=== PATIENT | male | born 1960 | race Caucasian/White ===

== ENCOUNTER 2016-08-31 09:08 | Inpatient (IN) | payer OTHER ==
[2016-08-31] VITALS (9 sets, daily range): BP systolic 132–187; BP diastolic 76–127; PULSE 79–109; RESP 18–22; TEMP 96.2–98.7; O2SAT 92–100
[~2016-08-31] VITALS: Ht 167.6 cm; Wt 66.3 kg
[~2016-08-31 09:08] MED LIST: NAPR500 PO; RANI150C PO; XANA1TAB6 PO
[2016-08-31] MEDS ORDERED: SODIUM CHLOR 0.9% 1000 ML INJ 1,000 ML IV SCH (09:30)
[2016-08-31] MEDS ORDERED: ASPI325T PO (09:31)
[2016-08-31] MEDS ORDERED: LISI-519 PO (09:31)
--- NOTE | 2016-08-31 09:43 | RADRPT ---
EXAM DATE/TIME: 08/31/2016 09:34 [facility] COMPARISON: No previous studies available for comparison. INDICATIONS : Short of breath. MEDICAL HISTORY : Hypertension. SURGICAL HISTORY : None. ENCOUNTER: Initial ACUITY: 1 day PAIN SCORE: 0/10 LOCATION: Bilateral chest FINDINGS: A single view of the chest demonstrates the lungs to be symmetrically aerated without evidence of mas s, infiltrate or effusion. The cardiomediastinal contours are unremarkable. Osseous structures are intact. CONCLUSION: 1. No acute cardiopulmonary findings. Adolph Pepe MD on August 31, 2016 at 9:40 Board Certified Radiologist. This report was verified electronically.
[2016-08-31 09:51] LABS: AUTOMATED NEUTROPHIL # 5.3 TH/MM3 (1.8-7.7); BASOPHIL # 0.1 TH/MM3 (0-0.2); BASOPHIL % 0.9 % (0.0-2.0); EOSINOPHIL # 0.4 TH/MM3 (0-0.4); EOSINOPHIL % 4.2 % (0.0-4.0); HEMATOCRIT 43.5 % (39.0-51.0); HEMO FLAGS DIFF FINAL; LYMPHOCYTE # 2.9 TH/MM3 (1.0-4.8); MEAN CELL VOLUME 88.7 FL (80.0-100.0); MEAN CORPUSCULAR HEMOGLOBIN 30.8 PG (27.0-34.0); MEAN CORPUSCULAR HGB CONC 34.7 % (32.0-36.0); MONO % 8.4 % (0.0-8.0); NEUT % 55.5 % (16.0-70.0); PLATELET COUNT 304 TH/MM3 (150-450); RED BLOOD COUNT 4.91 MIL/MM3 (4.50-5.90); RED CELL DISTRIBUTION WIDTH 14.3 % (11.6-17.2); WHITE BLOOD COUNT 9.5 TH/MM3 (4.0-11.0)
[2016-08-31 09:58] LABS: ANION GAP 12 MEQ/L (5-15); AST (GOT) 32 U/L (15-37); BICARBONATE 20.9 MEQ/L (21.0-32.0); BLOOD UREA NITROGEN 14 MG/DL (7-18); CHLORIDE 102 MEQ/L (98-107); GLOMERULAR FILTRATION RATE 92 ML/MIN (>89); POTASSIUM 3.8 MEQ/L (3.5-5.1); SODIUM (NA) 135 MEQ/L (136-145)
[2016-08-31 10:04] LABS: ALKALINE PHOSPHATASE 150 U/L (45-117); ALT (GPT) 33 U/L (12-78); TOTAL BILIRUBIN ADULT 0.3 MG/DL (0.2-1.0)
--- NOTE | 2016-08-31 10:08 | RADRPT ---
EXAM DATE/TIME: 08/31/2016 09:40 [facility] COMPARISON: CT BRAIN W/O CONTRAST, April 13, 2016, 16:01. INDICATIONS : Altered mental status, right side weakness. RADIATION DOSE: 56.35 CTDIvol (mGy) MEDICAL HISTORY : Cerebrovascular disease. Hypertension. SURGICAL HISTORY : None. ENCOUNTER: Initial ACUITY: 1 day PAIN SCALE: Non-responsive LOCATION: Cranial TECHNIQUE: Multiple contiguous axial images were obtained of the head. Using automated exposure control and adj ustment of the mA and/or kV according to patient size, radiation dose was kept as low as reasonably a chievable to obtain optimal diagnostic quality images. FINDINGS: Old lacunar infarcts are noted within the right basal ganglia and are stable. There is no acute infarct, acute hemorrhage, mass effect or extra-axial fluid collections. The ventricles, sulci cisterns are normal in size, shape and position for the patients age. The bone windows are unremarkable. CONCLUSION: 1. Old lacunar infarcts within the right basal ganglia. 2. No acute infarct, acute hemorrhage, mass effect or extra-axial fluid collections. Zheng Yan MD on August 31, 2016 at 9:50 Board Certified Radiologist. This report was verified electronically.
[2016-08-31] MEDS ORDERED: HEPARIN SODIUM - SQ 10,000 UNITS/ML VIAL SQ ONE (10:30)
--- NOTE | 2016-08-31 10:33 | PD ---
HPI Chief Complaint: Neuro Symptoms/ Deficits Time Seen by Provider: 09:16 Travel History International Travel<30 days: No Contact w/Intl Traveler<30days: No Traveled to known affect area: No History of Present Illness HPI 56-year-old male was brought by ems after family member found him this morning with aphasia, right-sided weakness. Patient was seen in emergency room and [place] in April 2016 with acute CVA. Patient had residual left-sided weakness. Patient had a CT scan of the brain which was normal at that time. Patient was advised to be admitted however patient left AGAINST MEDICAL ADVICE. Patient has been taken aspirin 325 mg daily and lisinopril for his high blood pressure. Patient has been seen by Dr. Thrasher. Patient states that he woke up this morning and went to the bathroom and almost fell over because of right- sided weakness. Patient last seen normal was last night. Patient could not speak this morning. Family member called EMS. Patient was transferred to ED for evaluation. PFSH Past Medical History Hx Anticoagulant Therapy: Yes (ASPIRIN ) Arthritis: Yes Anxiety: Yes Cerebrovascular Accident: Yes Diminished Hearing: No Hypertension: Yes Immunizations Current: No Tetanus Vaccination: Unknown Influenza Vaccination: No ?: Not Past Surgical History Surgical History: No Previous Surgery Other Surgery: Yes (HERNIA) Social History Alcohol Use: Yes (OCCASIONALLY ) Tobacco Use: Yes Substance Use: No Allergies-Medications (Allergen,Severity, Reaction): Coded Allergies: No Known Allergies (Verified , 04/17/05) Reported Meds & Prescriptions Reported Meds & Active Scripts Active Reported Lisinopril 5 Mg Tab 5 Mg PO DAILY Review of Systems General / Constitutional: No: Fever Eyes: No: Visual changes HENT: No: Headaches Cardiovascular: No: Chest Pain or Discomfort Respiratory: No: Shortness of Breath Gastrointestinal: No: Abdominal Pain Genitourinary: No: Dysuria Musculoskeletal: No: Pain Skin: No Rash Neurologic: No: Weakness Psychiatric: No: Depression Endocrine: No: Polydipsia Hematologic/Lymphatic: No: Easy Bruising Physical Exam Narrative GENERAL: Well-nourished, well-developed patient. SKIN: Warm and dry. HEAD: Normocephalic. EYES: No scleral icterus. No injection or drainage. Pupils 3 mm equal reactive. NECK: Supple, trachea midline. No JVD or lymphadenopathy. CARDIOVASCULAR: Regular rate and rhythm without murmurs, gallops, or rubs. RESPIRATORY: Breath sounds equal bilaterally. No accessory muscle use. GASTROINTESTINAL: Abdomen soft, non-tender, nondistended. MUSCULOSKELETAL: No cyanosis, or edema. BACK: Nontender without obvious deformity. No CVA tenderness. Neurologic exam: Patient's aphasia. Patient has weakness of right arm right leg. Sensory function intact. Patient cannot raise the right arm off the bed. Patient can minimally raise the right leg off the bed. Positive Babinski bilaterally. Positive clonus left leg. Data Data Last Documented VS Vital Signs Date Time Temp Pulse Resp B/P Pulse Ox O2 Delivery O2 Flow Rate FiO2 08/31/16 10:16 97.7 84 22 171/127 100 Nasal Cannula 2 Orders Electrocardiogram (08/31/16 ) Complete Blood Count With Diff (08/31/16 09:22) Comprehensive Metabolic Panel (08/31/16 09:22) Prothrombin Time / Inr (Pt) (08/31/16 09:22) Act Partial Throm Time (Ptt) (08/31/16:22) Urinalysis - C+S If Indicated (08/31/16 09:22) Chest, Single Ap (08/31/16 09:22) Ct Brain W/O Iv Contrast(Rout) (08/31/16 09:22) Iv Access Insert/Monitor (08/31/16 09:22) Ecg Monitoring (08/31/16 09:22) Oximetry (08/31/16 09:22) Sodium Chlor 0.9% 1000 Ml Inj (Ns 1000 M (08/31/16 09:30) [place] (08/31/16 09:22) Mri Brain W/O Contrast (08/31/16 10:20) Mra Brain W/O Contrast (Cow) (08/31/16 10:20) Mra Carotids W Contrast (08/31/16 10:20) Labs Laboratory Tests Test 08/31/16 09:30 White Blood Count 9.5 TH/MM3 Red Blood Count 4.91 MIL/MM3 Hemoglobin 15.1 GM/DL Hematocrit 43.5 % Mean Corpuscular Volume 88.7 FL Mean Corpuscular Hemoglobin 30.8 PG Mean Corpuscular Hemoglobin 34.7 % Concent Red Cell Distribution Width 14.3 % Platelet Count 304 TH/MM3 Mean Platelet Volume 8.0 FL Neutrophils (%) (Auto) 55.5 % Lymphocytes (%) (Auto) 31.0 % Monocytes (%) (Auto) 8.4 % Eosinophils (%) (Auto) 4.2 % Basophils (%) (Auto) 0.9 % Neutrophils # (Auto) 5.3 TH/MM3 Lymphocytes # (Auto) 2.9 TH/MM3 Monocytes # (Auto) 0.8 TH/MM3 Eosinophils # (Auto) 0.4 TH/MM3 Basophils # (Auto) 0.1 TH/MM3 CBC Comment DIFF FINAL Differential Comment Sodium Level 135 MEQ/L Potassium Level 3.8 MEQ/L Chloride Level 102 MEQ/L Carbon Dioxide Level 20.9 MEQ/L Anion Gap 12 MEQ/L Blood Urea Nitrogen 14 MG/DL Creatinine 0.86 MG/DL Estimat Glomerular Filtration 92 ML/MIN Rate Random Glucose 123 MG/DL Calcium Level 9.1 MG/DL Total Bilirubin 0.3 MG/DL Aspartate Amino Transf 32 U/L (AST/SGOT) Alanine Aminotransferase 33 U/L (ALT/SGPT) Alkaline Phosphatase 150 U/L Total Protein 7.8 GM/DL Albumin 4.0 GM/DL [facility] Medical Decision Making Medical Screen Exam Complete: Yes Emergency Medical Condition: Yes Medical Record Reviewed: Yes Differential Diagnosis Differential diagnosis including TIA, CVA. Narrative Course 56-year-old male with aphasia, right-sided weakness. Patient woke up with symptoms this morning. History of CVA in April 2016. Patient's on aspirin 325 mg daily. Patient took aspirin by mouth this morning with difficulty. Patient woke up this morning with the symptoms. Patient is not a candidate for TPA. I spoke with Dr. Salena valdovinos, neurologist hand stonecutter. Advised aspirin and MRI/MRA. Normal saline solution 70 cc an hour. Head of bed flat. O2 2 L nasal cannula. Patient's symptoms waxing and waning. I spoke with Dr. Martino , advised heparin 5000 unit subcutaneous now and every 8 hour. Proceed with MRI /MRA. Diagnosis Primary Impression: Acute CVA (cerebrovascular accident) Trever Virgen MD Aug 31, 2016 10:33
[2016-08-31 10:34] LABS: APTT (PATIENT) 29.9 SEC (24.3-30.1); PROTHROMBIN TIME - PATIENT 11.3 SEC (9.8-11.6)
[2016-08-31] MEDS ORDERED: SODIUM CHLORIDE 0.9% FLUSH 5 ML FLUSH IVF PRN ×2 (11:00→11:15)
[2016-08-31] MEDS ORDERED: ONDANSETRON HCL 4 MG/2 ML VIAL IV PRN (11:00)
[2016-08-31 11:12] LABS: BACTERIA, URINE RARE /hpf; BLOOD, URINE NEG (NEG); GLUCOSE,URINE NEG (NEG); KETONE, URINE NEG (NEG); MUCUS URINE FEW /lpf (OCC); NITRITE,URINE NEG (NEG); PH, URINE 5.5 (5.0-8.5); URINE COLOR LIGHT-YELLOW (YELLW/STRAW)
[2016-08-31 11:14] LABS: COMMENT (UR) CULT NOT INDICATED; CULTURE IF INDICATED CULT NOT INDICATED
[2016-08-31] MEDS ORDERED: ENALAPRILAT 1.25 MG/ML VIAL IV PRN (11:15)
--- NOTE | 2016-08-31 12:37 | HHI.HP ---
[facility] Service [facility] Primary Care Physician No Primary Care Physician Admission Diagnosis acute CVA Diagnoses: (1) Acute CVA (cerebrovascular accident) Chief Complaint: slurred speech and right sided weakness Travel History International Travel<30 Days: No Contact w/Intl Traveler <30 Da: No Traveled to Known Affected Are: No History of Present Illness 56-year-old male with a history of prior CVA 04/2016 was brought to the ED by EMS for evaluation of aphasia and right-sided weakness. The patient and , around 8 AM this morning as patient's walked about from work his balance and upon himself referral for at least 10 minutes however was able to get up and get back to his room where his immediately called EMS due to slurred speech him and right-sided weakness. Patient reports feeling well prior to going to bed last night. Otherwise he has no chest pain, shortness of breath. Review of Systems Other Other 12 systems reviewed and are negative except for the one mentioned in history of present illness Past Family Social History Past Medical History Arthritis: Yes Anxiety: Yes Cerebrovascular Accident: Yes Hypertension: Yes Past Surgical History HERNIA repair Reported Medications Lisinopril 5 Mg Tab 5 Mg PO DAILY Allergies: Coded Allergies: No Known Allergies (Verified , 04/17/05) Family History Family history positive for hypertension Social History Alcohol Use: Yes (OCCASIONALLY ) Tobacco Use: Yes Substance Use: No Physical Exam Vital Signs Vital Signs Date Time Temp Pulse Resp B/P Pulse Ox O2 Delivery O2 Flow Rate FiO2 08/31/16 11:45 92 21 08/31/16 11:23 97.7 79 22 158/76 99 Nasal Cannula 2 08/31/16 10:16 97.7 84 22 171/127 100 Nasal Cannula 2 08/31/16 09:29 100 Nasal Cannula 2 08/31/16 09:16 97.7 103 22 187/113 100 Nasal Cannula 2 08/31/16 09:16 103 18 100 Room Air 08/31/16 09:10 98.7 101 18 187/113 97 Physical Exam GENERAL: This is a well-nourished, well-developed patient, in no apparent distress however with slurred speech. SKIN: No rashes, ecchymoses or lesions. Cool and dry. HEAD: Atraumatic. Normocephalic. No temporal or scalp tenderness. EYES: Pupils equal round and reactive. Extraocular motions intact. No scleral icterus. No injection or drainage. ENT: Nose without bleeding, purulent drainage or septal hematoma. Throat without erythema, tonsillar hypertrophy or exudate. Uvula midline. Airway patent. NECK: Trachea midline. No JVD or lymphadenopathy. Supple, nontender, no meningeal signs. CARDIOVASCULAR: Regular rate and rhythm without murmurs, gallops, or rubs. RESPIRATORY: Clear to auscultation. Breath sounds equal bilaterally. No wheezes , rales, or rhonchi. GASTROINTESTINAL: Abdomen soft, non-tender, nondistended. No hepato-splenomegaly , or palpable masses. No guarding. MUSCULOSKELETAL: Extremities without clubbing, cyanosis, or edema. No joint tenderness, effusion, or edema noted. No calf tenderness. Negative Homans sign bilaterally.3/5 RUE and RLE NEUROLOGICAL: Awake and alert. Right-sided weakness Laboratory Laboratory Tests Test 08/31/16 08/31/16 08/31/16 09:30 10:06 10:56 White Blood Count 9.5 Red Blood Count 4.91 Hemoglobin 15.1 Hematocrit 43.5 Mean Corpuscular Volume 88.7 Mean Corpuscular Hemoglobin 30.8 Mean Corpuscular Hemoglobin 34.7 Concent Red Cell Distribution Width 14.3 Platelet Count 304 Mean Platelet Volume 8.0 Neutrophils (%) (Auto) 55.5 Lymphocytes (%) (Auto) 31.0 Monocytes (%) (Auto) 8.4 Eosinophils (%) (Auto) 4.2 Basophils (%) (Auto) 0.9 Neutrophils # (Auto) 5.3 Lymphocytes # (Auto) 2.9 Monocytes # (Auto) 0.8 Eosinophils # (Auto) 0.4 Basophils # (Auto) 0.1 CBC Comment DIFF FINAL Differential Comment Sodium Level 135 Potassium Level 3.8 Chloride Level 102 Carbon Dioxide Level 20.9 Anion Gap 12 Blood Urea Nitrogen 14 Creatinine 0.86 Estimat Glomerular Filtration 92 Rate Random Glucose 123 Calcium Level 9.1 Total Bilirubin 0.3 Aspartate Amino Transf 32 (AST/SGOT) Alanine Aminotransferase 33 (ALT/SGPT) Alkaline Phosphatase 150 Total Protein 7.8 Albumin 4.0 Prothrombin Time 11.3 Prothromb Time International 1.0 Ratio Activated Partial 29.9 Thromboplast Time Urine Color LIGHT-YELLOW Urine Turbidity CLEAR Urine pH 5.5 Urine Specific [place] 1.007 Urine Protein NEG Urine Glucose (UA) NEG Urine Ketones NEG Urine Occult Blood NEG Urine Nitrite NEG Urine Bilirubin NEG Urine Urobilinogen LESS THAN 2.0 Urine Leukocyte Esterase NEG Urine RBC LESS THAN 1 Urine WBC LESS THAN 1 Urine Bacteria RARE Urine Mucus FEW Microscopic Urinalysis Comment CULT NOT INDICATED Result Diagram: 08/31/1692908/31/16929 Imaging Last Impressions Head CT 08/31/16921 Signed Impressions: Service Date/Time: Wednesday, August 31, 2016 09:40 - CONCLUSION: 1. Old lacunar infarcts within the right basal ganglia. 2. No acute infarct, acute hemorrhage, mass effect or extra-axial fluid collections. Zheng Yan MD Chest X-Ray 08/31/16921 Signed Impressions: Service Date/Time: Wednesday, August 31, 2016 09:34 - CONCLUSION: 1. No acute cardiopulmonary findings. Adolph Pepe MD Assessment and Plan Problem List: (1) Acute CVA (cerebrovascular accident) ICD Code: I63.9 Status: Acute Assessment and Plan 56-year-old male with Acute CVA: Treatment per stroke protocol -Continue with aspirin -Start statin therapy -NIHSS, Neuro checks, Monitor on telemetry -PT/OT/ST evaluations, consult rehab medicine -allow permissive HTN, IV Vasotec and IV labetalol if SBP >220 -Check lipid profile and HgbA1c -Check carotid U/S -Head CT 08/31/16 noted and review by me with the finding of Old lacunar infarcts within the right basal ganglia. No acute infarct, acute hemorrhage, mass effect -Check brain MRI/MRA -Check echocardiogram -Neurology consulted History of hypertension: We will allow for permissive hypertension Tobacco abuse: Counseled to quit DVT prophylaxis: Bilateral SCDs Code Status Full code Discussed Condition With Patient, , ED physician Physician Certification 2 Midnight Certification Type: Admission for Inpatient Services Order for Inpatient Services The services are ordered in accordance with Medicare regulations or non- Medicare payer requirements, as applicable. In the case of services not specified as inpatient-only, they are appropriately provided as inpatient services in accordance with the 2-midnight benchmark. Estimated LOS (days): 2 days is the estimated time the patient will need to remain in the hospital, assuming treatment plan goals are met and no additional complications. Post-Hospital Plan: Not yet determined Alex Torres MD Aug 31, 2016 12:37
--- NOTE | 2016-08-31 12:59 | RADRPT ---
EXAM DATE/TIME: 08/31/2016 12:10 [facility] COMPARISON: CT BRAIN W/O CONTRAST, April 13, 2016, 16:01. INDICATIONS : Right sided weakness. MEDICAL HISTORY : Hypertension. SURGICAL HISTORY : None. ENCOUNTER: Initial ACUITY: 1 day PAIN SCORE: 0/10 LOCATION: head TECHNIQUE: Multiplanar, multisequence MRI of the brain was performed without contrast. FINDINGS: There is a focal area of restricted diffusion involving the left conklin radiata consistent with small acute infarct in the left middle cerebral artery distribution. No acute hemorrhage, midline shift or extra- axial fluid collections are noted. The ventricles, sulci and cisterns are unremarkable. There are old lacunar infarcts within the right basal ganglia. Minimal periventricular white matter small vessel ischemic changes are noted bilaterally. CONCLUSION: 1. Focal area of restricted diffusion involving the left conklin radiata consistent with small acute i nfarct in the left middle cerebral artery distribution. 2. Old lacunar infarcts within the right basal ganglia. 3. Minimal periventricular white matter small vessel ischemic changes bilaterally. 4. No acute hemorrhage, midline shift or extra-axial fluid collections. Dr. Virgen was called with the findings of the examination 12:55 PM on 08/31/16. Zheng Yan MD on August 31, 2016 at 12:47 Board Certified Radiologist. This report was verified electronically.
[2016-08-31] MEDS ORDERED: GADODIAMIDE PF 287 MG/ML 20 ML VIAL (for RAD MRI) IV ONE (13:03)
--- NOTE | 2016-08-31 13:25 | RADRPT ---
EXAM DATE/TIME: 08/31/2016 12:10 [facility] COMPARISON: MRA CAROTIDS W CONTRAST, August 31, 2016, 12:10. INDICATIONS : Right sided weakness. MEDICAL HISTORY : Hypertension. SURGICAL HISTORY : None. ENCOUNTER: Initial ACUITY: 1 day PAIN SCORE: 0/10 LOCATION: head Please note a normal MRA of the brain does not entirely exclude the possibility of a small aneurysm, nor the possibility of distal intracranial vessel disease. TECHNIQUE: 3D time of flight MRA was performed. Source images, multiplanar STS MIP, and 3D volume MIP reconstru ctions were reviewed. FINDINGS: There is excellent visualization of the major intracranial arteries out to the second-order branch ve ssels. Scattered atherosclerotic plaque most pronounced within the right M1 segment where there are s cattered areas of mild luminal narrowing. No hemodynamically significant stenosis appreciated. There is no evidence for aneurysm, vessel truncation or stenosis, and no evidence for vascular malformatio n.CONCLUSION: 1. Atherosclerotic plaque without hemodynamically significant stenosis observed. Wiliam Santizo Jr., MD on August 31, 2016 at 13:20 Board Certified Radiologist. This report was verified electronically.
[2016-08-31] MEDS ORDERED: RESP: ALBUTEROL 2.5 MG/IPRATROPIUM 0.5 MG NEB (PRN) NEB (13:30)
--- NOTE | 2016-08-31 13:31 | RADRPT ---
EXAM DATE/TIME: 08/31/2016 12:10 [facility] COMPARISON: No previous studies available for comparison. INDICATIONS : Right sided weakness. CONTRAST: 20 cc Omniscan (gadodiamide) IV MEDICAL HISTORY : Hypertension. SURGICAL HISTORY : None. ENCOUNTER: Initial ACUITY: 1 day PAIN SCORE: 0/10 LOCATION: neck Percent stenosis is calculated using the diameter of the stenotic region over the diameter of the nor mal distal internal carotid artery. TECHNIQUE: Bolus infused MRA of the extracranial circulation was performed using a neurovascular coil. Post pro cessing was performed including rotationg subvolume maximum intensity projections of each carotid art corie, rotating full volume maximum intensity projections of both carotid arteries, sagittal and conklin l sliding thin slab reformations of each carotid artery, and left oblique sliding thin slab reformati on through the aortic arch to include the origin of the arch branch vessels. FINDINGS: AORTIC ARCH: There is a three vessel origin of the great vessels from the aorta. No evidence of ostial narrowing. RIGHT CAROTID: Atherosclerotic plaque generates a 40% stenosis involving the proximal ICA. No ulceration. The remain ing extracranial ICA, ECA, and CCA are patent. LEFT CAROTID: An ulcerated plaque is seen involving the proximal ICA. This does not generate luminal narrowing util izing NASCET criteria. The remaining ICA, ECA and CCA are patent. VERTEBRALS: The vertebral arteries have a symmetric diameter. No stenotic lesions are seen. CONCLUSION: 1. 40% stenosis involving the proximal right ICA. Ulcerated plaque involving the left ICA without noa nosis. Wiliam Santizo Jr., MD on August 31, 2016 at 13:23 Board Certified Radiologist. This report was verified electronically.
[2016-08-31 15:35] LABS: HEMOGLOBIN A1a 1.5 %; HEMOGLOBIN Ao 84.3 %; HEMOGLOBIN F 0.9 %; HEMOGLOBIN LA1C 2.1 %; HEMOGLOBIN P3 3.8 %
[2016-08-31] MEDS: LORazepam 2 MG/ML VIAL IV PUSH PRN (15:55)
--- NOTE | 2016-08-31 17:28 | EC ---
Study Study Date:08/31/2016 STUDY CONCLUSIONS SUMMARY LEFT VENTRICLE: The cavity size was normal. Wall thickness was normal. Systolic function was normal. The estimated ejection fraction was in the range of 55% to 60%. Wall motion was normal; there were no regional wall motion abnormalities. If LV function is below 40, please consider prescribing an ACEI or ARB or document rationale for non-use. PROCEDURE DATA STUDY STATUS: Elective. Procedure: Transthoracic echocardiography. Image quality was good. Scanning was performed from the parasternal, apical, and subcostal acoustic windows. Study completion: The patient tolerated the procedure well. Transthoracic echocardiography. M-mode, complete 2D, complete spectral Doppler, and color Doppler. Patient status: Inpatient. CARDIAC ANATOMY LEFT VENTRICLE: The cavity size was normal. Wall thickness was normal. Systolic function was normal. The estimated ejection fraction was in the range of 55% to 60%. Wall motion was normal; there were no regional wall motion abnormalities. AORTIC VALVE: The valve appears to be grossly normal. Probably trileaflet. Doppler: There was no stenosis. No significant regurgitation. MITRAL VALVE: The valve appears to be grossly normal. Doppler: There was no evidence for stenosis. Trace regurgitation. LEFT ATRIUM: The atrium was at the upper limits of normal in size. RIGHT VENTRICLE: The cavity size was normal. PULMONIC VALVE: The valve appears to be grossly normal. Doppler: There was no evidence for stenosis. No regurgitation. TRICUSPID VALVE: The valve appears to be grossly normal. Doppler: There was no evidence for stenosis. Trace regurgitation. PERICARDIUM: There was no pericardial effusion. BASIC MEASUREMENTS ADULT NORMAL Left ventricle LV internal dimension, ED, chordal level, 43.2 mm 43-52 PLAX LV internal dimension, ES, chordal level, 31.4 mm 23-38 PLAX Fractional shortening, chordal level, PLAX *27 % >29 LV posterior wall thickness, ED 10.7 mm IVS/LVPW ratio, ED 1.24 <1.3 Ventricular septum Septal thickness, ED 13.3 mm Aortic valve Leaflet separation 25 mm 15-26 Right ventricle RV internal dimension, ED, PLAX 20.9 mm 19-38 BASIC MEASUREMENTS ADULT NORMAL Aortic valve Leaflet separation 25 mm 15-26 Aorta Root diameter, ED 33 mm 20-37 Left atrium Anterior-posterior dimension, ES 36 mm 19-40 LA/aortic root ratio 1.09 LEGEND: Mean values are shown as u=mean value. Asterisk (*) carlson values outside specified normal range. Prepared and signed by David Wilkerson [id number]
[2016-08-31] MEDS: HEPARIN SODIUM - SQ 10,000 UNITS/ML VIAL SQ SCH (17:51)
--- NOTE | 2016-08-31 18:35 | EKG ---
Date Performed: 08/31/2016 Time Performed: 09:13:56 PTAGE: 56 years EKG: SINUS TACHYCARDIA INDETERMINATE AXIS LEFT POSTERIOR FASCICULAR BLOCK PROBABLE INFERIOR MYOC ARDIAL INFARCTION ABNORMAL ECG PREVIOUS TRACING : 04/13/2016 15.37 Since previous tracing, no significant change noted DOCTOR: Fahad Cooper Interpretating Date/Time 08/31/2016 18:34:27
[2016-08-31] MEDS ORDERED: ACETAMINOPHEN 325 MG TAB PO ONE (20:45)
[2016-08-31] MEDS ORDERED: IOHEXOL 350 MG/ML 10 ML VIAL (for RAD DIAG) IV ONE (20:50)
[2016-08-31] MEDS ORDERED: SODIUM CHLORIDE 0.9% FLUSH 5 ML FLUSH IVF SCH (21:00)
[2016-08-31] MEDS ORDERED: ATORVASTATIN 10 MG TAB PO SCH (21:00)
[2016-08-31] MEDS: DIPYRIDAMOLE/ASPIRIN 200 MG/25 MG CAP PO SCH (21:09)
[2016-08-31] MEDS: SODIUM CHLORIDE 0.9% FLUSH 5 ML FLUSH IVF SCH (21:10)
[2016-08-31] MEDS: SODIUM CHLOR 0.9% 1000 ML INJ 1,000 ML IV SCH (21:14)
--- NOTE | 2016-08-31 21:28 | RADRPT ---
EXAM DATE/TIME: 08/31/2016 20:47 [facility] COMPARISON: MRA BRAIN W/O CONTRAST, August 31, 2016, 12:10. INDICATIONS : Right sided weakness and aphasia. IV CONTRAST: 75 cc Omnipaque 350 (iohexol) IV ; Cumulative dose for multiple exams. RADIATION DOSE: 18.64 CTDIvol (mGy) ; Combined studies MEDICAL HISTORY : Cerebrovascular disease. Hypertension. SURGICAL HISTORY : None. ENCOUNTER: Initial ACUITY: 1 day PAIN SCALE: 0/10 LOCATION: Bilateral cranial TECHNIQUE: Volumetric scanning was performed using a multi-row detector CT scanner. The data was post processed with a variety of visualization algorithms including full volume maximum intensity projection, multi -planar sliding thin slab reformation, curved planar reformation, and surface rendering techniques. Using automated exposure control and adjustment of the mA and/or kV according to patient size, radiat ion dose was kept as low as reasonably achievable to obtain optimal diagnostic quality images. FINDINGS: There is excellent visualization of the major intracranial arteries out to the second-order branch ve ssels. Scattered areas of atherosclerotic plaque. This is partially calcified within the intracaverno us segment of the right ICA. Minimal luminal narrowing is seen involving the proximal M2 branches on the right in the distal M1 on the left. No hemodynamically significant stenosis is observed. Both erika tebral arteries are equal in size and supply the basilar. There is no evidence for aneurysm or vascu lar malformation. CONCLUSION: Mild atherosclerotic plaque without a hemodynamically significant stenosis. Wiliam Santizo Jr., MD on August 31, 2016 at 21:23 Board Certified Radiologist. This report was verified electronically.
--- NOTE | 2016-08-31 21:33 | RADRPT ---
EXAM DATE/TIME: 08/31/2016 20:47 [place] COMPARISON: No previous studies available for comparison. INDICATIONS : Right sided weakness and aphasia IV CONTRAST: 75 cc Omnipaque 350 (iohexol) IV ; Cumulative dose for multiple exams. RADIATION DOSE: 18.64 CTDIvol (mGy) ; Combined studies MEDICAL HISTORY : Cerebrovascular disease. Hypertension. SURGICAL HISTORY : None. ENCOUNTER: Initial ACUITY: 1 day PAIN SCALE: 0/10 LOCATION: Bilateral neck TECHNIQUE: Volumetric scanning was performed using a multirow detector CT scanner. The data was post processed with a variety of visualization algorithms including full-volume maximum intensity projection, multip lanar sliding thin-slab reformation, curved-planar reformation, and surface-rendering techniques. Us ing automated exposure control and adjustment of the mA and/or kV according to patient size, radiatio n dose was kept as low as reasonably achievable to obtain optimal diagnostic quality images. FINDINGS: AORTIC ARCH: There is a three-vessel origin of the great vessels from the aorta. No evidence of ostial narrowing. RIGHT CAROTID: The common carotid artery is patent. Scattered calcified plaque involving the carotid bulb and proxim al ICA. No ulceration or luminal narrowing utilizing NASCET criteria. The extracranial ICA, ECA, and CCA are patent. LEFT CAROTID: The common carotid artery is patent. Scattered calcified plaque involving the carotid bulb and proxim al ICA. No ulceration or luminal narrowing utilizing NASCET criteria. The extracranial ICA, ECA, and CCA are patent. VERTEBRALS: The vertebral arteries have a symmetric diameter. No stenotic lesions are seen. CONCLUSION: 1. Patent carotid arteries and vertebral arteries bilaterally. Wiliam Santizo Jr., MD on August 31, 2016 at 21:26 Board Certified Radiologist. This report was verified electronically.
[2016-08-31] MEDS ORDERED: HALOPERIDOL LACTATE 5 MG/ML AMP IV PUSH ONE (23:00)
[2016-09-01] VITALS (8 sets, daily range): BP systolic 139–172; BP diastolic 90–100; PULSE 96–117; RESP 16–20; TEMP 96.4–98; O2SAT 94–99
[2016-09-01] MEDS ORDERED: RESP: IPRATROPIUM 0.5 MG/2.5 ML NEB NEB PRN
[2016-09-01] MEDS ORDERED: LORazepam 2 MG/ML VIAL IV PUSH ONE
[2016-09-01] MEDS: HEPARIN SODIUM - SQ 10,000 UNITS/ML VIAL SQ SCH ×3 (03:34→18:01)
[2016-09-01 07:35] LABS: HDL CHOLESTEROL 56.2 MG/DL (40.0-60.0)
[2016-09-01] MEDS: DIPYRIDAMOLE/ASPIRIN 200 MG/25 MG CAP PO SCH (08:40)
[2016-09-01] MEDS: ASPIRIN 325 MG TAB PO SCH (08:40)
[2016-09-01] MEDS: SODIUM CHLORIDE 0.9% FLUSH 5 ML FLUSH IVF SCH ×2 (09:00→19:52)
[2016-09-01] MEDS: SODIUM CHLOR 0.9% 1000 ML INJ 1,000 ML IV SCH ×2 (11:17→22:25)
--- NOTE | 2016-09-01 11:35 | PD.CONS ---
History of Present Illness Service Neurology Consult Requested By er Reason for Consult stroke Primary Care Physician No Primary Care Physician History of Present Illness 56-year-old male with a history of prior CVA 04/2016 was brought to the ED by EMS for evaluation of stroke. woke up with speech changes. onset unknown. then developed fluctuating rt sided weakness in er, some improvement in language but not back to baseline. despite recent stroke he still smokes a few cigarettes a day. takes aspirin daily. this am worse with rt sided weakness. Review of Systems Other Other 12 systems reviewed and are negative except for the one mentioned in history of present illness Past Family Social History Past Medical History Arthritis: Yes Anxiety: Yes Cerebrovascular Accident: Yes Hypertension: Yes Past Surgical History HERNIA repair Reported Medications Lisinopril 5 Mg Tab 5 Mg PO DAILY Allergies: Coded Allergies: No Known Allergies (Verified , 04/17/05) Family History Family history positive for hypertension Social History Alcohol Use: Yes (OCCASIONALLY ) Tobacco Use: Yes Substance Use: No Review of Systems All other ROS: ROS reviewed as documented in chart Past Family Social History Allergies: Coded Allergies: No Known Allergies (Verified , 04/17/05) Active Ordered Medications Current Medications Medications (Trade) Dose Ordered Sig/Ryan Route Start Time Stop Time Status Last Admin (Zofran Inj) 4 mg Q6H PRN IV 08/31/16 11:00 08/31/16 21:17 (NS Flush) 2 ml BID IVF 08/31/16 21:00 08/31/16 21:10 (NS Flush) 2 ml UNSCH PRN IVF 08/31/16 11:15 (Vasotec Inj) 1.25 mg Q4H PRN IV 08/31/16 11:15 (Heparin Inj) 5,000 units Q8H SQ 08/31/16 19:00 09/01/16 03:34 (Lipitor) 10 mg HS PO 08/31/16 21:00 08/31/16 21:10 (Aspirin) 325 mg DAILY PO 09/01/16 09:00 09/01/16 08:40 (Ativan Inj) 1 mg Q12H PRN IV PUSH 08/31/16 16:00 08/31/16 15:55 Dipyridamole/ Aspirin 1 cap 1 cap DAILY PO 08/31/16 19:45 09/01/16 08:40 (NS 1000 ml Inj) 1,000 ml @ 75 mls/hr [id number] IV 08/31/16 19:45 08/31/16 21:14 Exam I&O / VS 08/31/16 08/31/16 09/01/16 15:00 23:00 07:00 Intake Total 825 ml Output Total 300 ml 300 ml Balance -300 ml 525 ml Intake IV Total 825 ml Output Urine Total 300 ml 300 ml # Voids 1 # Bowel Movements 0 0 Vital Signs Date Time Temp Pulse Resp B/P Pulse Ox O2 Delivery O2 Flow Rate FiO2 09/01/16 08:52 96.4 109 20 171/100 94 09/01/16 06:26 96.5 111 16 147/92 96 09/01/16 01:00 107 09/01/16 00:00 96.5 117 16 172/99 99 08/31/16 22:09 20 08/31/16 20:00 97.4 109 22 145/97 99 08/31/16 17:21 96.7 94 20 152/91 97 08/31/16 13:36 96.2 84 18 132/84 99 08/31/16 11:45 92 21 08/31/16 11:23 97.7 79 22 158/76 99 Nasal Cannula 2 General: Alert and Oriented, No acute distress Respiratory: Non-labored respirations Neurologic: Alert Psychiatric: Cooperative Exam Comments follows, expressive aphasia, ou 3-2mm, rt facial weakness, rt hemiplegia 0/5 with increased tone, Review/Management Diagnosis/Plan: (1) Acute ischemic left MCA stroke Plan: likely 2/2 atherosclerotic dz moderate to severe dyslipidemia recs tobacco cessation aggrenox 1 tab po qd x 1 week, then bid statin bp/lipid control exercise regular f/u with pcp p.t. d/w pt and will need snf (2) Acute CVA (cerebrovascular accident) (3) Tobacco abuse Patrick Martino MD Sep 01, 2016 11:34
--- NOTE | 2016-09-01 14:40 | HHI.PR ---
Subjective Remarks c/o right sided weakness. Objective Vitals Vital Signs Date Time Temp Pulse Resp B/P Pulse Ox O2 Delivery O2 Flow Rate FiO2 09/01/16 12:30 97.2 101 20 139/94 96 09/01/16 11:46 97 09/01/16 08:52 96.4 109 20 171/100 94 09/01/16 06:26 96.5 111 16 147/92 96 09/01/16 01:00 107 09/01/16 00:00 96.5 117 16 172/99 99 08/31/16 22:09 20 08/31/16 20:00 97.4 109 22 145/97 99 08/31/16 17:21 96.7 94 20 152/91 97 08/31/16 08/31/16 09/01/16 15:00 23:00 07:00 Intake Total 825 ml Output Total 300 ml 300 ml Balance -300 ml 525 ml Intake IV Total 825 ml Output Urine Total 300 ml 300 ml # Voids 1 # Bowel Movements 0 0 Result Diagram: 08/31/1630 08/31/16 0930 Imaging Last Impressions Neck Magnetic Resonance Angiography 08/31/16 1020 Signed Impressions: Service Date/Time: Wednesday, August 31, 2016 12:10 - CONCLUSION: 1. 40%% stenosis involving the proximal right ICA. Ulcerated plaque involving the left ICA without stenosis. Wiliam Santizo Jr., MD Head Magnetic Resonance Angiography 08/31/16 1020 Signed Impressions: Service Date/Time: Wednesday, August 31, 2016 12:10 - CONCLUSION: 1. Atherosclerotic plaque without hemodynamically significant stenosis observed. Wiliam Santizo Jr., MD Brain MRI 08/31/16 1020 Signed Impressions: Service Date/Time: Wednesday, August 31, 2016 12:10 - CONCLUSION: 1. Focal area of restricted diffusion involving the left conklin radiata consistent with small acute infarct in the left middle cerebral artery distribution. 2. Old lacunar infarcts within the right basal ganglia. 3. Minimal periventricular white matter small vessel ischemic changes bilaterally. 4. No acute hemorrhage, midline shift or extra-axial fluid collections. Dr. Virgen was called with the findings of the examination 12:55 PM on 08/31/16. Zheng Yan MD Head CT 08/31/16 0922 Signed Impressions: Service Date/Time: Wednesday, August 31, 2016 09:40 - CONCLUSION: 1. Old lacunar infarcts within the right basal ganglia. 2. No acute infarct, acute hemorrhage, mass effect or extra-axial fluid collections. Zheng Yan MD Chest X-Ray 08/31/16 0922 Signed Impressions: Service Date/Time: Wednesday, August 31, 2016 09:34 - CONCLUSION: 1. No acute cardiopulmonary findings. Adolph Pepe MD Neck CTA 08/31/16 0000 Signed Impressions: Service Date/Time: Wednesday, August 31, 2016 20:47 - CONCLUSION: 1. Patent carotid arteries and vertebral arteries bilaterally. Wiliam Santizo Jr., MD Head CTA 08/31/16 0000 Signed Impressions: Service Date/Time: Wednesday, August 31, 2016 20:47 - CONCLUSION: Mild atherosclerotic plaque without a hemodynamically significant stenosis. Wiliam Santizo Jr., MD Objective Remarks GENERAL: This is a well-nourished, well-developed patient, in no apparent distress. CARDIOVASCULAR: Regular rate and rhythm without murmurs, gallops, or rubs. RESPIRATORY: Clear to auscultation. Breath sounds equal bilaterally. No wheezes , rales, or rhonchi. GASTROINTESTINAL: Abdomen soft, non-tender, nondistended. Normal active bowel sounds MUSCULOSKELETAL: Extremities without clubbing, cyanosis, or edema. NEURO: RUE 1/5, RLE 2/5, LUE 5/5, LLE 5/5 A/P Problem List: (1) Acute CVA (cerebrovascular accident) Status: Acute Plan: - comgmt with Neurology - Neck MRA (08/31/16) 40% stenosis involving the proximal right ICA. Ulcerated plaque involving the left ICA without stenosis. - Head MRA (08/31/16) Atherosclerotic plaque without hemodynamically significant stenosis observed. - Head MRI (08/31/16) 1. Focal area of restricted diffusion involving the left conklin radiata consistent with small acute infarct in the left middle cerebral artery distribution. 2. Old lacunar infarcts within the right basal ganglia. 3. Minimal periventricular white matter small vessel ischemic changes bilaterally. 4. No acute hemorrhage, midline shift or extra-axial fluid collections - IVFs - ASA, aggrenox, lipitor - physical therapy - await echocardiogram - obtain holter - will need SNF at the end of hospitalization - anticipate discharge to SNF in 1-2 days (2) HTN (hypertension) Status: Acute Plan: - permissive HTN (3) Tobacco abuse Status: Acute Plan: - smoking cessation d/w pt Problem Qualifiers (1) HTN (hypertension): Qualified Code: I10 - Essential hypertension Mikel Swift DO Sep 01, 2016 14:40
[2016-09-01 17:24] LABS: FREE T4 1.27 NG/DL (0.76-1.46)
[2016-09-01] MEDS: LORazepam 2 MG/ML VIAL IV PUSH PRN (18:01)
[2016-09-01] MEDS: PANTOPRAZOLE SODIUM 40 MG VIAL IV PUSH SCH (18:02)
[2016-09-01] MEDS: ATORVASTATIN 10 MG TAB PO SCH (19:51)
[2016-09-01] MEDS: TEMAZEPAM 15 MG CAP PO PRN (22:59)
[2016-09-02] VITALS (9 sets, daily range): BP systolic 140–173; BP diastolic 88–103; PULSE 86–106; RESP 14–22; TEMP 96.8–98.6; O2SAT 88–98
[2016-09-02] MEDS: HEPARIN SODIUM - SQ 10,000 UNITS/ML VIAL SQ SCH ×3 (02:27→18:40)
[2016-09-02] MEDS: PANTOPRAZOLE SODIUM 40 MG VIAL IV PUSH SCH (09:06)
[2016-09-02] MEDS: DIPYRIDAMOLE/ASPIRIN 200 MG/25 MG CAP PO SCH ×2 (09:06→20:40)
[2016-09-02] MEDS: ASPIRIN 325 MG TAB PO SCH (09:06)
[2016-09-02] MEDS: SODIUM CHLORIDE 0.9% FLUSH 5 ML FLUSH IVF SCH ×2 (09:07→20:40)
[2016-09-02] MEDS: LORazepam 2 MG/ML VIAL IV PUSH PRN (09:10)
--- NOTE | 2016-09-02 11:14 | HHI.PR ---
Review/Management Diagnosis/Plan: (1) Acute ischemic left MCA stroke Plan: likely 2/2 atherosclerotic dz moderate to severe dyslipidemia recs motor a little better; reiterated to pt/spouse to keep working on the rt side tobacco cessation increase aggrenox to bid; d/c aspirin statin bp/lipid control exercise regular f/u with pcp p.t. d/w pt and will need snf (2) Acute CVA (cerebrovascular accident) (3) Tobacco abuse Subjective Subjective Comments No acute events reported No headache No chest pain No dyspnea Active Medications Current Medications Medications (Trade) Dose Ordered Sig/Ryan Route Start Time Stop Time Status Last Admin (Zofran Inj) 4 mg Q6H PRN IV 08/31/16 11:00 08/31/16 21:17 (NS Flush) 2 ml BID IVF 08/31/16 21:00 09/02/16 09:07 (NS Flush) 2 ml UNSCH PRN IVF 08/31/16 11:15 (Vasotec Inj) 1.25 mg Q4H PRN IV 08/31/16 11:15 (Heparin Inj) 5,000 units Q8H SQ 08/31/16 19:00 09/02/16 02:27 (Aspirin) 325 mg DAILY PO 09/01/16 09:00 09/02/16 09:06 (Ativan Inj) 1 mg Q12H PRN IV PUSH 08/31/16 16:00 09/02/16 09:10 Dipyridamole/ Aspirin 1 cap 1 cap DAILY PO 08/31/16 19:45 09/02/16 09:06 (NS 1000 ml Inj) 1,000 ml @ 75 mls/hr [id number] IV 08/31/16 19:45 09/01/16 22:25 (Lipitor) 80 mg HS PO 09/01/16 21:00 09/01/16 19:51 (Protonix Inj) 40 mg DAILY IV PUSH 09/01/16 18:00 09/02/16 09:06 (Tums Chew) 500 mg Q2H PRN PO 09/01/16 18:00 (Restoril) 15 mg HS PRN PO 09/01/16 21:00 09/01/16 22:59 Allergies Allergies Coded Allergies No Known Allergies (Verified04/17/05) Review of Systems All other ROS: ROS reviewed as documented in chart Exam I&O / VS 09/01/16 09/01/16 09/02/16 14:59 22:59 06:59 Intake Total 660 ml 360 ml Output Total 422 ml 700 ml Balance 238 ml -340 ml Intake Oral 660 ml 360 ml Output Urine Total 422 ml 700 ml # Bowel Movements 2 3 1 Vital Signs Date Time Temp Pulse Resp B/P Pulse Ox O2 Delivery O2 Flow Rate FiO2 09/02/16 08:29 98.1 86 20 147/90 95 09/02/16 04:00 97.9 95 20 167/98 96 09/02/16 00:00 96.8 88 22 140/90 97 09/01/16 20:31 98.0 101 20 162/90 96 09/01/16 20:20 21 09/01/16 16:16 97.7 96 20 140/93 96 09/01/16 12:30 97.2 101 20 139/94 96 09/01/16 11:46 97 General: Alert and Oriented, No acute distress Respiratory: Non-labored respirations Neurologic: Alert Psychiatric: Cooperative Exam Comments follows, expressive aphasia, ou 3-2mm, rt facial weakness, rt hemiplegia 1-2/5 with increased tone, Objective Micro and Labs Laboratory Tests Test 09/01/16 16:12 Ammonia 43 Patrick Martino MD Sep 02, 2016 11:14
[2016-09-02] MEDS: SODIUM CHLOR 0.9% 1000 ML INJ 1,000 ML IV SCH (11:45)
--- NOTE | 2016-09-02 16:17 | HHI.PR ---
Subjective Remarks continued c/o right sided weakness and dysarthria Objective Vitals Vital Signs Date Time Temp Pulse Resp B/P Pulse Ox O2 Delivery O2 Flow Rate FiO2 09/02/16 15:29 98.0 89 20 160/100 95 09/02/16 11:54 97.9 88 20 155/88 95 09/02/16 10:30 98 21 09/02/16 08:29 98.1 86 20 147/90 95 09/02/16 04:00 97.9 95 20 167/98 96 09/02/16 00:00 96.8 88 22 140/90 97 09/01/16 20:31 98.0 101 20 162/90 96 09/01/16 20:20 21 09/01/16 16:16 97.7 96 20 140/93 96 09/01/16 09/01/16 09/02/16 14:59 22:59 06:59 Intake Total 660 ml 360 ml Output Total 422 ml 700 ml Balance 238 ml -340 ml Intake Oral 660 ml 360 ml Output Urine Total 422 ml 700 ml # Bowel Movements 2 3 1 Result Diagram: 08/31/1630 08/31/16 0930 Imaging Last Impressions Neck Magnetic Resonance Angiography 08/31/16 1020 Signed Impressions: Service Date/Time: Wednesday, August 31, 2016 12:10 - CONCLUSION: 1. 40%% stenosis involving the proximal right ICA. Ulcerated plaque involving the left ICA without stenosis. Wiliam Santizo Jr., MD Head Magnetic Resonance Angiography 08/31/16 1020 Signed Impressions: Service Date/Time: Wednesday, August 31, 2016 12:10 - CONCLUSION: 1. Atherosclerotic plaque without hemodynamically significant stenosis observed. Wiliam Santizo Jr., MD Brain MRI 08/31/16 1020 Signed Impressions: Service Date/Time: Wednesday, August 31, 2016 12:10 - CONCLUSION: 1. Focal area of restricted diffusion involving the left conklin radiata consistent with small acute infarct in the left middle cerebral artery distribution. 2. Old lacunar infarcts within the right basal ganglia. 3. Minimal periventricular white matter small vessel ischemic changes bilaterally. 4. No acute hemorrhage, midline shift or extra-axial fluid collections. Dr. Virgen was called with the findings of the examination 12:55 PM on 08/31/16. Zheng Yan MD Head CT 12/23/16 0922 Signed Impressions: Service Date/Time: Wednesday, August 31, 2016 09:40 - CONCLUSION: 1. Old lacunar infarcts within the right basal ganglia. 2. No acute infarct, acute hemorrhage, mass effect or extra-axial fluid collections. Zheng Yan MD Chest X-Ray 08/31/16921 Signed Impressions: Service Date/Time: Wednesday, August 31, 2016 09:34 - CONCLUSION: 1. No acute cardiopulmonary findings. Adolph Pepe MD Neck CTA 08/31/16 0000 Signed Impressions: Service Date/Time: Wednesday, August 31, 2016 20:47 - CONCLUSION: 1. Patent carotid arteries and vertebral arteries bilaterally. Wiliam Santizo Jr., MD Head CTA 08/31/16 0000 Signed Impressions: Service Date/Time: Wednesday, August 31, 2016 20:47 - CONCLUSION: Mild atherosclerotic plaque without a hemodynamically significant stenosis. Wiliam Santizo Jr., MD Objective Remarks GENERAL: This is a well-nourished, well-developed patient, in no apparent distress. CARDIOVASCULAR: Regular rate and rhythm without murmurs, gallops, or rubs. RESPIRATORY: Clear to auscultation. Breath sounds equal bilaterally. No wheezes , rales, or rhonchi. GASTROINTESTINAL: Abdomen soft, non-tender, nondistended. Normal active bowel sounds MUSCULOSKELETAL: Extremities without clubbing, cyanosis, or edema. NEURO: RUE 1/5, RLE 2/5, LUE 5/5, LLE 5/5; dysarthria A/P Problem List: (1) Acute CVA (cerebrovascular accident) Status: Acute Plan: - comgmt with Neurology - Neck MRA (08/31/16) 40% stenosis involving the proximal right ICA. Ulcerated plaque involving the left ICA without stenosis. - Head MRA (08/31/16) Atherosclerotic plaque without hemodynamically significant stenosis observed. - Head MRI (08/31/16) 1. Focal area of restricted diffusion involving the left conklin radiata consistent with small acute infarct in the left middle cerebral artery distribution. 2. Old lacunar infarcts within the right basal ganglia. 3. Minimal periventricular white matter small vessel ischemic changes bilaterally. 4. No acute hemorrhage, midline shift or extra-axial fluid collections - aggrenox, lipitor - physical therapy - echocardiogram (12/23/16) --> EF 55-60% - d/w Neurology 09/02/16, continue permissive HTN - holter --> pending - will need SNF at the end of hospitalization - anticipate discharge to SNF in 1-2 days (2) HTN (hypertension) Status: Acute Plan: - permissive HTN (3) Tobacco abuse Status: Acute Plan: - smoking cessation d/w pt Problem Qualifiers (1) HTN (hypertension): Qualified Code: I10 - Essential hypertension Mikel Swift DO Sep 02, 2016 16:17
[2016-09-02] MEDS: CALCIUM CARBONATE 500 MG CHEWABLE TAB PO PRN (18:40)
[2016-09-02] MEDS: TEMAZEPAM 15 MG CAP PO PRN (20:39)
[2016-09-02] MEDS: ATORVASTATIN 10 MG TAB PO SCH (20:40)
[2016-09-03] VITALS (9 sets, daily range): BP systolic 136–168; BP diastolic 70–103; PULSE 87–105; RESP 10–20; TEMP 96.6–98.7; O2SAT 96–100
[2016-09-03] MEDS: LORazepam 2 MG/ML VIAL IV PUSH PRN ×2 (00:43→11:55)
[2016-09-03] MEDS: HEPARIN SODIUM - SQ 10,000 UNITS/ML VIAL SQ SCH ×3 (02:31→21:07)
--- NOTE | 2016-09-03 08:16 | HM ---
Date Performed: 09/01/2016 Time Performed: 16:23:00 HOOKUP DATE: 09/01/16 04:23:00 PM Sat ANALYSIS START TIME: 09/01/2016 4:28:00 PM ANALYSIS END TIME: 09/02/2016 4:32:00 PM PATIENT AGE: 56 PATIENT HEIGHT: 66 PATIENT WEIGHT: 149 DRUG LIST PATIENT DIAGNOSIS: ACUTE CVA TEST NARRATIVE: The patient's average heart rate was 102 BPM. Heart rates greater than 120 BPM were noted 11% of the time. No episodes of bradycardia were noted. No pauses exceeding 2.0 s econds were noted. 4 ventricular ectopics, which represented < 1% of the total beat count, were n oted. The highest ventricular ectopic frequency occurred from 04:00 AM to 05:00 AM Sun. During this time 2 VE(s) occurred. Ventricular ectopics were observed as 2 isolated beat(s) and as 1 couplet(s) . No runs were noted. 3068 supraventricular ectopics, which represented 2% of the total beat cou nt, were noted. The highest supraventricular ectopic frequency occurred from 06:00 AM to 07:00 AM Mchugh n. During this time 355 SVE(s) occurred. No episodes of ST depression (defined as -1.0 mm or mor e) were noted in channel 1. No episodes of ST depression (defined as -1.0 mm or more) were noted in channel 2. No episodes of ST depression (defined as -1.0 mm or more) were noted in channel 3. TEST INTERPRETATION: Benign Holter monitor. Signed by : Nic Bartholomew
[2016-09-03] MEDS: DIPYRIDAMOLE/ASPIRIN 200 MG/25 MG CAP PO SCH ×2 (09:13→20:47)
[2016-09-03] MEDS: PANTOPRAZOLE SODIUM 40 MG VIAL IV PUSH SCH (09:14)
[2016-09-03] MEDS: SODIUM CHLORIDE 0.9% FLUSH 5 ML FLUSH IVF SCH ×2 (09:14→21:00)
[2016-09-03 11:00] LABS: RAPID PLASMA REAGIN SCREEN NON-REACTIVE (NON-REACTVE)
--- NOTE | 2016-09-03 11:02 | HHI.PR ---
Review/Management Diagnosis/Plan: (1) Acute ischemic left MCA stroke Plan: likely 2/2 atherosclerotic dz moderate to severe dyslipidemia recs motor a little better; reiterated to pt/spouse to keep working on the rt side tobacco cessation increase aggrenox to bid; d/c aspirin statin bp/lipid control rehab planning d/w medical (2) Acute CVA (cerebrovascular accident) (3) Tobacco abuse Subjective Subjective Comments No acute events reported No headache No chest pain No dyspnea Active Medications Current Medications Medications (Trade) Dose Ordered Sig/Ryan Route Start Time Stop Time Status Last Admin (Zofran Inj) 4 mg Q6H PRN IV 08/31/16 11:00 08/31/16 21:17 (NS Flush) 2 ml BID IVF 08/31/16 21:00 09/03/16 09:14 (NS Flush) 2 ml UNSCH PRN IVF 08/31/16 11:15 (Vasotec Inj) 1.25 mg Q4H PRN IV 08/31/16 11:15 (Heparin Inj) 5,000 units Q8H SQ 08/31/16 19:00 09/03/16 02:31 (Ativan Inj) 1 mg Q12H PRN IV PUSH 08/31/16 16:00 09/03/16 00:43 (Lipitor) 80 mg HS PO 09/01/16 21:00 09/02/16 20:40 (Protonix Inj) 40 mg DAILY IV PUSH 09/01/16 18:00 09/03/16 09:14 (Tums Chew) 500 mg Q2H PRN PO 09/01/16 18:00 09/02/16 18:40 (Restoril) 15 mg HS PRN PO 09/01/16 21:00 09/02/16 20:39 (Aggrenox 200-25 Mg) 1 cap BID PO 09/02/16 21:00 09/03/16 09:13 Allergies Allergies Coded Allergies No Known Allergies (Verified04/17/05) Review of Systems All other ROS: ROS reviewed as documented in chart Exam I&O / VS 09/02/16 09/02/16 09/03/16 14:59 22:59 06:59 Intake Total 1020 ml 240 ml Output Total 300 ml 300 ml Balance 720 ml -60 ml Intake Oral 1020 ml 240 ml Output Urine Total 300 ml 300 ml # Voids 3 Vital Signs Date Time Temp Pulse Resp B/P Pulse Ox O2 Delivery O2 Flow Rate FiO2 09/03/16 08:00 97.4 96 19 149/94 97 09/03/16 04:00 98.7 90 14 138/80 98 09/03/16 00:00 98.7 87 10 140/70 100 09/02/16 21:00 106 09/02/16 20:00 98.6 88 14 173/103 88 09/02/16 15:29 98.0 89 20 160/100 95 09/02/16 11:54 97.9 88 20 155/88 95 General: Alert and Oriented, No acute distress Respiratory: Non-labored respirations Neurologic: Alert Psychiatric: Cooperative Exam Comments follows, expressive aphasia, ou 3-2mm, rt facial weakness, rt hemiplegia 1-2/5 with increased tone, Patrick Martino MD Sep 03, 2016 11:02
[2016-09-03] MEDS ORDERED: AGGR20025 PO (11:32)
[2016-09-03] MEDS ORDERED: LIPI10TA PO (11:32)
--- NOTE | 2016-09-03 11:32 | HHI.DCPOC ---
Discharge Care Plan Diagnosis: (1) Acute ischemic left MCA stroke (2) Tobacco abuse (3) HTN (hypertension) Goals to Promote Your Health * To prevent worsening of your condition and complications * To maintain your health at the optimal level Directions to Meet Your Goals Take your medications as prescribed Follow your dietary instruction Follow activity as directed Keep your appointments as scheduled Take your immunizations and boosters as scheduled If your symptoms worsen call your PCP, if no PCP go to Urgent Care Center or Emergency Room Smoking is Dangerous to Your Health. Avoid second hand smoke Call the 24-hour hour crisis hotline for domestic abuse at Stevo Lin MD Sep 03, 2016 11:32
--- NOTE | 2016-09-03 11:36 | HHI.DS ---
Discharge Summary Admission Date Aug 31, 2016 at 10:49 Discharge Date: Sep 03, 2016 Admitting Diagnosis acute CVA (1) Acute CVA (cerebrovascular accident) Diagnosis: Principal (2) HTN (hypertension) Diagnosis: Secondary (3) Tobacco abuse Diagnosis: Secondary CBC/BMP: 08/31/16 0930 08/31/16 0930 Significant Findings Laboratory Tests Test 09/01/16 09/01/16 06:46 16:12 Triglycerides Level 238 MG/DL (42-150) Cholesterol Level 309 MG/DL (120-200) LDL Cholesterol 205 MG/DL (0-99) Folate 19.1 NG/ML (3.1-17.5) Ammonia 43 MCMOL/L (11-32) Hospital Course Pt presented with dysarthria, right facial droop and right arm and right leg paralysis. Pt seen by neurology. He had mri/a, cta brain and carotids. noted to have acute left mca distribution ischemic infarct of conklin radiata. old cva right bg. 40% right ICA stenosis and left ICA ulcerated plaque w/out stenosis. found to have dyslipidemia and htn. pt was started on aggrenox. asa stopped, high dose statin started. permissive htn and will resume bp med later this week at snf. mod diet and reevaluate today prior to d/c. PT/OT/ST at snf. discussed with and also neurology today. Pt Condition on Discharge: Stable Discharge Disposition: Discharge to SNF Discharge Instructions DIET: Follow Instructions for: Soft Diet Speech Therapy-Diet Recommends: Mechanical Soft, Chopped Meat w/Gravy Activities you can perform: Regular-No Restrictions Follow up Referrals: Neurology - 2 Weeks with Patrick Martino MD New Medications: Atorvastatin (Lipitor) 10 Mg Tab 80 MG PO HS cva #30 Ref 3 TAB Dipyridamole-Aspirin (Aggrenox) 200-25 Mg Cap 1 CAP PO BID cva #60 CAP Changed Medications: Lisinopril (Lisinopril) 5 Mg Tab 5 MG PO DAILY resume this drug 09/07 Blood Pressure Management #0 Ref 0 TAB ( Changed from: 30) Discontinued Medications: Aspirin (Aspirin) 325 Mg Tab 325 MG PO DAILY #30 Ref 0 TAB Stevo Lin MD Sep 03, 2016 11:36
[2016-09-03] MEDS ORDERED: cloNIDine HCL 0.1 MG TAB PO PRN (20:15)
[2016-09-03] MEDS: ATORVASTATIN 80 MG TAB PO SCH (21:07)
[2016-09-03] MEDS: TEMAZEPAM 15 MG CAP PO PRN (22:03)
[2016-09-04] VITALS (7 sets, daily range): BP systolic 129–158; BP diastolic 91–101; PULSE 83–124; RESP 18–21; TEMP 96.4–98.4; O2SAT 96–98
[2016-09-04] MEDS: LORazepam 2 MG/ML VIAL IV PUSH PRN ×2 (01:11→13:15)
[2016-09-04] MEDS: HEPARIN SODIUM - SQ 10,000 UNITS/ML VIAL SQ SCH ×3 (04:14→19:20)
[2016-09-04] MEDS: PANTOPRAZOLE SODIUM 40 MG VIAL IV PUSH SCH (07:40)
[2016-09-04] MEDS: DIPYRIDAMOLE/ASPIRIN 200 MG/25 MG CAP PO SCH ×2 (07:40→20:59)
[2016-09-04] MEDS: SODIUM CHLORIDE 0.9% FLUSH 5 ML FLUSH IVF SCH ×2 (07:41→20:59)
--- NOTE | 2016-09-04 10:38 | HHI.PR ---
Subjective Remarks doing ok. Objective Vitals heart reg lung cta abd s/nt ext no edema right facial droop right ue paralysis. right le weakness Vital Signs Date Time Temp Pulse Resp B/P Pulse Ox O2 Delivery O2 Flow Rate FiO2 09/04/16 08:00 98.0 97 20 158/101 96 09/04/16 04:00 97.2 87 18 129/95 97 09/03/16 23:20 96.6 105 16 165/98 96 09/03/16 20:39 97.8 89 18 136/92 96 09/03/16 20:00 103 09/03/16 19:10 90 09/03/16 16:00 96.6 91 20 153/103 97 09/03/16 12:00 96.6 104 20 168/101 97 09/03/16 09/03/16 09/04/16 15:00 23:00 07:00 Intake Total 240 ml 240 ml Output Total 250 ml 300 ml Balance -10 ml -60 ml Intake Oral 240 ml 240 ml Output Urine Total 250 ml 300 ml # Voids 2 # Bowel Movements 0 Result Diagram: 08/31/16 0930 08/31/16 0930 Imaging Last Impressions Neck Magnetic Resonance Angiography 08/31/16 1020 Signed Impressions: Service Date/Time: Wednesday, August 31, 2016 12:10 - CONCLUSION: 1. 40%% stenosis involving the proximal right ICA. Ulcerated plaque involving the left ICA without stenosis. Wiliam Santizo Jr., MD Head Magnetic Resonance Angiography 08/31/16 1020 Signed Impressions: Service Date/Time: Wednesday, August 31, 2016 12:10 - CONCLUSION: 1. Atherosclerotic plaque without hemodynamically significant stenosis observed. Wiliam Santizo Jr., MD Brain MRI 08/31/16 1020 Signed Impressions: Service Date/Time: Wednesday, August 31, 2016 12:10 - CONCLUSION: 1. Focal area of restricted diffusion involving the left conklin radiata consistent with small acute infarct in the left middle cerebral artery distribution. 2. Old lacunar infarcts within the right basal ganglia. 3. Minimal periventricular white matter small vessel ischemic changes bilaterally. 4. No acute hemorrhage, midline shift or extra-axial fluid collections. Dr. Virgen was called with the findings of the examination 12:55 PM on 08/31/16. Zheng Yan MD Head CT 08/31/16 0922 Signed Impressions: Service Date/Time: Wednesday, August 31, 2016 09:40 - CONCLUSION: 1. Old lacunar infarcts within the right basal ganglia. 2. No acute infarct, acute hemorrhage, mass effect or extra-axial fluid collections. Zheng Yan MD Chest X-Ray 08/31/16921 Signed Impressions: Service Date/Time: Wednesday, August 31, 2016 09:34 - CONCLUSION: 1. No acute cardiopulmonary findings. Adolph Pepe MD Neck CTA 08/31/16 Signed Impressions: Service Date/Time: Wednesday, August 31, 2016 20:47 - CONCLUSION: 1. Patent carotid arteries and vertebral arteries bilaterally. Wiliam Santizo Jr., MD Head CTA 08/31/16 Signed Impressions: Service Date/Time: Wednesday, August 31, 2016 20:47 - CONCLUSION: Mild atherosclerotic plaque without a hemodynamically significant stenosis. Wiliam Santizo Jr., MD A/P Problem List: (1) Acute CVA (cerebrovascular accident) Status: Acute Plan: acute left mca ischemic cva. persistent right facial droop and rue/rle weakness. - comgmt with Neurology - Neck MRA (08/31/16) 40% stenosis involving the proximal right ICA. Ulcerated plaque involving the left ICA without stenosis. - Head MRA (08/31/16) Atherosclerotic plaque without hemodynamically significant stenosis observed. - Head MRI (08/31/16) 1. Focal area of restricted diffusion involving the left conklin radiata consistent with small acute infarct in the left middle cerebral artery distribution. 2. Old lacunar infarcts within the right basal ganglia. 3. Minimal periventricular white matter small vessel ischemic changes bilaterally. 4. No acute hemorrhage, midline shift or extra-axial fluid collections - echocardiogram (08/31/16) --> EF 55-60% - aggrenox, lipitor. resume his scheduled bp meds in few days. prn control - physical therapy -d/c to snf (2) HTN (hypertension) Status: Acute Plan: slowly lower bp this week at snf. (3) Tobacco abuse Status: Acute Plan: - smoking cessation d/w pt Problem Qualifiers (1) HTN (hypertension): Qualified Code: I10 - Essential hypertension Stevo Lin MD Sep 04, 2016 10:38
[2016-09-04] MEDS: ATORVASTATIN 80 MG TAB PO SCH (20:59)
[2016-09-04] MEDS: TEMAZEPAM 15 MG CAP PO PRN (21:05)
[2016-09-05] VITALS (9 sets, daily range): BP systolic 100–172; BP diastolic 68–113; PULSE 72–108; RESP 18–20; TEMP 95.9–98.9; O2SAT 92–99
[2016-09-05] MEDS: CALCIUM CARBONATE 500 MG CHEWABLE TAB PO PRN (01:02)
[2016-09-05] MEDS: LORazepam 2 MG/ML VIAL IV PUSH PRN ×2 (01:02→13:41)
[2016-09-05] MEDS: HEPARIN SODIUM - SQ 10,000 UNITS/ML VIAL SQ SCH ×3 (02:08→17:17)
[2016-09-05] MEDS: SODIUM CHLORIDE 0.9% FLUSH 5 ML FLUSH IVF SCH ×2 (08:11→21:38)
[2016-09-05] MEDS: LISINOPRIL 5 MG TAB PO SCH (08:11)
[2016-09-05] MEDS: DIPYRIDAMOLE/ASPIRIN 200 MG/25 MG CAP PO SCH ×2 (08:11→21:38)
[2016-09-05] MEDS: PANTOPRAZOLE SODIUM 40 MG VIAL IV PUSH SCH (08:11)
--- NOTE | 2016-09-05 11:12 | HHI.PR ---
Subjective Remarks crying. upset over his situation. Objective Vitals right facial droop. right ue paralysis and rle weakness heart reg lung cta abd s/nt ext no edema Vital Signs Date Time Temp Pulse Resp B/P Pulse Ox O2 Delivery O2 Flow Rate FiO2 09/05/16 08:27 97.5 72 19 137/87 95 09/05/16 08:00 103 09/05/16 04:23 97.8 93 20 140/98 95 09/05/16 00:03 98.9 100 20 100/68 96 09/04/16 22:10 124 09/04/16 20:00 98.4 86 20 152/91 96 09/04/16 16:00 97.7 89 21 158/98 98 09/04/16 12:00 96.4 101 21 142/91 96 09/04/16 09/04/16 09/05/16 15:00 23:00 07:00 Intake Total 240 ml 120 ml Output Total 100 ml 250 ml Balance 140 ml -130 ml Intake Oral 240 ml 120 ml Output Urine Total 100 ml 250 ml # Voids 3 # Bowel Movements 0 Imaging Last Impressions Neck Magnetic Resonance Angiography 08/31/16 1020 Signed Impressions: Service Date/Time: Wednesday, August 31, 2016 12:10 - CONCLUSION: 1. 40%% stenosis involving the proximal right ICA. Ulcerated plaque involving the left ICA without stenosis. Wiliam Santizo Jr., MD Head Magnetic Resonance Angiography 08/31/16 1020 Signed Impressions: Service Date/Time: Wednesday, August 31, 2016 12:10 - CONCLUSION: 1. Atherosclerotic plaque without hemodynamically significant stenosis observed. Wiliam Santizo Jr., MD Brain MRI 08/31/16 1020 Signed Impressions: Service Date/Time: Wednesday, August 31, 2016 12:10 - CONCLUSION: 1. Focal area of restricted diffusion involving the left conklin radiata consistent with small acute infarct in the left middle cerebral artery distribution. 2. Old lacunar infarcts within the right basal ganglia. 3. Minimal periventricular white matter small vessel ischemic changes bilaterally. 4. No acute hemorrhage, midline shift or extra-axial fluid collections. Dr. Virgen was called with the findings of the examination 12:55 PM on 08/31/16. Zheng Yan MD Head CT 08/31/16 0922 Signed Impressions: Service Date/Time: Wednesday, August 31, 2016 09:40 - CONCLUSION: 1. Old lacunar infarcts within the right basal ganglia. 2. No acute infarct, acute hemorrhage, mass effect or extra-axial fluid collections. Zheng Yan MD Chest X-Ray 08/31/16 0922 Signed Impressions: Service Date/Time: Wednesday, August 31, 2016 09:34 - CONCLUSION: 1. No acute cardiopulmonary findings. Adolph Pepe MD Neck CTA 08/31/16 0000 Signed Impressions: Service Date/Time: Wednesday, August 31, 2016 20:47 - CONCLUSION: 1. Patent carotid arteries and vertebral arteries bilaterally. Wiliam Santizo Jr., MD Head CTA 08/31/16 0000 Signed Impressions: Service Date/Time: Wednesday, August 31, 2016 20:47 - CONCLUSION: Mild atherosclerotic plaque without a hemodynamically significant stenosis. Wiliam Santizo Jr., MD A/P Problem List: (1) Acute CVA (cerebrovascular accident) Status: Acute Plan: acute left mca ischemic cva. persistent right facial droop and rue/rle weakness. - comgmt with Neurology - Neck MRA (08/31/16) 40% stenosis involving the proximal right ICA. Ulcerated plaque involving the left ICA without stenosis. - Head MRA (08/31/16) Atherosclerotic plaque without hemodynamically significant stenosis observed. - Head MRI (08/31/16) 1. Focal area of restricted diffusion involving the left conklin radiata consistent with small acute infarct in the left middle cerebral artery distribution. 2. Old lacunar infarcts within the right basal ganglia. 3. Minimal periventricular white matter small vessel ischemic changes bilaterally. 4. No acute hemorrhage, midline shift or extra-axial fluid collections - echocardiogram (08/31/16) --> EF 55-60% - aggrenox, lipitor. resume his dereck - physical therapy - Pt lost his fhcp...awaiting lanie placement in snf (2) HTN (hypertension) Status: Acute Plan: slowly lower bp this week at snf. (3) Tobacco abuse Status: Acute Plan: - smoking cessation d/w pt Problem Qualifiers (1) HTN (hypertension): Qualified Code: I10 - Essential hypertension Stevo Lin MD Sep 05, 2016 11:12
[2016-09-05] MEDS ORDERED: ACETAMINOPHEN 1000 MG/100 ML VIAL IV ONE (11:15)
[2016-09-05] MEDS: ACETAMINOPHEN 325 MG TAB PO PRN ×2 (17:23→21:39)
[2016-09-05] MEDS: ATORVASTATIN 80 MG TAB PO SCH (21:38)
[2016-09-05] MEDS: TEMAZEPAM 15 MG CAP PO PRN (21:38)
[2016-09-06] VITALS (8 sets, daily range): BP systolic 112–152; BP diastolic 73–88; PULSE 85–98; RESP 17–19; TEMP 96.4–97.9; O2SAT 94–99
[2016-09-06] MEDS: LORazepam 2 MG/ML VIAL IV PUSH PRN ×2 (01:47→13:11)
[2016-09-06] MEDS: HEPARIN SODIUM - SQ 10,000 UNITS/ML VIAL SQ SCH ×3 (01:47→17:23)
[2016-09-06] MEDS: ACETAMINOPHEN 325 MG TAB PO PRN ×4 (04:25→21:37)
[2016-09-06] MEDS: LISINOPRIL 5 MG TAB PO SCH (08:20)
[2016-09-06] MEDS: PANTOPRAZOLE SODIUM 40 MG VIAL IV PUSH SCH (08:20)
[2016-09-06] MEDS: DIPYRIDAMOLE/ASPIRIN 200 MG/25 MG CAP PO SCH ×2 (08:20→20:05)
[2016-09-06] MEDS: SODIUM CHLORIDE 0.9% FLUSH 5 ML FLUSH IVF SCH ×2 (08:20→20:06)
--- NOTE | 2016-09-06 11:31 | HHI.PR ---
Subjective Remarks doing ok. son present Objective Vitals heart reg lung cta abd s/nt ext no edema right facial droop/rue paralysis/rle weak. Vital Signs Date Time Temp Pulse Resp B/P Pulse Ox O2 Delivery O2 Flow Rate FiO2 09/06/16 08:00 97.4 88 19 133/79 96 09/06/16 04:06 97.9 92 17 139/79 97 09/06/16 00:03 96.8 90 18 114/75 94 09/05/16 20:19 97.2 108 19 137/79 97 09/05/16 20:00 96 09/05/16 16:59 95.9 90 18 172/113 92 09/05/16 15:53 97.7 80 18 119/68 99 09/05/16 12:03 97.1 96 18 144/81 96 09/05/16 09/05/16 09/06/16 14:59 22:59 06:59 Intake Total 600 ml Output Total 650 ml Balance -50 ml Intake Oral 600 ml Output Urine Total 650 ml # Voids 1 Imaging Last Impressions Neck Magnetic Resonance Angiography 08/31/16 1020 Signed Impressions: Service Date/Time: Wednesday, August 31, 2016 12:10 - CONCLUSION: 1. 40%% stenosis involving the proximal right ICA. Ulcerated plaque involving the left ICA without stenosis. Wiliam Santizo Jr., MD Head Magnetic Resonance Angiography 08/31/16 1020 Signed Impressions: Service Date/Time: Wednesday, August 31, 2016 12:10 - CONCLUSION: 1. Atherosclerotic plaque without hemodynamically significant stenosis observed. Wiliam Santizo Jr., MD Brain MRI 08/31/16 1020 Signed Impressions: Service Date/Time: Wednesday, August 31, 2016 12:10 - CONCLUSION: 1. Focal area of restricted diffusion involving the left conklin radiata consistent with small acute infarct in the left middle cerebral artery distribution. 2. Old lacunar infarcts within the right basal ganglia. 3. Minimal periventricular white matter small vessel ischemic changes bilaterally. 4. No acute hemorrhage, midline shift or extra-axial fluid collections. Dr. Virgen was called with the findings of the examination 12:55 PM on 08/31/16. Zheng Yan MD Head CT 08/31/16 0922 Signed Impressions: Service Date/Time: Wednesday, August 31, 2016 09:40 - CONCLUSION: 1. Old lacunar infarcts within the right basal ganglia. 2. No acute infarct, acute hemorrhage, mass effect or extra-axial fluid collections. Zheng Yan MD Chest X-Ray 08/31/16 09 Signed Impressions: Service Date/Time: Wednesday, August 31, 2016 09:34 - CONCLUSION: 1. No acute cardiopulmonary findings. Adolph Pepe MD Neck CTA 08/31/16 0000 Signed Impressions: Service Date/Time: Wednesday, August 31, 2016 20:47 - CONCLUSION: 1. Patent carotid arteries and vertebral arteries bilaterally. Wiliam Santizo Jr., MD Head CTA 08/31/16 0000 Signed Impressions: Service Date/Time: Wednesday, August 31, 2016 20:47 - CONCLUSION: Mild atherosclerotic plaque without a hemodynamically significant stenosis. Wiliam Santizo Jr., MD A/P Problem List: (1) Acute CVA (cerebrovascular accident) Status: Acute Plan: acute left mca ischemic cva. persistent right facial droop and rue/rle weakness. - comgmt with Neurology - Neck MRA (08/31/16) 40% stenosis involving the proximal right ICA. Ulcerated plaque involving the left ICA without stenosis. - Head MRA (08/31/16) Atherosclerotic plaque without hemodynamically significant stenosis observed. - Head MRI (08/31/16) 1. Focal area of restricted diffusion involving the left conklin radiata consistent with small acute infarct in the left middle cerebral artery distribution. 2. Old lacunar infarcts within the right basal ganglia. 3. Minimal periventricular white matter small vessel ischemic changes bilaterally. 4. No acute hemorrhage, midline shift or extra-axial fluid collections - echocardiogram (08/31/16) --> EF 55-60% - aggrenox, lipitor. resume his dereck - physical therapy - Pt lost his fhcp...awaiting lanie placement ...hopefully [facility] soon. (2) HTN (hypertension) Status: Acute Plan: cont dereck and prn (3) Tobacco abuse Status: Acute Plan: - smoking cessation d/w pt Problem Qualifiers (1) HTN (hypertension): Qualified Code: I10 - Essential hypertension Stevo Lin MD Sep 06, 2016 11:31
[2016-09-06] MEDS: ATORVASTATIN 80 MG TAB PO SCH (20:05)
[2016-09-06] MEDS: TEMAZEPAM 15 MG CAP PO PRN (23:13)
[2016-09-07] VITALS (8 sets, daily range): BP systolic 128–193; BP diastolic 79–91; PULSE 72–107; RESP 16–20; TEMP 97–98.1; O2SAT 95–99
[2016-09-07] MEDS: LORazepam 2 MG/ML VIAL IV PUSH PRN ×2 (01:19→13:13)
[2016-09-07] MEDS: HEPARIN SODIUM - SQ 10,000 UNITS/ML VIAL SQ SCH ×3 (03:50→17:24)
[2016-09-07] MEDS: ACETAMINOPHEN 325 MG TAB PO PRN ×5 (03:51→21:10)
[2016-09-07] MEDS: LISINOPRIL 5 MG TAB PO SCH (08:14)
[2016-09-07] MEDS: DIPYRIDAMOLE/ASPIRIN 200 MG/25 MG CAP PO SCH ×2 (08:14→21:09)
[2016-09-07] MEDS: PANTOPRAZOLE SODIUM 40 MG VIAL IV PUSH SCH (08:15)
[2016-09-07] MEDS: SODIUM CHLORIDE 0.9% FLUSH 5 ML FLUSH IVF SCH ×2 (08:15→21:09)
--- NOTE | 2016-09-07 10:01 | HHI.PR ---
Subjective Remarks sitting in chair. seems happier today and positive. present. Objective Vitals heart reg lung cta abd s/nt ext no edema Vital Signs Date Time Temp Pulse Resp B/P Pulse Ox O2 Delivery O2 Flow Rate FiO2 09/07/16 08:00 97.5 91 16 148/90 95 09/07/16 08:00 82 09/07/16 04:30 97.0 82 20 137/88 96 09/07/16 00:11 97.8 88 18 130/79 98 09/06/16 20:21 96.9 98 18 152/88 99 09/06/16 20:00 91 09/06/16 16:00 97.0 87 19 112/73 96 09/06/16 12:13 85 09/06/16 10:54 96.4 87 17 119/80 97 09/06/16 09/06/16 09/07/16 14:59 22:59 06:59 Intake Total 480 ml Output Total 550 ml Balance 480 ml -550 ml Intake Oral 480 ml Output Urine Total 550 ml # Bowel Movements 2 Imaging Last Impressions Neck Magnetic Resonance Angiography 08/31/16 1020 Signed Impressions: Service Date/Time: Wednesday, August 31, 2016 12:10 - CONCLUSION: 1. 40%% stenosis involving the proximal right ICA. Ulcerated plaque involving the left ICA without stenosis. Wiliam Santizo Jr., MD Head Magnetic Resonance Angiography 08/31/16 1020 Signed Impressions: Service Date/Time: Wednesday, August 31, 2016 12:10 - CONCLUSION: 1. Atherosclerotic plaque without hemodynamically significant stenosis observed. Wiliam Santizo Jr., MD Brain MRI 08/31/16 1020 Signed Impressions: Service Date/Time: Wednesday, August 31, 2016 12:10 - CONCLUSION: 1. Focal area of restricted diffusion involving the left conklin radiata consistent with small acute infarct in the left middle cerebral artery distribution. 2. Old lacunar infarcts within the right basal ganglia. 3. Minimal periventricular white matter small vessel ischemic changes bilaterally. 4. No acute hemorrhage, midline shift or extra-axial fluid collections. Dr. Virgen was called with the findings of the examination 12:55 PM on 08/31/16. Zheng Yan MD Head CT 08/31/16 0922 Signed Impressions: Service Date/Time: Wednesday, August 31, 2016 09:40 - CONCLUSION: 1. Old lacunar infarcts within the right basal ganglia. 2. No acute infarct, acute hemorrhage, mass effect or extra-axial fluid collections. Zheng Yan MD Chest X-Ray 08/31/1622 Signed Impressions: Service Date/Time: Wednesday, August 31, 2016 09:34 - CONCLUSION: 1. No acute cardiopulmonary findings. Adolph Pepe MD Neck CTA 08/31/16 0000 Signed Impressions: Service Date/Time: Wednesday, August 31, 2016 20:47 - CONCLUSION: 1. Patent carotid arteries and vertebral arteries bilaterally. Wiliam Santizo Jr., MD Head CTA 08/31/16 0000 Signed Impressions: Service Date/Time: Wednesday, August 31, 2016 20:47 - CONCLUSION: Mild atherosclerotic plaque without a hemodynamically significant stenosis. Wiliam Santizo Jr., MD A/P Problem List: (1) Acute CVA (cerebrovascular accident) Status: Acute Plan: acute left mca ischemic cva. persistent right facial droop and rue/rle weakness. - comgmt with Neurology - Neck MRA (08/31/16) 40% stenosis involving the proximal right ICA. Ulcerated plaque involving the left ICA without stenosis. - Head MRA (08/31/16) Atherosclerotic plaque without hemodynamically significant stenosis observed. - Head MRI (08/31/16) 1. Focal area of restricted diffusion involving the left conklin radiata consistent with small acute infarct in the left middle cerebral artery distribution. 2. Old lacunar infarcts within the right basal ganglia. 3. Minimal periventricular white matter small vessel ischemic changes bilaterally. 4. No acute hemorrhage, midline shift or extra-axial fluid collections - echocardiogram (08/31/16) --> EF 55-60% - aggrenox, lipitor. dereck -PT/OT/ST - Pt lost his fhcp...awaiting lanie placement ...hopefully [facility] soon. Decision to be made 09/09/16 (2) HTN (hypertension) Status: Acute Plan: cont dereck and prn (3) Tobacco abuse Status: Acute Plan: - smoking cessation d/w pt Problem Qualifiers (1) HTN (hypertension): Qualified Code: I10 - Essential hypertension Stevo Lin MD Sep 07, 2016 10:00
[2016-09-07] MEDS: ATORVASTATIN 80 MG TAB PO SCH ×2 (21:00→23:54)
[2016-09-07] MEDS: TEMAZEPAM 15 MG CAP PO PRN (21:10)
[2016-09-08] VITALS (8 sets, daily range): BP systolic 125–139; BP diastolic 72–94; PULSE 90–104; RESP 18–20; TEMP 97.2–99; O2SAT 95–97
[2016-09-08] MEDS: ACETAMINOPHEN 325 MG TAB PO PRN ×4 (01:43→18:19)
[2016-09-08] MEDS: HEPARIN SODIUM - SQ 10,000 UNITS/ML VIAL SQ SCH ×3 (01:44→18:18)
[2016-09-08] MEDS: LORazepam 2 MG/ML VIAL IV PUSH PRN ×2 (01:44→14:06)
[2016-09-08] MEDS: PANTOPRAZOLE SODIUM 40 MG VIAL IV PUSH SCH (09:32)
[2016-09-08] MEDS: DIPYRIDAMOLE/ASPIRIN 200 MG/25 MG CAP PO SCH ×2 (09:32→21:16)
[2016-09-08] MEDS: LISINOPRIL 5 MG TAB PO SCH (09:32)
[2016-09-08] MEDS: SODIUM CHLORIDE 0.9% FLUSH 5 ML FLUSH IVF SCH ×2 (09:32→21:16)
--- NOTE | 2016-09-08 09:37 | HHI.PR ---
Subjective Remarks no new complaints Objective Vitals heart reg lung cta abd s/nt ext right facial droop/rue paralysis and rleg weakness Vital Signs Date Time Temp Pulse Resp B/P Pulse Ox O2 Delivery O2 Flow Rate FiO2 09/08/16 04:00 97.2 98 20 125/80 96 09/08/16 00:25 98.2 95 20 139/85 95 09/07/16 20:27 98.1 91 18 128/84 99 09/07/16 19:50 107 09/07/16 16:00 97.9 100 16 129/84 97 09/07/16 12:00 98.0 78 16 143/91 97 09/07/16 09/07/16 09/08/16 15:00 23:00 07:00 Intake Total 240 ml Output Total 100 ml 650 ml Balance 140 ml -650 ml Intake Oral 240 ml Output Urine Total 100 ml 650 ml # Bowel Movements 1 Imaging Last Impressions Neck Magnetic Resonance Angiography 08/31/16 1020 Signed Impressions: Service Date/Time: Wednesday, August 31, 2016 12:10 - CONCLUSION: 1. 40%% stenosis involving the proximal right ICA. Ulcerated plaque involving the left ICA without stenosis. Wiliam Santizo Jr., MD Head Magnetic Resonance Angiography 08/31/16 1020 Signed Impressions: Service Date/Time: Wednesday, August 31, 2016 12:10 - CONCLUSION: 1. Atherosclerotic plaque without hemodynamically significant stenosis observed. Wiliam Santizo Jr., MD Brain MRI 08/31/16 1020 Signed Impressions: Service Date/Time: Wednesday, August 31, 2016 12:10 - CONCLUSION: 1. Focal area of restricted diffusion involving the left conklin radiata consistent with small acute infarct in the left middle cerebral artery distribution. 2. Old lacunar infarcts within the right basal ganglia. 3. Minimal periventricular white matter small vessel ischemic changes bilaterally. 4. No acute hemorrhage, midline shift or extra-axial fluid collections. Dr. Virgen was called with the findings of the examination 12:55 PM on 08/31/16. Zheng Yan MD Head CT 08/31/16 0922 Signed Impressions: Service Date/Time: Wednesday, August 31, 2016 09:40 - CONCLUSION: 1. Old lacunar infarcts within the right basal ganglia. 2. No acute infarct, acute hemorrhage, mass effect or extra-axial fluid collections. Zheng Yan MD Chest X-Ray 08/31/16 0922 Signed Impressions: Service Date/Time: Wednesday, August 31, 2016 09:34 - CONCLUSION: 1. No acute cardiopulmonary findings. Adolph Pepe MD Neck CTA 08/31/16 0000 Signed Impressions: Service Date/Time: Wednesday, August 31, 2016 20:47 - CONCLUSION: 1. Patent carotid arteries and vertebral arteries bilaterally. Wiliam Santizo Jr., MD Head CTA 08/31/16 0000 Signed Impressions: Service Date/Time: Wednesday, August 31, 2016 20:47 - CONCLUSION: Mild atherosclerotic plaque without a hemodynamically significant stenosis. Wiliam Santizo Jr., MD A/P Problem List: (1) Acute CVA (cerebrovascular accident) Status: Acute Plan: acute left mca ischemic cva. persistent right facial droop and rue/rle weakness. - comgmt with Neurology - Neck MRA (08/31/16) 40% stenosis involving the proximal right ICA. Ulcerated plaque involving the left ICA without stenosis. - Head MRA (08/31/16) Atherosclerotic plaque without hemodynamically significant stenosis observed. - Head MRI (08/31/16) 1. Focal area of restricted diffusion involving the left conklin radiata consistent with small acute infarct in the left middle cerebral artery distribution. 2. Old lacunar infarcts within the right basal ganglia. 3. Minimal periventricular white matter small vessel ischemic changes bilaterally. 4. No acute hemorrhage, midline shift or extra-axial fluid collections - echocardiogram (08/31/16) --> EF 55-60% - aggrenox, lipitor. dereck -PT/OT/ST - Pt lost his fhcp...Pt has had d/c orders all week....awaiting lanie placement ...hopefully [facility] soon. Decision to be made 09/09/16 (2) HTN (hypertension) Status: Acute Plan: cont dereck and prn (3) Tobacco abuse Status: Acute Plan: - smoking cessation d/w pt Problem Qualifiers (1) HTN (hypertension): Qualified Code: I10 - Essential hypertension Stevo Lin MD Sep 08, 2016 09:37
[2016-09-08] MEDS: ATORVASTATIN 80 MG TAB PO SCH (21:16)
[2016-09-08] MEDS: TEMAZEPAM 15 MG CAP PO PRN (21:16)
[2016-09-09] MEDS: HEPARIN SODIUM - SQ 10,000 UNITS/ML VIAL SQ SCH ×3 (02:07→19:30)
[2016-09-09] MEDS: LORazepam 2 MG/ML VIAL IV PUSH PRN ×2 (02:08→15:19)
[2016-09-09 04:59] VITALS: BP 119/84; PULSE 102; RESP 19; TEMP 97.9; O2SAT 93
[2016-09-09] MEDS: ACETAMINOPHEN 325 MG TAB PO PRN ×3 (05:45→22:30)
[2016-09-09 07:00] VITALS: PULSE 100
[2016-09-09 08:34] VITALS: BP 124/86; PULSE 86; RESP 20; TEMP 96.8; O2SAT 95
[2016-09-09] MEDS: SODIUM CHLORIDE 0.9% FLUSH 5 ML FLUSH IVF SCH ×2 (09:00→20:56)
--- NOTE | 2016-09-09 09:36 | HHI.PR ---
Subjective Remarks more verbal today. in chair playing with ipad. seems happier and present Objective Vitals smiling. playing with ipad. lue right facial droop. rue paralysis and rle weakness abd s/nt ext no edema Vital Signs Date Time Temp Pulse Resp B/P Pulse Ox O2 Delivery O2 Flow Rate FiO2 09/09/16 08:34 96.8 86 20 124/86 95 09/09/16 07:00 100 09/09/16 04:59 97.9 102 19 119/84 93 09/08/16 23:45 99.0 102 18 125/72 97 09/08/16 20:46 98.0 90 19 132/80 95 09/08/16 20:00 96 09/08/16 19:19 18 09/08/16 16:00 97.5 101 18 137/94 96 09/08/16 12:00 98.0 104 18 129/85 97 09/08/16 09/08/16 09/09/16 15:00 23:00 07:00 Intake Total 120 ml Output Total 200 ml Balance -80 ml Intake Oral 120 ml Output Urine Total 200 ml # Voids 1 # Bowel Movements 1 Imaging Last Impressions Neck Magnetic Resonance Angiography 08/31/16 1020 Signed Impressions: Service Date/Time: Wednesday, August 31, 2016 12:10 - CONCLUSION: 1. 40%% stenosis involving the proximal right ICA. Ulcerated plaque involving the left ICA without stenosis. Wiliam Santizo Jr., MD Head Magnetic Resonance Angiography 08/31/16 1020 Signed Impressions: Service Date/Time: Wednesday, August 31, 2016 12:10 - CONCLUSION: 1. Atherosclerotic plaque without hemodynamically significant stenosis observed. Wiliam Santizo Jr., MD Brain MRI 08/31/16 1020 Signed Impressions: Service Date/Time: Wednesday, August 31, 2016 12:10 - CONCLUSION: 1. Focal area of restricted diffusion involving the left conklin radiata consistent with small acute infarct in the left middle cerebral artery distribution. 2. Old lacunar infarcts within the right basal ganglia. 3. Minimal periventricular white matter small vessel ischemic changes bilaterally. 4. No acute hemorrhage, midline shift or extra-axial fluid collections. Dr. Virgen was called with the findings of the examination 12:55 PM on 08/31/16. Zheng Yan MD Head CT 12/921 Signed Impressions: Service Date/Time: Wednesday, August 31, 2016 09:40 - CONCLUSION: 1. Old lacunar infarcts within the right basal ganglia. 2. No acute infarct, acute hemorrhage, mass effect or extra-axial fluid collections. Zheng Yan MD Chest X-Ray 08/31/16921 Signed Impressions: Service Date/Time: Wednesday, August 31, 2016 09:34 - CONCLUSION: 1. No acute cardiopulmonary findings. Adolph Pepe MD Neck CTA 08/31/16 0000 Signed Impressions: Service Date/Time: Wednesday, August 31, 2016 20:47 - CONCLUSION: 1. Patent carotid arteries and vertebral arteries bilaterally. Wiliam Santizo Jr., MD Head CTA 08/31/16 0000 Signed Impressions: Service Date/Time: Wednesday, August 31, 2016 20:47 - CONCLUSION: Mild atherosclerotic plaque without a hemodynamically significant stenosis. Wiliam Santizo Jr., MD A/P Problem List: (1) Acute CVA (cerebrovascular accident) Status: Acute Plan: -acute left mca ischemic cva. persistent right facial droop and rue/rle weakness. - Neck MRA (08/31/16) 40% stenosis involving the proximal right ICA. Ulcerated plaque involving the left ICA without stenosis. - Head MRA (08/31/16) Atherosclerotic plaque without hemodynamically significant stenosis observed. - Head MRI (08/31/16) 1. Focal area of restricted diffusion involving the left conklin radiata consistent with small acute infarct in the left middle cerebral artery distribution. 2. Old lacunar infarcts within the right basal ganglia. 3. Minimal periventricular white matter small vessel ischemic changes bilaterally. 4. No acute hemorrhage, midline shift or extra-axial fluid collections - echocardiogram (08/31/16) --> EF 55-60% - aggrenox, lipitor. dereck -PT/OT/ST - Pt lost his fhcp...Pt has had d/c orders all week....awaiting lanie placement ...hopefully [facility] soon. Decision to be made 09/10/16 (2) HTN (hypertension) Status: Acute Plan: cont dereck and prn (3) Tobacco abuse Status: Acute Plan: - smoking cessation d/w pt Problem Qualifiers (1) HTN (hypertension): Qualified Code: I10 - Essential hypertension Stevo Lin MD Sep 09, 2016 09:36
[2016-09-09] MEDS: PANTOPRAZOLE SODIUM 40 MG VIAL IV PUSH SCH (09:50)
[2016-09-09] MEDS: LISINOPRIL 5 MG TAB PO SCH (09:51)
[2016-09-09] MEDS: DIPYRIDAMOLE/ASPIRIN 200 MG/25 MG CAP PO SCH ×2 (09:51→20:56)
[2016-09-09 12:00] VITALS: BP 109/76; PULSE 86; RESP 20; TEMP 98.1; O2SAT 97
[2016-09-09 16:00] VITALS: BP 130/81; PULSE 89; RESP 20; TEMP 97.2; O2SAT 97
[2016-09-09 20:30] VITALS: BP 114/77; PULSE 86; RESP 16; TEMP 98.4; O2SAT 96
[2016-09-09] MEDS: ATORVASTATIN 80 MG TAB PO SCH (20:55)
[2016-09-09] MEDS: TEMAZEPAM 15 MG CAP PO PRN (22:25)
[2016-09-10] VITALS: BP 102/67; PULSE 90; RESP 16; TEMP 97.1; O2SAT 96
[2016-09-10] MEDS: HEPARIN SODIUM - SQ 10,000 UNITS/ML VIAL SQ SCH ×2 (03:51→11:37)
[2016-09-10] MEDS: LORazepam 2 MG/ML VIAL IV PUSH PRN (03:51)
[2016-09-10 05:13] VITALS: BP 130/87; PULSE 90; RESP 18; TEMP 97.1; O2SAT 94
[2016-09-10 08:00] VITALS: BP 176/100; PULSE 73; RESP 18; TEMP 97; O2SAT 100
[2016-09-10] MEDS: PANTOPRAZOLE SODIUM 40 MG VIAL IV PUSH SCH ×2 (09:00→09:09)
[2016-09-10] MEDS: SODIUM CHLORIDE 0.9% FLUSH 5 ML FLUSH IVF SCH ×2 (09:00→09:09)
[2016-09-10] MEDS: DIPYRIDAMOLE/ASPIRIN 200 MG/25 MG CAP PO SCH (09:08)
[2016-09-10] MEDS: LISINOPRIL 5 MG TAB PO SCH (09:09)
--- NOTE | 2016-09-10 11:18 | HHI.DS ---
Discharge Summary Admission Date Aug 31, 2016 at 10:49 Discharge Date: Sep 10, 2016 Admitting Diagnosis acute CVA (1) Acute CVA (cerebrovascular accident) Diagnosis: Principal (2) HTN (hypertension) Diagnosis: Principal (3) Tobacco abuse Diagnosis: Principal Consultants Dr. Patrick Rolle, Neurology Procedures Echocardiogram 08/31/16 --> EF 55-60% Holter (09/01/16) --> benign Brief History 56-year-old male with a history of prior CVA 04/2016 was brought to the ED by EMS for evaluation of aphasia and right-sided weakness. The patient and , around 8 AM this morning as patient's walked about from work his balance and upon himself referral for at least 10 minutes however was able to get up and get back to his room where his immediately called EMS due to slurred speech him and right-sided weakness. Patient reports feeling well prior to going to bed last night. Otherwise he has no chest pain, shortness of breath. Imaging Last Impressions Neck Magnetic Resonance Angiography 08/31/16 1020 Signed Impressions: Service Date/Time: Wednesday, August 31, 2016 12:10 - CONCLUSION: 1. 40%% stenosis involving the proximal right ICA. Ulcerated plaque involving the left ICA without stenosis. Wiliam Santizo Jr., MD Head Magnetic Resonance Angiography 08/31/16 1020 Signed Impressions: Service Date/Time: Wednesday, August 31, 2016 12:10 - CONCLUSION: 1. Atherosclerotic plaque without hemodynamically significant stenosis observed. Wiliam Santizo Jr., MD Brain MRI 08/31/16 1020 Signed Impressions: Service Date/Time: Wednesday, August 31, 2016 12:10 - CONCLUSION: 1. Focal area of restricted diffusion involving the left conklin radiata consistent with small acute infarct in the left middle cerebral artery distribution. 2. Old lacunar infarcts within the right basal ganglia. 3. Minimal periventricular white matter small vessel ischemic changes bilaterally. 4. No acute hemorrhage, midline shift or extra-axial fluid collections. Dr. Virgen was called with the findings of the examination 12:55 PM on 08/31/16. Zheng Yan MD Head CT 08/31/16 0922 Signed Impressions: Service Date/Time: Wednesday, August 31, 2016 09:40 - CONCLUSION: 1. Old lacunar infarcts within the right basal ganglia. 2. No acute infarct, acute hemorrhage, mass effect or extra-axial fluid collections. Zheng Yan MD Chest X-Ray 08/31/16 0922 Signed Impressions: Service Date/Time: Wednesday, August 31, 2016 09:34 - CONCLUSION: 1. No acute cardiopulmonary findings. Adolph Pepe MD Neck CTA 08/31/16 0000 Signed Impressions: Service Date/Time: Wednesday, August 31, 2016 20:47 - CONCLUSION: 1. Patent carotid arteries and vertebral arteries bilaterally. Wiliam Santizo Jr., MD Head CTA 08/31/16 0000 Signed Impressions: Service Date/Time: Wednesday, August 31, 2016 20:47 - CONCLUSION: Mild atherosclerotic plaque without a hemodynamically significant stenosis. Wiliam Santizo Jr., MD PE at Discharge GENERAL: This is a well-nourished, well-developed patient, in no apparent distress. CARDIOVASCULAR: Regular rate and rhythm without murmurs, gallops, or rubs. RESPIRATORY: Clear to auscultation. Breath sounds equal bilaterally. No wheezes , rales, or rhonchi. GASTROINTESTINAL: Abdomen soft, non-tender, nondistended. Normal active bowel sounds MUSCULOSKELETAL: Extremities without clubbing, cyanosis, or edema. NEURO: Alert & Oriented x3, right side is flaccid, right facial droop. Hospital Course (1) Acute CVA (cerebrovascular accident) Status: Acute Plan: -acute left mca ischemic cva. persistent right facial droop and rue/rle weakness. - Neck MRA (08/31/16) 40% stenosis involving the proximal right ICA. Ulcerated plaque involving the left ICA without stenosis. - Head MRA (08/31/16) Atherosclerotic plaque without hemodynamically significant stenosis observed. - Head MRI (08/31/16) 1. Focal area of restricted diffusion involving the left conklin radiata consistent with small acute infarct in the left middle cerebral artery distribution. 2. Old lacunar infarcts within the right basal ganglia. 3. Minimal periventricular white matter small vessel ischemic changes bilaterally. 4. No acute hemorrhage, midline shift or extra-axial fluid collections - echocardiogram (08/31/16) --> EF 55-60% - aggrenox, lipitor. dereck -PT/OT/ST - Pt initially discharged by Dr. Lin 09/03/16, but there were placement issues - [facility] - see discharge orders (2) HTN (hypertension) Status: Acute Plan: cont dereck and prn (3) Tobacco abuse Status: Acute Plan: - smoking cessation d/w pt Pt Condition on Discharge: Stable Discharge Disposition: Rehab Inpatient Discharge Instructions DIET: Follow Instructions for: Soft Diet Speech Therapy-Diet Recommends: Mechanical Soft, Chopped Meat w/Gravy Additional Diet Instructions: nectar thick liquid Activities you can perform: Regular-No Restrictions Follow up Referrals: Neurology - 2 Weeks with Patrick Martino MD New Medications: Atorvastatin (Lipitor) 10 Mg Tab 80 MG PO HS cva #30 Ref 3 TAB Dipyridamole-Aspirin (Aggrenox) 200-25 Mg Cap 1 CAP PO BID cva #60 CAP Continued Medications: Lisinopril (Lisinopril) 5 Mg Tab 5 MG PO DAILY Blood Pressure Management #30 Ref 0 TAB Discontinued Medications: Aspirin (Aspirin) 325 Mg Tab 325 MG PO DAILY #30 Ref 0 TAB Mikel Swift DO Sep 10, 2016 11:18
--- NOTE | 2016-09-10 11:22 | HHI.DCPOC ---
Discharge Care Plan Diagnosis: (1) Tobacco abuse (2) HTN (hypertension) (3) Acute ischemic left MCA stroke Goals to Promote Your Health * To prevent worsening of your condition and complications * To maintain your health at the optimal level Directions to Meet Your Goals Take your medications as prescribed Follow your dietary instruction Follow activity as directed Keep your appointments as scheduled Take your immunizations and boosters as scheduled If your symptoms worsen call your PCP, if no PCP go to Urgent Care Center or Emergency Room Smoking is Dangerous to Your Health. Avoid second hand smoke Call the 24-hour hour crisis hotline for domestic abuse at Mikel Swift DO Sep 10, 2016 11:22
[2016-09-10 11:58] VITALS: PULSE 95
[2016-09-10 12:28] VITALS: BP 124/85; PULSE 106; RESP 18; TEMP 98.6; O2SAT 94
[2016-09-24] MEDS ORDERED: AGGR20025 PO (12:25)
[2016-09-24] MEDS ORDERED: LIDO5DIS35 TD (12:25)
[2016-09-24] MEDS ORDERED: FAMO20TA2 PO (12:25)
[2016-09-24] MEDS ORDERED: PREPOIN RECTAL (12:25)
[2016-09-24] MEDS ORDERED: LISI-519 PO (12:25)
[2016-09-24] MEDS ORDERED: BACL10TA PO (12:25)
[2016-09-24] MEDS ORDERED: LIPI10TA PO (12:25)
[2016-09-24] MEDS ORDERED: HYDR-3516 PO (14:48)
[2016-09-24] MEDS ORDERED: REST15CA PO (14:48)
[2016-10-03] MEDS ORDERED: LIPI10TA PO (10:18)
[2016-10-03] MEDS ORDERED: BACL10TA PO (10:18)
[2016-10-03] MEDS ORDERED: PREPOIN RECTAL (10:18)
[2016-10-03] MEDS ORDERED: LIDO5DIS35 TD (10:18)
[2016-10-03] MEDS ORDERED: LISI-519 PO (10:18)
[2016-10-03] MEDS ORDERED: AGGR20025 PO (10:18)
[2016-10-03] MEDS ORDERED: FAMO20TA2 PO (10:18)
[2016-10-29] MEDS ORDERED: HYDR-3516 PO (11:59)
[2016-11-06] MEDS ORDERED: HYDR-3516 PO (11:03)
[2016-11-06] MEDS ORDERED: ZOLO25TA PO (11:03)
[2016-11-06] MEDS ORDERED: BACL10TA PO (11:03)
[2016-12-03] MEDS ORDERED: HYDR-3516 PO (11:10)
[2016-12-03] MEDS ORDERED: ZOLO50TA PO (11:47)
[2016-12-05] MEDS ORDERED: HYDR-3516 PO (13:53)
[2016-12-05] MEDS ORDERED: BACL10TA PO (13:57)
[2016-12-06] MEDS ORDERED: AGGR20025 PO (14:30)
[2016-12-07] MEDS ORDERED: PLAV75TA29 PO (09:39)
[2016-12-27] MEDS ORDERED: HYDR-3516 PO (11:02)
[2017-01-21] MEDS ORDERED: HYDR-3516 PO (11:27)
[2017-02-18] MEDS ORDERED: HYDR-3516 PO (13:07)
[2017-02-25] MEDS ORDERED: LIPI80TA PO (10:18)
[2017-02-25] MEDS ORDERED: SIMV80TA PO (10:22)
[2017-02-25] MEDS ORDERED: LISI-519 PO (10:28)
[2017-02-25] MEDS ORDERED: PLAV75TA29 PO (10:29)
== END 2016-09-10 12:52 | DRG 65 ==
LOC: NEPC 09:08 → NEDA 10:49 → N05B 13:00
PROVIDERS: ADMIT Hospitalist; ATTEND Hospitalist
DX: I63.512 Cerebral infarction due to unspecified occlusion or stenosis of left middle cerebral artery (principal); I69.354 Hemiplegia and hemiparesis following cerebral infarction affecting left non-dominant side; G81.91 Hemiplegia, unspecified affecting right dominant side; R47.01 Aphasia; R29.810 Facial weakness; I10 Essential (primary) hypertension; Z79.82 Long term (current) use of aspirin; E78.5 Hyperlipidemia, unspecified; I65.21 Occlusion and stenosis of right carotid artery; F17.210 Nicotine dependence, cigarettes, uncomplicated
CPT/HCPCS: 70450; 70496; 70498; 70544; 70548; 70551; 71010; 80053; 80061; 81001; 82140; 82607; 82746; 83036; 84439; 84443; 85025; 85610; 85730; 86592; 93005; 93225; 93226; 93306; 96360; 96372; A9579; C9113; J0131; J1630; J1644; J2060; J2405; J7030; L1960; Q9967

== ENCOUNTER → 2016-12-17 | Outpatient (CLI) | payer OTHER ==
[~2016-12-17] MED LIST changes: +BACL10TA PO; +HYDR-3516 PO; +LIPI80TA PO; +LISI-519 PO; -NAPR500 PO; +PLAV75TA29 PO; +PREPOIN RECTAL; -RANI150C PO; +SIMV80TA PO; -XANA1TAB6 PO; +ZOLO50TA PO
--- NOTE | 2016-12-17 13:42 | RADRPT ---
EXAM DATE/TIME: 12/17/2016 13:30 [facility] COMPARISON: No previous studies available for comparison. INDICATIONS : Right shoulder pain after stroke four months ago. MEDICAL HISTORY : Stroke. SURGICAL HISTORY : None. ENCOUNTER: Initial ACUITY: 4 - 6 months PAIN SCORE: 8/10 LOCATION: Right shoulder. FINDINGS: Two view examination of the right shoulder demonstrates no evidence of fracture or dislocation. The glenohumeral and acromioclavicular joints are maintained. Bony mineralization is normal. CONCLUSION: No acute disease. Sloan Garay MD on December 17, 2016 at 13:41 Board Certified Radiologist. This report was verified electronically.
== END ==
LOC: HRAD 13:01
PROVIDERS: ATTEND Physical Medicine & Rehabilitation
DX: M75.01 Adhesive capsulitis of right shoulder (principal)
CPT/HCPCS: 73030

== ENCOUNTER → 2017-02-21 | Outpatient (CLI) | payer OTHER ==
[2017-02-21 09:54] LABS: ALT (GPT) 33 U/L (12-78)
[2017-02-21 09:56] LABS: ALKALINE PHOSPHATASE 145 U/L (45-117); HDL CHOLESTEROL 35.2 MG/DL (40.0-60.0); LDL CHOLESTEROL 224 MG/DL (0-99); TOTAL BILIRUBIN ADULT 0.3 MG/DL (0.2-1.0)
[2017-02-21 09:57] LABS: ANION GAP 13 MEQ/L (5-15); BICARBONATE 19.3 MEQ/L (21.0-32.0); BLOOD UREA NITROGEN 11 MG/DL (7-18); CHLORIDE 101 MEQ/L (98-107); GLOMERULAR FILTRATION RATE 105 ML/MIN (>89); GLUCOSE,FASTING 95 MG/DL (74-99); SODIUM (NA) 133 MEQ/L (136-145)
[2017-02-21 10:02] LABS: AST (GOT) 26 U/L (15-37)
== END ==
LOC: CLAB 08:53
PROVIDERS: ATTEND Family Medicine
DX: R74.8 Abnormal levels of other serum enzymes (principal); G81.11 Spastic hemiplegia affecting right dominant side; I10 Essential (primary) hypertension; M25.511 Pain in right shoulder; F10.10 Alcohol abuse, uncomplicated; Z72.0 Tobacco use; I63.512 Cerebral infarction due to unspecified occlusion or stenosis of left middle cerebral artery
CPT/HCPCS: 36415; 80053; 80061; 80074

== ENCOUNTER 2017-03-19 18:17 | Inpatient (IN) | payer OTHER, MEDICAID ==
[2017-03-19] VITALS (9 sets, daily range): BP systolic 127–172; BP diastolic 78–112; PULSE 101–132; RESP 18–22; TEMP 98.6; O2SAT 96–100
[~2017-03-19] VITALS: Ht 167.6 cm; Wt 71.7 kg
[~2017-03-19 18:17] MED LIST changes: -LIPI80TA PO
[2017-03-19] MEDS ORDERED: SODIUM CHLOR 0.9% 1000 ML INJ 1,000 ML IV ONE ×3 (18:30→23:45)
--- NOTE | 2017-03-19 18:44 | RADRPT ---
EXAM DATE/TIME: 03/19/2017 18:30 [facility] COMPARISON: CT BRAIN W/O CONTRAST, August 31, 2016, 9:40. INDICATIONS : Stroke Alert- patient has right sided weakness. RADIATION DOSE: 56.35 CTDIvol (mGy) This report was called by Dr Santizo to Dipti Ham at 1841 MEDICAL HISTORY : Stroke. SURGICAL HISTORY : Non-responsive. ENCOUNTER: Initial ACUITY: 1 day PAIN SCALE: Non-responsive LOCATION: Right cranial TECHNIQUE: Multiple contiguous axial images were obtained of the head. Using automated exposure control and adj ustment of the mA and/or kV according to patient size, radiation dose was kept as low as reasonably a chievable to obtain optimal diagnostic quality images. DICOM format image data is available electro nically for review and comparison. FINDINGS: There is a chronic lacunar infarction involving left basal ganglia extending into the left conklin rad iata. This is new from the prior study but chronic in appearance. There is a chronic lacunar infarcti on involving the right head of caudate which is unchanged. No hemorrhage or acute infarction observed . Ventricles are normal in size. Paranasal sinuses and mastoid air cells are clear. Calvarium is inta ct. Orbital structures are unremarkable. CONCLUSION: 1. No acute intracranial abnormality. 2. Areas of chronic lacunar infarction as detailed above. Wiliam Santizo Jr., MD on March 19, 2017 at 18:39 Board Certified Radiologist. This report was verified electronically.
--- NOTE | 2017-03-19 18:52 | PD ---
HPI Chief Complaint: Stroke Alert Time Seen by Provider: 18:51 Travel History International Travel<30 days: No Contact w/Intl Traveler<30days: No Traveled to known affect area: No History of Present Illness HPI 57-year-old male with history of hypertension, GERD, left-sided MCA stroke in August 2016, presents today for evaluation of worsening slurred speech that began approximately 45 minutes prior to arrival. Patient is accompanied by his . She states that he has right sided upper extremity paralysis and left lower extremity weakness secondary to his stroke. She states he has had some slurred speech but not to the degree that it began 45 minutes ago. Is concerned patient is having a recurrent stroke. He is on Plavix and aspirin at home. Patient denies any headache. No chest or tightness. No difficulty breathing. Patient has not been recently ill. Patient does report right shoulder pain which is chronic for him. Patient is followed by Dr. Silveira and Dr. Olivarez. He has no other symptoms to report. PFSH Past Medical History Hx Anticoagulant Therapy: Yes (ASPIRIN ) Arthritis: Yes Asthma: No Autoimmune Disease: No Anxiety: Yes Depression: Yes Heart Rhythm Problems: No Cancer: No Cardiovascular Problems: Yes High Cholesterol: Yes Chemotherapy: No Chest Pain: No Congestive Heart Failure: No COPD: No Cerebrovascular Accident: Yes (April 2016) Diabetes: No Diminished Hearing: No Endocrine: No Gastrointestinal Disorders: Yes GERD: Yes Genitourinary: No Hiatal Hernia: Yes Hypertension: Yes Immune Disorder: No Kidney Stones: No Musculoskeletal: Yes Neurologic: Yes Psychiatric: Yes Reproductive: No Respiratory: No Immunizations Current: No Migraines: No Radiation Therapy: No Renal Failure: No Sickle Cell Disease: No Sleep Apnea: No Thyroid Disease: No Ulcer: No Past Surgical History Abdominal Surgery: Yes (Hernia repair) AICD: No Arteriovenous Shunt: No Cardiac Surgery: No Ear Surgery: No Endocrine Surgery: No Eye Surgery: No Genitourinary Surgery: No Gynecologic Surgery: No Insulin Pump: No Joint Replacement: No Oral Surgery: No Pacemaker: No Thoracic Surgery: No Other Surgery: Yes (HERNIA) Social History Alcohol Use: Yes (OCCASIONALLY ) Tobacco Use: Yes Substance Use: No Allergies-Medications (Allergen,Severity, Reaction): Coded Allergies: No Known Allergies (Verified , 03/19/17) Reported Meds & Prescriptions Reported Meds & Active Scripts Active Hydrocodone-Acetaminophen 5-325 mg Tab 1 Tab PO Q12HR PRN Plavix (Clopidogrel Bisulfate) 75 Mg Tab 75 Mg PO DAILY Lisinopril 5 Mg Tab 5 Mg PO DAILY Simvastatin 80 Mg Tab 80 Mg PO DAILY Zoloft (Sertraline HCl) 50 Mg Tab 50 Mg PO DAILY Baclofen 10 Mg Tab 20 Mg PO HS Preparation H Topical (Phenylephrine-Mineral Oil-Petrolatum Topical) 0.25-3-14- 71.9 % Oint 1 Applic RECTAL Q6H PRN 30 Days Review of Systems Except as stated in HPI: all other systems reviewed are Neg Physical Exam Narrative GENERAL: Well-nourished male patient, brought in by wheelchair, in no acute distress. Patient has significantly slurred speech. SKIN: Focused skin assessment warm/diaphoretic HEAD: Atraumatic. Normocephalic. EYES: Pupils equal and round. No scleral icterus. No injection or drainage. ENT: No nasal bleeding or discharge. Mucous membranes pink and moist. NECK: Trachea midline. No JVD. CARDIOVASCULAR: Tachycardic rate and rhythm. RESPIRATORY: No accessory muscle use. Clear to auscultation. Breath sounds equal bilaterally. GASTROINTESTINAL: Abdomen soft, non-tender, nondistended. Hepatic and splenic margins not palpable. MUSCULOSKELETAL: Right upper extremity is in a brace. Patient can move at the shoulder of the right upper extremity. Patient is able to pull his right leg onto the bed.. No clubbing. No cyanosis. No edema. NEUROLOGICAL: Awake and alert. No obvious cranial nerve deficits. Significantly slurred speech. Data Data Last Documented VS Vital Signs Date Time Temp Pulse Resp B/P Pulse Ox O2 Delivery O2 Flow Rate FiO2 03/19/17 21:50 101 18 141/84 97 Room Air 03/19/17 18:29 2.00 03/19/17 18:19 98.6 Orders Diet Npo (03/19/17 Dinner) Activity Bed Rest (03/19/17 ) Electrocardiogram (03/19/17 ) I-Stat Creatinine (03/19/17 18:30) I-Stat Profile (03/19/17 18:30) Prothrombin Time / Inr (Pt) (03/19/17 18:30) Act Partial Throm Time (Ptt) (03/19/17 18:30) Complete Blood Count With Diff (03/19/17 18:30) Fibrinogen (03/19/17 18:30) Creatine Kinase (Cpk) (03/19/17 18:30) Troponin I (03/19/17 18:30) Ua Includes Microscopic (03/19/17 18:30) Drug Screen, Random Urine (03/19/17 18:30) Type And Screen (03/19/17 18:30) Ct Brain W/O Iv Contrast(Rout) (03/19/17 ) Consult Neurology (03/19/17 ) Blood Glucose (03/19/17 18:30) Ecg Monitoring (03/19/17 18:30) Neuro Checks Q2HX12,Q4H (03/19/17 18:30) Nursing Bedside Swallow Assess .ONCE (03/19/17 18:30) Iv Access Insert/Monitor (03/19/17 18:30) NPO (03/19/17 18:30) Oximetry (03/19/17 18:30) Oxygen Administration (03/19/17 18:30) Sodium Chlor 0.9% 1000 Ml Inj (Ns 1000 M (03/19/17 18:30) Resp Oxygen Prateek C Titrat 1-4 L (03/19/17 18:30) Cath For Specimen (03/19/17 18:30) Cta Neck W Iv Contrast W 3d (03/19/17 ) Cta Brain W Iv Contrast W 3d (03/19/17 ) (Hub Use Only)Inp Phy Cons/Ref (03/19/17 ) Lorazepam Inj (Ativan Inj) (03/19/17 19:45) Lactic Acid Sepsis Protocol (03/19/17 19:45) Sodium Chlor 0.9% 1000 Ml Inj (Ns 1000 M (03/19/17 19:45) Baclofen (Lioresal) (03/19/17 20:00) Iohexol 350 Inj (Omnipaque 350 Inj) (03/19/17 20:28) Electrocardiogram (03/19/17 20:31) Lorazepam Inj (Ativan Inj) (03/19/17 22:30) Labs Laboratory Tests Test 03/19/17 03/19/17 03/19/17 18:30 18:45 20:25 Prothrombin Time 11.4 SEC Prothromb Time International 1.0 RATIO Ratio Activated Partial 30.8 SEC Thromboplast Time Fibrinogen 579 mg/dL White Blood Count 10.4 TH/MM3 Red Blood Count 4.82 MIL/MM3 Hemoglobin 13.7 GM/DL Bedside Hemoglobin 13.9 G/DL Hematocrit 41.4 % Bedside Hematocrit 41.0 % Mean Corpuscular Volume 85.8 FL Mean Corpuscular Hemoglobin 28.5 PG Mean Corpuscular Hemoglobin 33.2 % Concent Red Cell Distribution Width 13.1 % Platelet Count 464 TH/MM3 Mean Platelet Volume 8.1 FL Neutrophils (%) (Auto) 62.9 % Lymphocytes (%) (Auto) 27.1 % Monocytes (%) (Auto) 7.1 % Eosinophils (%) (Auto) 2.1 % Basophils (%) (Auto) 0.8 % Neutrophils # (Auto) 6.5 TH/MM3 Lymphocytes # (Auto) 2.8 TH/MM3 Monocytes # (Auto) 0.7 TH/MM3 Eosinophils # (Auto) 0.2 TH/MM3 Basophils # (Auto) 0.1 TH/MM3 CBC Comment DIFF FINAL Differential Comment Bedside Sodium 135 MMOL/L Bedside Potassium 4.1 MMOL/L Bedside Chloride 99 MMOL/L Bedside Blood Urea Nitrogen 8 MG/DL Bedside Creatinine 0.7 MG/DL Bedside Glucose 112 MG/DL Total Creatine Kinase 73 U/L Troponin I LESS THAN 0.02 NG/ML Blood Type A POSITIVE Antibody Screen NEGATIVE Blood Bank Comment Lactic Acid Level 3.1 mmol/L [facility] Medical Decision Making Medical Screen Exam Complete: Yes Emergency Medical Condition: Yes Medical Record Reviewed: Yes Differential Diagnosis Ischemic stroke versus ICH versus electrolyte abnormality versus sepsis Narrative Course 57-year-old male presents to emergency department for evaluation of possible stroke. Patient is an NIH 5 with slurred speech being his primary finding. I discussed the patient in my attending physician Dr. Morgan. Stroke alert is called [id number]. I received a call from Dr. Santizo at 1842 who reports no acute intracranial hemorrhage. He spoke with Dr. Bailey at 1847 who recommends CTA of the [place] and the carotids. This is ordered. Patient remains tachycardic. He is experiencing significant spasm of the right upper and lower extremity. Patient is given IV Ativan. I discussed the patient with my attending Dr. Sam who has taken over for Dr. Morgan, who recommends patient have his nightly dose of baclofen. [id number] I'm informed that the patient is having more difficulty speaking. His words are not even comprehensible at this time. CTA of the brain and carotids are without any acute findings. There is atherosclerotic disease. Patient continues to have spasms and episodes of significant tachycardia up to [address] Sam, my attending physician has spoke with Dr. Bailey. Patient may be having seizures. He is given additional dose of Ativan. A call has a place to [facility] for admission. Diagnosis Primary Impression: Slurring of speech Additional Impressions: Right shoulder pain Qualified Code: M25.511 - Chronic right shoulder pain Hemiplegia affecting dominant side Condition: Stable Dipti Ham Mar 19, 2017 18:52
[2017-03-19 19:25] LABS: I-STAT POTASSIUM 4.1 MMOL/L (3.5-4.9); I-STAT SODIUM 135 MMOL/L (138-146)
[2017-03-19 19:28] LABS: AUTOMATED NEUTROPHIL # 6.5 TH/MM3 (1.8-7.7); BASOPHIL # 0.1 TH/MM3 (0-0.2); BASOPHIL % 0.8 % (0.0-2.0); EOSINOPHIL # 0.2 TH/MM3 (0-0.4); EOSINOPHIL % 2.1 % (0.0-4.0); HEMATOCRIT 41.4 % (39.0-51.0); HEMO FLAGS DIFF FINAL; LYMPH % 27.1 % (9.0-44.0); LYMPHOCYTE # 2.8 TH/MM3 (1.0-4.8); MEAN CELL VOLUME 85.8 FL (80.0-100.0); MEAN CORPUSCULAR HEMOGLOBIN 28.5 PG (27.0-34.0); MEAN CORPUSCULAR HGB CONC 33.2 % (32.0-36.0); MONO % 7.1 % (0.0-8.0); NEUT % 62.9 % (16.0-70.0); PLATELET COUNT 464 TH/MM3 (150-450); RED BLOOD COUNT 4.82 MIL/MM3 (4.50-5.90); RED CELL DISTRIBUTION WIDTH 13.1 % (11.6-17.2); WHITE BLOOD COUNT 10.4 TH/MM3 (4.0-11.0)
[2017-03-19 19:38] LABS: APTT (PATIENT) 30.8 SEC (24.3-30.1); PROTHROMBIN TIME - PATIENT 11.4 SEC (9.8-11.6)
[2017-03-19] MEDS ORDERED: LORazepam 2 MG/ML VIAL IV PUSH ONE ×3 (19:45→22:45)
[2017-03-19 19:57] LABS: CREATINE KINASE 73 U/L (39-308)
[2017-03-19] MEDS ORDERED: BACLOFEN 20 MG TAB PO ONE (20:00)
[2017-03-19] MEDS ORDERED: IOHEXOL 350 MG/ML 10 ML VIAL (for RAD DIAG) IV ONE (20:28)
--- NOTE | 2017-03-19 21:34 | EKG ---
Date Performed: 03/19/2017 Time Performed: 18:41:14 PTAGE: 57 years EKG: SINUS TACHYCARDIA POSSIBLE LEFT ATRIAL ENLARGEMENT INDETERMINATE AXIS POSSIBLE RIGHT VENTRI CULAR CONDUCTION DELAY LEFT POSTERIOR FASCICULAR BLOCK POSSIBLE INFERIOR MYOCARDIAL INFARCTION ABNORM AL ECG Compared to prior tracing no significant change DOCTOR: Quynh Burks Interpretating Date/Time 03/19/2017 21:33:53
--- NOTE | 2017-03-19 21:51 | RADRPT ---
EXAM DATE/TIME: 03/19/2017 20:09 [facility] COMPARISON: CTA BRAIN W 3D RECON, August 31, 2016, 20:47. INDICATIONS : Stroke alert- right sided weakness. IV CONTRAST: 75 cc Omnipaque 350 (iohexol) IV RADIATION DOSE: 17.59 CTDIvol (mGy) MEDICAL HISTORY : Stroke. Hypertension. SURGICAL HISTORY : Hernia repair. ENCOUNTER: Initial ACUITY: 1 day PAIN SCALE: 4/10 LOCATION: Bilateral cranial TECHNIQUE: Volumetric scanning was performed using a multi-row detector CT scanner. The data was post processed with a variety of visualization algorithms including full volume maximum intensity projection, multi -planar sliding thin slab reformation, curved planar reformation, and surface rendering techniques. Using automated exposure control and adjustment of the mA and/or kV according to patient size, radiat ion dose was kept as low as reasonably achievable to obtain optimal diagnostic quality images. DICO M format image data is available electronically for review and comparison. FINDINGS: There is excellent visualization of the major intracranial arteries out to the second-order branch ve ssels. There is scattered atherosclerotic plaque throughout all intracranial vessels. Minimal luminal narrowing involving the left M1 and proximal right M2 branches. This is stable from the prior study. No hemodynamically significant stenosis appreciated. There is no evidence for aneurysm, vessel trunc ation and no evidence for vascular malformation. CONCLUSION: 1. Diffuse atherosclerotic plaque without a hemodynamically significant stenosis. Wiliam Santizo Jr., MD on March 19, 2017 at 21:45 Board Certified Radiologist. This report was verified electronically.
--- NOTE | 2017-03-19 21:56 | RADRPT ---
EXAM DATE/TIME: 03/19/2017 20:09 [facility] COMPARISON: CTA CAROTID ARTERIES W 3D RECON, August 31, 2016, 20:47. INDICATIONS : Stroke alert, right sided weakness. IV CONTRAST: 75 cc Omnipaque 350 (iohexol) IV RADIATION DOSE: 17.59 CTDIvol (mGy) ; Combined studies MEDICAL HISTORY : Hypertension. Stroke SURGICAL HISTORY : Hernia repair. ENCOUNTER: Initial ACUITY: 1 day PAIN SCALE: 4/10 LOCATION: Bilateral cranial Elevated flow velocities and ICA/CCA ratios have been found to correlate with increased degrees of vessel stenosis, calculated as percentage of diameter relative to a normal segment of distal ICA/CCA. TECHNIQUE: Volumetric scanning was performed using a multirow detector CT scanner. The data was post processed with a variety of visualization algorithms including full-volume maximum intensity projection, multip lanar sliding thin-slab reformation, curved-planar reformation, and surface-rendering techniques. Us ing automated exposure control and adjustment of the mA and/or kV according to patient size, radiatio n dose was kept as low as reasonably achievable to obtain optimal diagnostic quality images. DICOM f ormat image data is available electronically for review and comparison. FINDINGS: AORTIC ARCH: There is a three-vessel origin of the great vessels from the aorta. No evidence of ostial narrowing. RIGHT CAROTID: Scattered partially calcified atheromatous plaque throughout the carotid bulb and proximal ICA. There is a 10% stenosis involving the proximal ICA utilizing NASCET criteria. This occurs 1 cm cephalad to the origin. No ulceration. More cephalad portion of the extracranial ICA is widely patent. ECA is pa tent. LEFT CAROTID: Scattered calcified atheromatous plaque throughout the carotid bulb and proximal ICA without luminal narrowing utilizing NASCET criteria. The ICA, ECA and CCA are patent. VERTEBRALS: The vertebral arteries have a symmetric diameter. No stenotic lesions are seen. CONCLUSION: Atherosclerotic plaque without a hemodynamically significant stenosis involving either carotid artery or vertebral artery. Wiliam Santizo Jr., MD on March 19, 2017 at 21:49 Board Certified Radiologist. This report was verified electronically.
[2017-03-19 22:32] LABS: LACTIC ACID GHOST NOT REPORTABLE
--- NOTE | 2017-03-19 23:28 | HHI.HP ---
HPI Service Critical Care Medicine Primary Care Physician Adry Olivarez MD Admission Diagnosis ACUTE DYSARTHRIA; TACHYCARDIA; ?SEIZURES Diagnosis: Travel History International Travel<30 Days: No Contact w/Intl Traveler <30 Da: No Traveled to Known Affected Are: No History of Present Illness 57-year-old male with history of hypertension, GERD, left MCA territory stroke in August 2016, presents today for evaluation of worsening slurred speech that began approximately 45 minutes prior to arrival. Per patient's he has right sided upper extremity paralysis and left lower extremity weakness secondary to his stroke. She states he has had some slurred speech but not to the degree that it began 45 minutes ago. Is concerned patient is having a recurrent stroke. He is on Plavix and aspirin at home. Patient denies any headache. No chest or tightness. No difficulty breathing. Patient has not been recently ill. He has been on by mouth baclofen for contractures, however he wasn't able to take those pills for last 24 hours due to difficulty swallowing. Review of Systems ROS Unable to obtain patient has difficulty to speak Past Family Social History Allergies: Coded Allergies: No Known Allergies (Verified , 03/19/17) Past Medical History Arthritis: Yes Anxiety: Yes Cerebrovascular Accident: Yes Hypertension: Yes Past Surgical History Hernia repair Reported Medications Reported Meds & Active Scripts Active Hydrocodone-Acetaminophen 5-325 mg Tab 1 Tab PO Q12HR PRN Plavix (Clopidogrel Bisulfate) 75 Mg Tab 75 Mg PO DAILY Lisinopril 5 Mg Tab 5 Mg PO DAILY Simvastatin 80 Mg Tab 80 Mg PO DAILY Zoloft (Sertraline HCl) 50 Mg Tab 50 Mg PO DAILY Baclofen 10 Mg Tab 20 Mg PO HS Preparation H Topical (Phenylephrine-Mineral Oil-Petrolatum Topical) 0.25-3-14- 71.9 % Oint 1 Applic RECTAL Q6H PRN 30 Days Active Ordered Medications Current Medications Medications (Trade) Dose Ordered Sig/Ryan Route PRN Reason Start Time Stop Time Status Last Admin Dose Admin Sodium Chloride (NS 1000 ml Inj) 1,000 ml @ 84 mls/hr [id number] IV 03/19/17 23:36 03/20/17 00:00 Sodium Chloride (NS Flush) 2 ml UNSCH PRN .XX FLUSH AFTER USING IV ACCESS 03/19/17 23:45 Sodium Chloride (NS Flush) 2 ml BID .XX 03/20/17 09:00 Acetaminophen (Tylenol) 650 mg Q6H PRN PO PAIN 1-10 AND/OR FEVER >101F 03/19/17 23:45 Morphine Sulfate (Morphine Inj) 2 mg Q2H PRN IV PUSH PAIN SCALE 6 TO 10 03/19/17 23:45 03/20/17 05:15 Famotidine (Pepcid Inj) 20 mg Q12HR IV PUSH 03/20/17 09:00 Lorazepam (Ativan Inj) 1 mg Q1H PRN IV Agitation/Sedation 03/19/17 23:45 03/20/17 05:15 Artificial Tears (Tears Naturale Opth Soln) 1 drop TID EACH EYE 03/20/17 09:00 Ondansetron HCl (Zofran Inj) 4 mg Q6H PRN IV NAUSEA OR VOMITING 03/19/17 23:45 Heparin Sodium (Porcine) (Heparin Inj) 5,000 units Q12H SQ 03/19/17 23:45 03/20/17 00:19 Miscellaneous Information 1 [id number] XX 03/19/17 23:45 Chlorhexidine Gluconate (Chlorhexidine 2% Cloth) 3 pack Taper DAILY@04 TOP 03/20/17 04:00 03/16/18 03:59 03/20/17 02:59 Chlorhexidine Gluconate (Chlorhexidine 2% Cloth) 3 pack UNSCH PRN TOP HYGIENIC CARE 03/19/17 23:45 Senna/Docusate Sodium ([place]-Colace) 1 tab BID PO 03/20/17 09:00 Magnesium Hydroxide (Milk Of Magnesia Liq) 30 ml Q12H PRN PO MILD - MODERATE CONSTIPATION 03/19/17 23:45 Sennosides (Senokot) 17.2 mg Q12H PRN PO MODERATE - SEVERE CONSTIPATION 03/19/17 23:45 Bisacodyl (Dulcolax Supp) 10 mg DAILY PRN RECTAL SEVERE CONSITIPATION 03/19/17 23:45 Lactulose (Lactulose Liq) 30 ml DAILY PRN PO SEVERE CONSITIPATION 03/19/17 23:45 Baclofen (Lioresal) 20 mg HS PO 03/20/17 21:00 Clopidogrel Bisulfate (Plavix) 75 mg DAILY PO 03/20/17 09:00 Acetaminophen/ Hydrocodone Bitart ([place] 5-325 Mg) 1 tab Q12HR PRN PO Pain 5-10 03/19/17 23:45 Lisinopril (Prinivil) 5 mg DAILY PO 03/20/17 09:00 Shark Liver Oil (Preparation H Oint) 1 applic Q6H PRN RECTAL HEMMORHOIDS 03/19/17 23:45 Sertraline HCl (Zoloft) 50 mg DAILY PO 03/20/17 09:00 Pravastatin Sodium 80 mg 80 mg DAILY PO CM 03/20/17 09:00 Levetriacetam/ Sodium Chloride (Keppra Inj/NS Inj) 105 ml @ 420 mls/hr Q12HR IV 03/19/17 23:45 03/20/17 00:18 Family History No family history of premature coronary artery disease or cancer Social History No recent history of illicit drug tobacco or alcohol abuse Physical Exam Vital Signs Vital Signs Date Time Temp Pulse Resp B/P Pulse Ox O2 Delivery O2 Flow Rate FiO2 03/19/17 23:02 22 149/84 99 Room Air 03/19/17 21:50 101 18 141/84 97 Room Air 03/19/17 20:30 108 18 128/78 96 Room Air 03/19/17 19:30 118 18 136/85 96 Room Air 03/19/17 19:19 124 20 127/81 96 Room Air 03/19/17 19:07 113 20 127/81 97 Room Air 03/19/17 19:01 100 Room Air 03/19/17 19:01 117 20 172/99 100 Room Air 03/19/17 18:42 100 Room Air 03/19/17 18:29 98 Nasal Cannula 2.00 03/19/17 18:29 98 2.00 03/19/17 18:19 98.6 132 22 169/112 97 Physical Exam GENERAL: Well-nourished male patient, brought in by wheelchair, with episodes of tachycardia and diaphoresis. Patient has significantly slurred speech. SKIN: Focused skin assessment warm/diaphoretic HEAD: Atraumatic. Normocephalic. EYES: Pupils equal and round. No scleral icterus. No injection or drainage. ENT: No nasal bleeding or discharge. Mucous membranes pink and moist. NECK: Trachea midline. No JVD. CARDIOVASCULAR: Tachycardic rate and rhythm. RESPIRATORY: No accessory muscle use. Clear to auscultation. Breath sounds equal bilaterally. GASTROINTESTINAL: Abdomen soft, non-tender, nondistended. Hepatic and splenic margins not palpable. MUSCULOSKELETAL: Right upper extremity is in a brace. Patient can move at the shoulder of the right upper extremity. Patient is able to pull his right leg onto the bed.. No clubbing. No cyanosis. No edema. NEUROLOGICAL: Significantly slurred speech. Laboratory Laboratory Tests Test 03/19/17 03/19/17 03/19/17 18:30 18:45 20:25 Prothrombin Time 11.4 Prothromb Time International 1.0 Ratio Activated Partial 30.8 Thromboplast Time Fibrinogen 579 White Blood Count 10.4 Red Blood Count 4.82 Hemoglobin 13.7 Bedside Hemoglobin 13.9 Hematocrit 41.4 Bedside Hematocrit 41.0 Mean Corpuscular Volume 85.8 Mean Corpuscular Hemoglobin 28.5 Mean Corpuscular Hemoglobin 33.2 Concent Red Cell Distribution Width 13.1 Platelet Count 464 Mean Platelet Volume 8.1 Neutrophils (%) (Auto) 62.9 Lymphocytes (%) (Auto) 27.1 Monocytes (%) (Auto) 7.1 Eosinophils (%) (Auto) 2.1 Basophils (%) (Auto) 0.8 Neutrophils # (Auto) 6.5 Lymphocytes # (Auto) 2.8 Monocytes # (Auto) 0.7 Eosinophils # (Auto) 0.2 Basophils # (Auto) 0.1 CBC Comment DIFF FINAL Differential Comment Bedside Sodium 135 Bedside Potassium 4.1 Bedside Chloride 99 Bedside Blood Urea Nitrogen 8 Bedside Creatinine 0.7 Bedside Glucose 112 Total Creatine Kinase 73 Troponin I LESS THAN 0.02 Blood Type A POSITIVE Antibody Screen NEGATIVE Blood Bank Comment Lactic Acid Level 3.1 Result Diagram: 03/19/17 1845 Assessment and Plan Assessment and Plan Altered mental status with slurred speech - MRI brain - Seizure prophylaxis - Keppra - Further workup per neurology - Continue aspirin and Plavix Hypertensive urgency - Lisinopril Spasm post previous CVA - Resume baclofen DVT GI prophylaxis - Subcutaneous heparin and Pepcid Critical Care: The total critical care time was 35 minutes. Time to perform other separately billable procedures was not included in the critical care time. Sergio Armas MD Mar 19, 2017 23:28
[2017-03-19] MEDS ORDERED: LABETALOL HCL 100 MG/20 ML VIAL IV PUSH ONE (23:30)
[2017-03-19] MEDS ORDERED: RESP: ALBUTEROL 2.5 MG/IPRATROPIUM 0.5 MG NEB (PRN) INH (23:45)
[2017-03-19] MEDS ORDERED: LORazepam 2 MG/ML VIAL IV PRN (23:45)
[2017-03-19] MEDS ORDERED: ACETAMINOPHEN 325 MG TAB PO PRN (23:45)
[2017-03-19] MEDS ORDERED: ONDANSETRON HCL 4 MG/2 ML VIAL IV PRN (23:45)
[2017-03-19] MEDS ORDERED: MORPHINE SULFATE 8 MG/ML INJ IV PUSH PRN (23:45)
[2017-03-19] MEDS ORDERED: MISCELLANEOUS NURSING INFORMATION XX SCH (23:45)
[2017-03-19] MEDS ORDERED: BISACODYL 10 MG SUPP RECTAL PRN (23:45)
[2017-03-19] MEDS ORDERED: ACETAMINOPHEN/HYDROcodone 325 MG/5 MG TAB PO PRN (23:45)
[2017-03-19] MEDS ORDERED: SENNOSIDES 8.6 MG TAB PO PRN (23:45)
[2017-03-19] MEDS ORDERED: LACTULOSE SYRUP 20 GM/30 ML CUP PO PRN (23:45)
[2017-03-19] MEDS ORDERED: MAGNESIUM HYDROXIDE SUSP 30 ML CUP PO PRN (23:45)
[2017-03-19] MEDS ORDERED: SODIUM CHLORIDE 0.9% FLUSH 10 ML FLUSH PRN (23:45)
[2017-03-19] MEDS ORDERED: CHLORHEXIDINE GLUCONATE 2 % 1 PACK (2 CLOTHS) TOP PRN (23:45)
[2017-03-19] MEDS ORDERED: PETROLEUM/SHARK LIVER OIL 60 GM TUBE RECTAL PRN (23:45)
--- NOTE | 2017-03-19 23:57 | PD ---
Data Data Last Documented VS Vital Signs Date Time Temp Pulse Resp B/P Pulse Ox O2 Delivery O2 Flow Rate FiO2 03/19/17 21:50 101 18 141/84 97 Room Air 03/19/17 18:29 2.00 03/19/17 18:19 98.6 Orders Diet Npo (03/19/17 Dinner) Activity Bed Rest (03/19/17 ) Electrocardiogram (03/19/17 ) I-Stat Creatinine (03/19/17 18:30) I-Stat Profile (03/19/17 18:30) Prothrombin Time / Inr (Pt) (03/19/17 18:30) Act Partial Throm Time (Ptt) (03/19/17 18:30) Complete Blood Count With Diff (03/19/17 18:) Fibrinogen (03/19/17 18:30) Creatine Kinase (Cpk) (03/19/17 18:30) Troponin I (03/19/17 18:30) Ua Includes Microscopic (03/19/17 18:30) Drug Screen, Random Urine (03/19/17 18:30) Type And Screen (03/19/17 18:30) Ct Brain W/O Iv Contrast(Rout) (03/19/17 ) Consult Neurology (03/19/17 ) Blood Glucose (03/19/17 18:30) Ecg Monitoring (03/19/17 18:30) Neuro Checks Q2HX12,Q4H (03/19/17 18:30) Nursing Bedside Swallow Assess .ONCE (03/19/17 18:30) Iv Access Insert/Monitor (03/19/17 18:30) NPO (03/19/17 18:30) Oximetry (03/19/17 18:30) Oxygen Administration (03/19/17 18:30) Sodium Chlor 0.9% 1000 Ml Inj (Ns 1000 M (03/19/17 18:30) Resp Oxygen Prateek C Titrat 1-4 L (03/19/17 18:30) Cath For Specimen (03/19/17 18:30) Cta Neck W Iv Contrast W 3d (03/19/17 ) Cta Brain W Iv Contrast W 3d (03/19/17 ) (Hub Use Only)Inp Phy Cons/Ref (03/19/17 ) Lorazepam Inj (Ativan Inj) (03/19/17 19:45) Lactic Acid Sepsis Protocol (03/19/17 19:45) Sodium Chlor 0.9% 1000 Ml Inj (Ns 1000 M (03/19/17 19:45) Baclofen (Lioresal) (03/19/17 20:00) Iohexol 350 Inj (Omnipaque 350 Inj) (03/19/17 20:28) Electrocardiogram (03/19/17 20:31) Lorazepam Inj (Ativan Inj) (03/19/17 22:30) Lorazepam Inj (Ativan Inj) (03/19/17 22:45) Blood Culture (03/19/17 22:44) Admit Order (Ed Use Only) (03/19/17 22:48) Labs Laboratory Tests Test 03/19/17 03/19/17 03/19/17 18:30 18:45 20:25 Prothrombin Time 11.4 SEC Prothromb Time International 1.0 RATIO Ratio Activated Partial 30.8 SEC Thromboplast Time Fibrinogen 579 mg/dL White Blood Count 10.4 TH/MM3 Red Blood Count 4.82 MIL/MM3 Hemoglobin 13.7 GM/DL Bedside Hemoglobin 13.9 G/DL Hematocrit 41.4 % Bedside Hematocrit 41.0 % Mean Corpuscular Volume 85.8 FL Mean Corpuscular Hemoglobin 28.5 PG Mean Corpuscular Hemoglobin 33.2 % Concent Red Cell Distribution Width 13.1 % Platelet Count 464 TH/MM3 Mean Platelet Volume 8.1 FL Neutrophils (%) (Auto) 62.9 % Lymphocytes (%) (Auto) 27.1 % Monocytes (%) (Auto) 7.1 % Eosinophils (%) (Auto) 2.1 % Basophils (%) (Auto) 0.8 % Neutrophils # (Auto) 6.5 TH/MM3 Lymphocytes # (Auto) 2.8 TH/MM3 Monocytes # (Auto) 0.7 TH/MM3 Eosinophils # (Auto) 0.2 TH/MM3 Basophils # (Auto) 0.1 TH/MM3 CBC Comment DIFF FINAL Differential Comment Bedside Sodium 135 MMOL/L Bedside Potassium 4.1 MMOL/L Bedside Chloride 99 MMOL/L Bedside Blood Urea Nitrogen 8 MG/DL Bedside Creatinine 0.7 MG/DL Bedside Glucose 112 MG/DL Total Creatine Kinase 73 U/L Troponin I LESS THAN 0.02 NG/ML Blood Type A POSITIVE Antibody Screen NEGATIVE Blood Bank Comment Lactic Acid Level 3.1 mmol/L MDM Supervised Visit with LAURIE: Yes Narrative Course The history, exam, and medical decision-making in the associated mid-level provider note were completed with my assistance. I reviewed and agree with the findings presented. I attest that I had a [id number] encounter with the patient on the same day, and personally performed and documented my assessment and findings in the medical record. *My assessment and Findings: Patient was initially seen prior to me coming on at 7 PM. Patient is a history of stroke with residual right sided weakness. Apparently has some minimal speech impairment normally. He's had worsening aphasia and dysarthria today. Decision had been made not pursue TPA. All with this patient developed worsening speech difficulties. He seemed to be fairly abrupt in onset. He also had intermittent episodes of tachycardia. Is associated with a generalized ill appearance, and right sided spasms. I spoke with Dr. lo again, some thought the patient may been seizing. He got some Ativan. We also considered that he may be an in baclofen withdrawal. He did not get his dose tonight. It is only available orally. Given the patient's ill appearance, diagnostic uncertainty, we did admit the patient to the ICU to Dr. Armas. He came to the bedside to evaluate the patient. We'll continue IV fluids, he recommended beta blockers, will admit to the ICU. Diagnosis Primary Impression: Slurring of speech Additional Impressions: Hemiplegia affecting dominant side Right shoulder pain Condition: Stable Anthony Sam MD Mar 19, 2017 23:57
[2017-03-20] VITALS (16 sets, daily range): BP systolic 112–154; BP diastolic 66–95; PULSE 90–112; RESP 16–21; TEMP 97.7–98.5; O2SAT 96–100
[2017-03-20] MEDS: levETIRAcetam INJ 500 MG in SODIUM CHLORIDE 0.9% INJ 100 ML IV SCH ×3 (00:18→20:11)
[2017-03-20] MEDS: HEPARIN SODIUM - SQ 10,000 UNITS/ML VIAL SQ SCH ×2 (00:19→11:45)
[2017-03-20] MEDS: CHLORHEXIDINE GLUCONATE 2 % 1 PACK (2 CLOTHS) TOP SCH (02:59)
[2017-03-20 05:13] LABS: AUTOMATED NEUTROPHIL # 6.7 TH/MM3 (1.8-7.7); BASOPHIL # 0.1 TH/MM3 (0-0.2); BASOPHIL % 1.5 % (0.0-2.0); EOSINOPHIL % 0.4 % (0.0-4.0); HEMATOCRIT 35.7 % (39.0-51.0); HEMO FLAGS DIFF FINAL; LYMPH % 22.9 % (9.0-44.0); LYMPHOCYTE # 2.3 TH/MM3 (1.0-4.8); MEAN CELL VOLUME 86.3 FL (80.0-100.0); MEAN CORPUSCULAR HEMOGLOBIN 28.6 PG (27.0-34.0); MEAN CORPUSCULAR HGB CONC 33.1 % (32.0-36.0); MONO % 7.2 % (0.0-8.0); PLATELET COUNT 419 TH/MM3 (150-450); RED BLOOD COUNT 4.14 MIL/MM3 (4.50-5.90); RED CELL DISTRIBUTION WIDTH 12.9 % (11.6-17.2); WHITE BLOOD COUNT 9.9 TH/MM3 (4.0-11.0)
[2017-03-20 05:44] LABS: ALT (GPT) 27 U/L (12-78); ANION GAP 9 MEQ/L (5-15); AST (GOT) 18 U/L (15-37); BICARBONATE 23.6 MEQ/L (21.0-32.0); BLOOD UREA NITROGEN 7 MG/DL (7-18); CHLORIDE 107 MEQ/L (98-107); GLOMERULAR FILTRATION RATE 124 ML/MIN (>89); MAGNESIUM 1.9 MG/DL (1.5-2.5); POTASSIUM 3.6 MEQ/L (3.5-5.1); SODIUM (NA) 140 MEQ/L (136-145)
[2017-03-20 05:46] LABS: ALKALINE PHOSPHATASE 172 U/L (45-117); TOTAL BILIRUBIN ADULT 0.2 MG/DL (0.2-1.0)
[2017-03-20 06:47] LABS: BLOOD, URINE NEG (NEG); COMMENT (UR) CULT NOT INDICATED; GLUCOSE,URINE NEG (NEG); KETONE, URINE NEG (NEG); NITRITE,URINE NEG (NEG); PH, URINE 7.5 (5.0-8.5); URINE COLOR YELLOW (YELLW/STRAW)
[2017-03-20 07:00] LABS: AMPHETAMINE, URINE NEG (NEG); BARBITURATES, URINE NEG (NEG); COCAINE, URINE NEG (NEG)
[2017-03-20 08:29] LABS: CREATINE KINASE 170 U/L (39-308)
[2017-03-20 08:43] LABS: CKMB 1.2 NG/ML (0.5-3.6)
[2017-03-20] MEDS: DOCUSATE SODIUM 50 MG/SENNA 8.6 MG TAB PO SCH ×2 (09:00→20:12)
[2017-03-20] MEDS: PRAVASTATIN SOD 80 MG TAB PO SCH (09:00)
[2017-03-20] MEDS: CLOPIDOGREL 75 MG TAB PO SCH (09:00)
[2017-03-20] MEDS: SODIUM CHLORIDE 0.9% FLUSH 10 ML FLUSH SCH ×2 (09:00→20:55)
[2017-03-20] MEDS: LISINOPRIL 5 MG TAB PO SCH (09:00)
[2017-03-20] MEDS: SERTRALINE HCL 50 MG TAB PO SCH (09:00)
[2017-03-20 10:25] LABS: BLOOD GAS BASE EXCESS -2.4 mmol/L (-2-2); BLOOD GAS HCO3 22 mmol/L (22-26); BLOOD GAS METHEMOGLOBIN 1.1 % (0-2); BLOOD GAS O2 HGB SATURATION 96 % (90-100); BLOOD GAS PCO2 36 mmHg (38-42); BLOOD GAS PO2 110 mmHg (61-120); BLOOD GAS TOTAL HGB 12.5 G/DL (12.0-16.0); CRITICAL VALUE NO; DRAW SITE LT RADIAL; FIO2 28 %; LITER FLOW 2 L/M; NUMBER OF ARTERIAL PUNCTURES 1; OXYGEN DEVICE NASAL CANNULA; STAT YES; TEMP CORR TO 98.6; ULNAR PULSE PRESENT
[2017-03-20] MEDS ORDERED: MAGNESIUM SULFATE INJ 4 GM in SODIUM CHLORIDE 0.9% INJ 92 ML IV PRN (10:45)
[2017-03-20] MEDS ORDERED: MAGNESIUM SULFATE INJ 2 GM in SODIUM CHLORIDE 0.9% INJ 96 ML IV PRN (10:45)
[2017-03-20] MEDS ORDERED: POTASSIUM PHOSPHATE MONOBASIC 500 MG TAB PO/TUBE PRN (10:45)
[2017-03-20] MEDS ORDERED: POTASSIUM CHLOR 20 MEQ PREMIX 100 ML IV PRN (10:45)
[2017-03-20] MEDS ORDERED: POTASSIUM CHLORIDE 25 MEQ EFFERVESCENT TAB PO PRN (10:45)
[2017-03-20] MEDS ORDERED: POTASSIUM CHLOR 40 MEQ PREMIX 100 ML IV PRN ×2 (10:45)
[2017-03-20] MEDS ORDERED: MAGNESIUM OXIDE 400 MG TAB PO PRN (10:45)
[2017-03-20] MEDS ORDERED: SODIUM PHOSPHATE INJ 30 MMOL in SODIUM CHLOR 0.9% 250 ML INJ 240 ML IV PRN (10:45)
[2017-03-20] MEDS ORDERED: POTASSIUM PHOSPHATE MONOBASIC 500 MG TAB PO PRN (10:45)
[2017-03-20] MEDS ORDERED: POTASSIUM PHOSPHATE INJ 30 MMOL in SODIUM CHLOR 0.9% 250 ML INJ 250 ML IV PRN (10:45)
--- NOTE | 2017-03-20 11:12 | EKG ---
Date Performed: 03/19/2017 Time Performed: 20:31:05 PTAGE: 57 years EKG: SINUS TACHYCARDIA POSSIBLE LEFT ATRIAL ENLARGEMENT INDETERMINATE AXIS POSSIBLE RIGHT VENTRI CULAR CONDUCTION DELAY PROBABLE INFERIOR MYOCARDIAL INFARCTION ABNORMAL ECG PREVIOUS TRACING : 03/19/2017 18.41 Compared to prior tracing no significant change DOCTOR: Quynh Burks Interpretating Date/Time 03/20/2017 11:12:20
[2017-03-20] MEDS: FAMOTIDINE 20 MG/2 ML VIAL IV PUSH SCH ×2 (11:14→20:11)
[2017-03-20] MEDS: ARTIFICIAL TEARS OPTH SOLN 15 ML BTL EACH EYE SCH ×3 (11:14→18:00)
[2017-03-20] MEDS: SODIUM CHLOR 0.9% 1000 ML INJ 1,000 ML IV SCH ×3 (11:15→23:26)
--- NOTE | 2017-03-20 11:19 | HHI.CCPN ---
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 Per patient's he has right sided upper extremity paralysis and left lower extremity weakness secondary to his stroke. She states he has had some slurred speech but not to the degree that it began 45 minutes ago. Is concerned patient is having a recurrent stroke. He is on Plavix and aspirin at home. Patient denies any headache. No chest or tightness. No difficulty breathing. Patient has not been recently ill. He has been on by mouth baclofen for contractures, however he wasn't able to take those pills for last 24 hours due to difficulty swallowing. Subjective: 03/20; Afebrile. Upon evaluation this a.m., the patient completely aphasic, not responding to any commands. Diaphoretic, and tachycardic. CT brain was negative. Pending MRI this a.m.. Patient has received thus far since admission to the hospital noted Ativan 5 mg in conjunction with 2 mg of morphine in the emergency department. EEG currently underway. Neurology has been consulted. Patient was noted have bladder outlet obstruction previously, Minimal urine output with condom catheter, Zimmerman inserted with slight difficulty now adequate drainage. No seizure activity noted only spasticity at this time, patient continues on baclofen. Objective Vital Signs Date Time Temp Pulse Resp B/P Pulse Ox O2 Delivery O2 Flow Rate FiO2 03/20/17 09:37 100 Nasal Cannula 2.00 03/20/17 08:00 98.2 101 16 143/95 Result Diagram: 03/20/17 0459 03/20/17 0459 Other Results Laboratory Tests Test 03/20/17 10:14 Blood Gas Puncture Site LT RADIAL Blood Gas Patient Temperature 98.6 Blood Gas HCO3 22 mmol/L (22-26) Blood Gas Base Excess -2.4 mmol/L (-2-2) Blood Gas Oxygen Saturation 96 % (90-100) Arterial Blood pH 7.40 (7.380-7.420) Arterial Blood Partial 36 mmHg (38-42) Pressure CO2 Arterial Blood Partial 110 mmHg Pressure O2 (61-120) Arterial Blood Oxygen Content 17.0 Vol % (12.0-20.0) Arterial Blood 1.0 % (0-4) Carboxyhemoglobin Arterial Blood Methemoglobin 1.1 % (0-2) Blood Gas Hemoglobin 12.5 G/DL (12.0-16.0) Oxygen Delivery Device NASAL CANNULA Blood Gas Liter Flow 2 L/M Blood Gas Inspired Oxygen 28 % Objective Remarks GENERAL: Well-nourished male patient, lying in bed, not responding, spastic movements noted SKIN: Focused skin assessment warm/diaphoretic HEAD: Atraumatic. Normocephalic. EYES: Pupils equal and round. No scleral icterus. No injection or drainage. ENT: No nasal bleeding or discharge. Mucous membranes pink and moist. Nasal cannula at 2 L NECK: Trachea midline. No JVD. CARDIOVASCULAR: Tachycardia rate(101-115)and rhythm. RESPIRATORY: No accessory muscle use. Clear to auscultation. Breath sounds equal bilaterally. GASTROINTESTINAL: Abdomen soft, non-tender, nondistended. Hepatic and splenic margins not palpable. MUSCULOSKELETAL: Right upper extremity is in a brace. Patient can move at the shoulder of the right upper extremity. Patient is able to pull his right leg onto the bed.. No clubbing. No cyanosis. No edema. NEUROLOGICAL: Not responding, eyes closed, minimal spastic movement. A/P Assessment and Plan Altered mental status with slurred speech - 03/20 F/U MRI brain this am - Seizure prophylaxis- Keppra - [id number] - Further workup per neurology-consulted - Continue aspirin and Plavix -Hold Ativan, and sedative type medications at this time Hypertensive urgency - Lisinopril home medication ( patient unable to take by mouth meds at this time ) -Labetalol 10 mg every 6 hours when necessary for systolic blood pressure greater than 160mmHG Tachycardia -Metoprolol 2.5 mg every 6 hours -Labetalol 10 mg every 6 hours for systolic blood pressure greater than 160mmHg Spasm post previous CVA - Resume baclofen Mild protein calorie malnutrition -Planned to insert Dobbhoff tube, dietary consult Hyperlipidemia -Monitor LFTs -Obtain lipid panel DVT GI prophylaxis - Subcutaneous heparin and Pepcid Critical Care: This patient remains critically ill with one or more organ systems which are or may become a threat to life. I have spent in excess of 30 minutes discontinuously in the care and management of this patient. This time is exclusive of procedures, and includes, but is not limited to, evaluation of the patient, review of the medical record, discussions with family, consultants, nursing staff, or respiratory therapy, and documentation in the medical record. Physician Jessie Dimas MD Mar 20, 2017 11:19
[2017-03-20] MEDS ORDERED: LABETALOL HCL 100 MG/20 ML VIAL IV PUSH PRN (11:30)
[2017-03-20] MEDS ORDERED: MIDAZOLAM HCL 2 MG/2 ML VIAL IV PRN (12:00)
[2017-03-20] MEDS ORDERED: ROCURONIUM INJ 100 MG/10 ML VIAL IV ONE (13:15)
[2017-03-20] MEDS ORDERED: fentaNYL CITRATE 250 MCG/5 ML AMP IV PUSH ONE (13:15)
[2017-03-20] MEDS ORDERED: ETOMIDATE 40 MG/20 ML VIAL IV PUSH ONE (13:15)
[2017-03-20] MEDS ORDERED: ROCURONIUM INJ 50 MG/5 ML VIAL ONE (13:26)
[2017-03-20] MEDS ORDERED: DIATRIZOATE MEGLUM/DIATRIZOATE SOD 9 ML CUP PO ONE (13:58)
--- NOTE | 2017-03-20 14:07 | RADRPT ---
EXAM DATE/TIME: 03/20/2017 12:12 [facility] COMPARISON: MRA CAROTIDS W CONTRAST, August 31, 2016, 12:10. INDICATIONS : Altered mental status. MEDICAL HISTORY : Hypertension. prior cva SURGICAL HISTORY : None. ENCOUNTER: Subsequent ACUITY: 1 day PAIN SCORE: Nonresponsive. LOCATION: cranial TECHNIQUE: Multiplanar, multisequence MRI of the brain was performed without contrast. FINDINGS: The examination is limited by motion artifact. There is an area of abnormal diffusion signal involving the caudate nucleus on the right. This would be consistent with acute cortical infarct. No other abnormal signal is seen on the diffusion restrict ion images. The T2-weighted images demonstrate a small area of encephalomalacia just posterior to the caudate on the left consistent with an old area of infarct. No abnormal extra-axial fluid collections are seen. No mass lesion is identified. The appearance of the posterior fossa is unremarkable. CONCLUSION: 1. There is an area of acute cortical infarct involving the caudate nucleus on the right. 2. Old infarct involving the caudate on the left. 3. Limited exam due to motion artifact Adolph Pepe MD on March 20, 2017 at 13:59 Board Certified Radiologist. This report was verified electronically.
[2017-03-20] MEDS: PROPOFOL 1000 MG/100 ML INJ 100 ML IV SCH ×3 (14:25→21:37)
[2017-03-20] MEDS ORDERED: ROCURONIUM INJ 50 MG/5 ML VIAL IV ONE (14:30)
--- NOTE | 2017-03-20 15:09 | RADRPT ---
EXAM DATE/TIME: 03/20/2017 14:31 [facility] COMPARISON: CHEST SINGLE AP, August 31, 2016, 9:34. INDICATIONS : Intubation. MEDICAL HISTORY : Stroke. SURGICAL HISTORY : Non-responsive. ENCOUNTER: Subsequent ACUITY: 2 days PAIN SCORE: Non-responsive. LOCATION: Bilateral chest FINDINGS: A single portable frontal view the chest shows the tip of the endotracheal tube 4 cm proximal to the tomas. A left lower lobe intra-alveolar opacities seen within the medial left lung base. Right lung is clear. No effusions. Heart is normal in size. Bony structures are unremarkable. CONCLUSION: Endotracheal tube. Left lower lobe infiltrate. Wiliam Santizo Jr., MD on March 20, 2017 at 15:06 Board Certified Radiologist. This report was verified electronically.
[2017-03-20 15:27] LABS: HDL CHOLESTEROL 33.4 MG/DL (40.0-60.0)
[2017-03-20 16:06] LABS: BLOOD GAS BASE EXCESS -3.9 mmol/L (-2-2); BLOOD GAS CARBOXYHEMOGLOBIN 0.8 % (0-4); BLOOD GAS HCO3 20 mmol/L (22-26); BLOOD GAS METHEMOGLOBIN 1.1 % (0-2); BLOOD GAS O2 HGB SATURATION 96 % (90-100); BLOOD GAS OXYGEN CONTENT 17.4 Vol % (12.0-20.0); BLOOD GAS PCO2 36 mmHg (38-42); BLOOD GAS PO2 101 mmHg (61-120); BLOOD GAS TOTAL HGB 12.8 G/DL (12.0-16.0); CRITICAL VALUE NO; DRAW SITE LT BRACHIAL; FIO2 50 %; NUMBER OF ARTERIAL PUNCTURES 1; OXYGEN DEVICE VENTILATOR; STAT NO; TEMP CORR TO 98.6
[2017-03-20] MEDS ORDERED: DEXTROSE 50% IN WATER 50 ML VIAL(D50) IV PUSH PRN (16:15)
[2017-03-20] MEDS ORDERED: GLUCAGON 1 MG/ML VIAL OTHER PRN (16:15)
[2017-03-20] MEDS ORDERED: SODIUM CHLORIDE 0.9% FLUSH 5 ML FLUSH IV FLUSH PRN (16:15)
--- NOTE | 2017-03-20 16:17 | PD.CONS ---
History of Present Illness Service Infectious Disease Consult Requested By Dr Sylvester Joseph Reason for Consult Evaluate patient for possible sepsis, ?meningitis Primary Care Physician Adry Olivarez MD Diagnoses: History of Present Illness Patient seen and examined. Records reviewed. Patient is a 57-year-old male, admitted to the hospital for evaluation of worsening slurred speech which started less than an hour prior to admission. Patient has had previous history of CVA, and has underlying right upper extremity paralysis, and left lower extremity weakness. He has mild slurred speech as a result of his prior stroke, but on the day of admission he started having worsening of his dysarthria. There was mention that he has not been healed recently. He denies any headache, respiratory complaint,. There's been no mention that he has had any fever or chills, neck pain, or any GI problem. CT of the head showed previous stroke. He had a neck CTA, and head CTA, which did not show any evidence of significant stenosis. MRI of the brain showed evidence of acute stroke in the right coated nucleus. Today patient had an episode of rigidity and ? posturing, and he ended up getting intubated. I discussed the case with Dr. Joseph the reagent tender, and during this whole episode patient was apparently awake. He was complaining of some pain in the perineum. Patient had urinary retention, and had placement of a Zimmerman catheter. He has not been febrile since admission. His WBC is normal. His chest x-ray showing a left days infiltrate. Infectious disease consultation is requested for possible sepsis, question meningitis. Review of Systems ROS Limitations: Clinical Condition, Intubated Past Family Social History Allergies: Coded Allergies: No Known Allergies (Verified , 03/19/17) Past Medical History Anxiety Arthritis CVA last Aug 2016 HTN Past Surgical History Hernia repair Active Ordered Medications Baclofen Fentanyl Diprivan Versed Labetalol Lopressor Potassium Magnesium Pepcid [place]Colace Plavix Lisinopril Zoloft Pravachol Tylenol Zofran Albuterol Heparin MOM Sen[place]ot Dulcolax Lactulose [place] Keppra Family History Non-contributory to current ID problem Social History Smoking (+) Occasional ETOH No illicit drug use Physical Exam Vital Signs Vital Signs Date Time Temp Pulse Resp B/P Pulse Ox O2 Delivery O2 Flow Rate FiO2 03/20/17 13:35 100 100 03/20/17 12:00 98.5 112 18 131/70 96 03/20/17 09:37 100 Nasal Cannula 2.00 03/20/17 08:00 98.2 101 16 143/95 96 03/20/17 07:00 95 Room Air 03/20/17 06:00 100 03/20/17 04:00 100 03/20/17 04:00 97.7 112 20 113/66 98 03/20/17 02:30 97.7 107 21 126/76 97 03/20/17 02:12 117 18 154/92 96 03/20/17 02:00 110 03/20/17 00:17 96 18 150/84 97 Room Air 03/19/17 23:02 22 149/84 99 Room Air 03/19/17 21:50 101 18 141/84 97 Room Air 03/19/17 20:30 108 18 128/78 96 Room Air 03/19/17 19:30 118 18 136/85 96 Room Air 03/19/17 19:19 124 20 127/81 96 Room Air 03/19/17 19:07 113 20 127/81 97 Room Air 03/19/17 19:01 100 Room Air 03/19/17 19:01 117 20 172/99 100 Room Air 03/19/17 18:42 100 Room Air 03/19/17 18:29 98 Nasal Cannula 2.00 03/19/17 18:29 98 2.00 03/19/17 18:19 98.6 132 22 169/112 97 Physical Exam GENERAL: Patient is a well-nourished, well-developed CM, sedated and intubated, not in respiratory distress. SKIN: Cool and dry. No generalized rash, no ecchymoses and no evidence of embolic lesions. HEAD: Atraumatic. Normocephalic. No temporal wasting, or tenderness. EYES: [place] conjunctiva. No petechia or hemorrhage. Pupils equal, round and reactive to light. No scleral icterus. No injection or drainage. EARS, NOSE AND THROAT: Nose without bleeding or purulent nasal discharge. Endotracheal tube is in the mouth. NECK: Trachea midline. Supple and not tender, no meningeal signs. No new crit rigidity. CARDIOVASCULAR: Audible heart sounds, limited exam due to the coarse rhonchi bilaterally. RESPIRATORY: Bilateral coarse rhonchi, breath sounds equal bilaterally. ABDOMEN: Soft, nondistended, bowel sounds present and normoactive. No reaction to deep palpation. No guarding. No organomegaly. EXTREMITIES: No clubbing, cyanosis, or edema. No joint effusion. Warm feet. NEUROLOGICAL: Sedated, no Babinski, no ankle clonus. Pupils equal and reactive to light PSYCHIATRIC: Unable to assess LINE: No evidence of infection : Zimmerman in place, urine looks clear Laboratory Laboratory Tests Test 03/19/17 03/19/17 03/19/17 03/20/17 18:30 18:45 20:25 00:10 Prothrombin Time 11.4 Prothromb Time International 1.0 Ratio Activated Partial 30.8 Thromboplast Time Fibrinogen 579 White Blood Count 10.4 Red Blood Count 4.82 Hemoglobin 13.7 Bedside Hemoglobin 13.9 Hematocrit 41.4 Bedside Hematocrit 41.0 Mean Corpuscular Volume 85.8 Mean Corpuscular Hemoglobin 28.5 Mean Corpuscular Hemoglobin 33.2 Concent Red Cell Distribution Width 13.1 Platelet Count 464 Mean Platelet Volume 8.1 Neutrophils (%) (Auto) 62.9 Lymphocytes (%) (Auto) 27.1 Monocytes (%) (Auto) 7.1 Eosinophils (%) (Auto) 2.1 Basophils (%) (Auto) 0.8 Neutrophils # (Auto) 6.5 Lymphocytes # (Auto) 2.8 Monocytes # (Auto) 0.7 Eosinophils # (Auto) 0.2 Basophils # (Auto) 0.1 CBC Comment DIFF FINAL Differential Comment Bedside Sodium 135 Bedside Potassium 4.1 Bedside Chloride 99 Bedside Blood Urea Nitrogen 8 Bedside Creatinine 0.7 Bedside Glucose 112 Total Creatine Kinase 73 Troponin I LESS THAN 0.02 Blood Type A POSITIVE Antibody Screen NEGATIVE Blood Bank Comment Lactic Acid Level 3.1 2.1 Test 03/20/17 03/20/17 03/20/17 03/20/17 02:30 04:59 06:00 10:14 Nasal Screen MRSA (PCR) MRSA NOT DETECTED White Blood Count 9.9 Red Blood Count 4.14 Hemoglobin 11.8 Hematocrit 35.7 Mean Corpuscular Volume 86.3 Mean Corpuscular Hemoglobin 28.6 Mean Corpuscular Hemoglobin 33.1 Concent Red Cell Distribution Width 12.9 Platelet Count 419 Mean Platelet Volume 7.9 Neutrophils (%) (Auto) 68.0 Lymphocytes (%) (Auto) 22.9 Monocytes (%) (Auto) 7.2 Eosinophils (%) (Auto) 0.4 Basophils (%) (Auto) 1.5 Neutrophils # (Auto) 6.7 Lymphocytes # (Auto) 2.3 Monocytes # (Auto) 0.7 Eosinophils # (Auto) 0.0 Basophils # (Auto) 0.1 CBC Comment DIFF FINAL Differential Comment Sodium Level 140 Potassium Level 3.6 Chloride Level 107 Carbon Dioxide Level 23.6 Anion Gap 9 Blood Urea Nitrogen 7 Creatinine 0.66 Estimat Glomerular Filtration 124 Rate Random Glucose 111 Calcium Level 8.9 Phosphorus Level 2.0 Magnesium Level 1.9 Total Bilirubin 0.2 Aspartate Amino Transf 18 (AST/SGOT) Alanine Aminotransferase 27 (ALT/SGPT) Alkaline Phosphatase 172 Total Creatine Kinase 170 Creatine Kinase MB 1.2 Troponin I LESS THAN 0.02 Total Protein 7.2 Albumin 3.2 Urine Color YELLOW Urine Turbidity CLEAR Urine pH 7.5 Urine Specific Loiza 1.030 Urine Protein NEG Urine Glucose (UA) NEG Urine Ketones NEG Urine Occult Blood NEG Urine Nitrite NEG Urine Bilirubin NEG Urine Urobilinogen LESS THAN 2.0 Urine Leukocyte Esterase NEG Urine WBC 1 Microscopic Urinalysis Comment CULT NOT INDICATED Urine Opiates Screen NEG Urine Barbiturates Screen NEG Urine Amphetamines Screen NEG Urine Benzodiazepines Screen NEG Urine Cocaine Screen NEG Urine Cannabinoids Screen POS Blood Gas Puncture Site LT RADIAL Blood Gas Patient Temperature 98.6 Blood Gas HCO3 22 Blood Gas Base Excess -2.4 Blood Gas Oxygen Saturation 96 Arterial Blood pH 7.40 Arterial Blood Partial 36 Pressure CO2 Arterial Blood Partial 110 Pressure O2 Arterial Blood Oxygen Content 17.0 Arterial Blood 1.0 Carboxyhemoglobin Arterial Blood Methemoglobin 1.1 Blood Gas Hemoglobin 12.5 Oxygen Delivery Device NASAL CANNULA Blood Gas Liter Flow 2 Blood Gas Inspired Oxygen 28 Test 03/20/17 14:19 Phosphorus Level 3.1 Ammonia 43 Triglycerides Level 181 Cholesterol Level 194 LDL Cholesterol 124 HDL Cholesterol 33.4 Cholesterol/HDL Ratio 5.80 Date/Time Procedure Status Source Growth 03/20/17 11:15 Urine Culture Received Urine Catheterized Urine Pending 03/19/17 23:05 Aerobic Blood Culture - Preliminary Resulted Blood Peripheral NO GROWTH IN 1 DAY 03/19/17 23:05 Anaerobic Blood Culture - Preliminary Resulted Blood Peripheral NO GROWTH IN 1 DAY Result Diagram: 03/20/17 0459 03/20/17 0459 Imaging RADIOLOGY STUDIES/FILMS REVIEWED Chest X-Ray 03/20/17 Signed Impressions: Service Date/Time: Monday, March 20, 2017 14:31 - CONCLUSION: Endotracheal tube. Left lower lobe infiltrate. Wiliam Santizo Jr., MD Brain MRI 03/20/17 Signed Impressions: Service Date/Time: Monday, March 20, 2017 12:12 - CONCLUSION: 1. There is an area of acute cortical infarct involving the caudate nucleus on the right. 2. Old infarct involving the caudate on the left. 3. Limited exam due to motion artifact Adolph Pepe MD Neck CTA 03/19/17 Signed Impressions: Service Date/Time: Sunday, March 19, 2017 20:09 - CONCLUSION: Atherosclerotic plaque without a hemodynamically significant stenosis involving either carotid artery or vertebral artery. Wiliam Santizo Jr., MD Head CTA 03/19/17 Signed Impressions: Service Date/Time: Sunday, March 19, 2017 20:09 - CONCLUSION: 1. Diffuse atherosclerotic plaque without a hemodynamically significant stenosis. Wiliam Santizo Jr., MD Head CT 03/19/17 Signed Impressions: Service Date/Time: Sunday, March 19, 2017 18:30 - CONCLUSION: 1. No acute intracranial abnormality. 2. Areas of chronic lacunar infarction as detailed above. Wiliam Santizo Jr., MD Assessment and Plan Assessment and Plan IMPRESSION Acute CVA, ?seizure, posturing - recurrent CVA, ? hypercoagulable, ?emboli - previous work-up only had TTE Clinically does not have usual picture of meningitis, and neurological symptoms more consistent with acute CVA L base infiltrate, possible aspiration PNA Urinary retention Hypertension RECOMMENDATION Obtain C/S: sputum, BC and repeat UA and C/S (especially since he had retention) IV Rocephin empirically for PNA Neurology evaluating patient Follow C/S Monitor progress I will follow along with you Thank you for this consultation Discussed Condition With D/W Dr Joseph (CCM) D/W Dr Gonzalez (Neurology) D/W Dara Smith MD Mar 20, 2017 16:16
[2017-03-20] MEDS: cefTRIAXone INJ 2,000 MG in SODIUM CHLORIDE 0.9% INJ 100 ML IV SCH (16:56)
[2017-03-20] MEDS: RESP: ALBUTEROL 2.5 MG/IPRATROPIUM 0.5 MG NEB (SCH) NEB (20:06)
[2017-03-20] MEDS: ATORVASTATIN 10 MG TAB PO SCH (20:12)
[2017-03-20] MEDS: CHLORHEXIDINE 0.12% (ORAL KIT) 15 ML CUP MT SCH (20:12)
[2017-03-20] MEDS: BACLOFEN 10 MG TAB PO SCH (20:12)
[2017-03-20] MEDS: INSULIN ASPART SUPPLEMENTAL SCALE SQ SCH (20:55)
[2017-03-20] MEDS: SODIUM CHLORIDE 0.9% FLUSH 5 ML FLUSH IV FLUSH SCH (20:55)
[2017-03-21] VITALS (20 sets, daily range): BP systolic 91–140; BP diastolic 57–86; PULSE 88–130; RESP 14–22; TEMP 98.3–99.3; O2SAT 98–100
[2017-03-21] MEDS: HEPARIN SODIUM - SQ 10,000 UNITS/ML VIAL SQ SCH ×2 (00:08→11:07)
[2017-03-21] MEDS: CHLORHEXIDINE GLUCONATE 2 % 1 PACK (2 CLOTHS) TOP SCH (02:57)
[2017-03-21 04:24] LABS: AUTOMATED NEUTROPHIL # 11.3 TH/MM3 (1.8-7.7); BASOPHIL # 0.1 TH/MM3 (0-0.2); BASOPHIL % 0.6 % (0.0-2.0); EOSINOPHIL % 0.1 % (0.0-4.0); HEMO FLAGS DIFF FINAL; LYMPHOCYTE # 1.8 TH/MM3 (1.0-4.8); MEAN CELL VOLUME 86.4 FL (80.0-100.0); MEAN CORPUSCULAR HEMOGLOBIN 29.2 PG (27.0-34.0); MEAN CORPUSCULAR HGB CONC 33.8 % (32.0-36.0); MONO % 5.7 % (0.0-8.0); NEUT % 80.6 % (16.0-70.0); PLATELET COUNT 431 TH/MM3 (150-450); RED BLOOD COUNT 4.05 MIL/MM3 (4.50-5.90)
[2017-03-21 04:33] LABS: PROTHROMBIN TIME - PATIENT 11.3 SEC (9.8-11.6)
[2017-03-21 04:45] LABS: ANION GAP 13 MEQ/L (5-15); AST (GOT) 19 U/L (15-37); BICARBONATE 19.9 MEQ/L (21.0-32.0); BLOOD UREA NITROGEN 6 MG/DL (7-18); CHLORIDE 102 MEQ/L (98-107); GLOMERULAR FILTRATION RATE 175 ML/MIN (>89); MAGNESIUM 1.8 MG/DL (1.5-2.5); POTASSIUM 3.1 MEQ/L (3.5-5.1); SODIUM (NA) 135 MEQ/L (136-145)
[2017-03-21 04:46] LABS: ALT (GPT) 23 U/L (12-78)
[2017-03-21 04:48] LABS: ALKALINE PHOSPHATASE 164 U/L (45-117); TOTAL BILIRUBIN ADULT 0.3 MG/DL (0.2-1.0)
[2017-03-21] MEDS: fentaNYL DRIP 250 ML IV SCH (05:09)
[2017-03-21] MEDS: POTASSIUM CHLOR 20 MEQ PREMIX 100 ML IV PRN ×2 (05:10→07:51)
--- NOTE | 2017-03-21 05:34 | MB ---
cc: SAMANTHA PARSON M.D. DATE OF CONSULTATION 03/20/2017 REASON FOR CONSULTATION Stroke. HISTORY OF PRESENT ILLNESS Mr. Croft is a 57-year-old man who has had two previous strokes. In August of 2016 he had a left MCA distribution stroke. Shortly before arrival last night he developed sudden onset of slurred speech. Apparently he has residual right upper extremity weakness and left leg weakness from his previous strokes. He had no new weakness but just significant slurred speech. He came in as a Stroke Alert last night. Dr. Bailey discussed the case with the ER physician and ordered a CT angiogram of the neck which showed no significant stenosis. CT angiogram of the head showed diffuse plaquing without any significant stenosis. CT of the brain at the time showed chronic lacunar infarctions with no acute change present. The patient was not felt to be a candidate for t-PA. The patient has been intubated for airway protection. He did have an MRI of the brain done today which showed evidence of an acute stroke in the right caudate nucleus; no hemorrhage present. PAST MEDICAL HISTORY 1. Remarkable for two previous strokes. 2. GERD. 3. Hernia repair surgery. MEDICATIONS His medications upon admission were - 1. Plavix 75 mg daily. 2. Hydrocodone for pain. 3. Lisinopril 5 mg daily. 4. Simvastatin 80 mg daily. 5. Zoloft 50 daily. 6. Baclofen 20 mg h.s. NEUROLOGIC EXAMINATION GENERAL: The patient is currently intubated and sedated. VITAL SIGNS: Blood pressure 131/70, pulse is 112, respirations 18, temperature 98 degrees. NEUROLOGICAL EXAMINATION: Higher cortical functions: He is sedated, does not follow commands. Cranial nerves: The pupils are 1 mm, symmetrical, reactive. Extraocular muscles intact. There is no gross facial asymmetry. On motor examination he moves the right arm more than the left. The left arm does not withdraw. He withdraws the right leg to painful stimuli, does not withdraw the left leg. Reflexes are symmetric. He does have a Babinski on the right but not on the left. LABORATORY DATA White count is 9,900, hemoglobin 11.8, hematocrit 35.7%, platelet count 419,000. Sodium is 140, potassium 3.6, chloride 107, CO2 23.6, the BUN is 7, creatinine 0.66, GFR is 124, glucose 111. His triglycerides are 181, cholesterol 194, LDL 124, HDL 33.4. IMPRESSION 1. Acute right basal ganglia stroke. 2. History of previous strokes x 2 in the past. According to the history, the patient did have a SALLIE in the past with no sign of patent foramen ovale. It is unclear as to the etiology of the strokes. He is currently in sinus rhythm on his EKG. RECOMMENDATIONS 1. Would recommend checking labs to rule out hypercoagulable state including lupus anticoagulant, anticardiolipin antibodies, protein S, protein C, antithrombin III, Leiden Factor V, gene mutation. 2. For now would continue on Plavix. 3. May need to consider anticoagulation. 4. Continue to monitor cardiac telemetry. Rule out A-fib. 5. Also recommend statin given the elevated LDL. MD BRIANNA Reynoso/SOLOMON /4:05 PM /5:22 AM
[2017-03-21] MEDS: INSULIN ASPART SUPPLEMENTAL SCALE SQ SCH ×4 (06:50→21:00)
[2017-03-21] MEDS: PROPOFOL 1000 MG/100 ML INJ 100 ML IV SCH (06:50)
[2017-03-21] MEDS: SODIUM CHLORIDE 0.9% FLUSH 10 ML FLUSH SCH ×2 (07:49→20:01)
[2017-03-21] MEDS: SODIUM CHLORIDE 0.9% FLUSH 5 ML FLUSH IV FLUSH SCH ×2 (07:50→20:01)
[2017-03-21] MEDS: RESP: ALBUTEROL 2.5 MG/IPRATROPIUM 0.5 MG NEB (SCH) NEB ×3 (08:31→19:31)
[2017-03-21] MEDS: CLOPIDOGREL 75 MG TAB PO SCH (09:00)
[2017-03-21] MEDS ORDERED: CLOPIDOGREL 75 MG TAB PO SCH (09:00)
[2017-03-21] MEDS: LISINOPRIL 5 MG TAB PO SCH ×2 (09:00→09:59)
--- NOTE | 2017-03-21 09:55 | RADRPT ---
EXAM DATE/TIME: 03/21/2017 09:13 [facility] COMPARISON: CTA BRAIN W 3D RECON, March 19, 2017, 20:09. INDICATIONS : Abdomen pain ORAL CONTRAST: No oral contrast ingested. RADIATION DOSE: 9.96 CTDIvol (mGy) MEDICAL HISTORY : Cardiovascular disease. Hypertension. Hernia, hiatal. SURGICAL HISTORY : None. ENCOUNTER: Initial ACUITY: 1 day PAIN SCALE: Non-responsive LOCATION: abdomen TECHNIQUE: Volumetric scanning of the abdomen and pelvis was performed. Using automated exposure control and ad justment of the mA and/or kV according to patient size, radiation dose was kept as low as reasonably achievable to obtain optimal diagnostic quality images. DICOM format image data is available electro nically for review and comparison. FINDINGS: Imaging through the lung bases demonstrates minimal areas of atelectasis. There are minimal by basila r effusion. The heart is normal in size. Air graft the appearance of the liver, spleen, pancreas, adr enal glands and kidneys are intact. The visualized loops of small and large bowel are normal in caliber. The abdominal aorta is normal in caliber. There is no retroperitoneal lymphadenopathy. No free air or free fluid is identified within the abdomen or pelvis. The visualized loops of small and large bowel within the pelvis are unremarkable. There is oral contr ast which is vascular the colon and down to the level the rectum. Note is made of a Zimmerman catheter wi thin the bladder. No iliac or inguinal adenopathy is present. The visualized bony structures demonstrate some mild degenerative changes in the thoracic spine but a re otherwise intact. CONCLUSION: 1. Negative CT scan of the abdomen and pelvis. Adolph Pepe MD on March 21, 2017 at 9:50 Board Certified Radiologist. This report was verified electronically.
[2017-03-21] MEDS: ARTIFICIAL TEARS OPTH SOLN 15 ML BTL EACH EYE SCH ×3 (09:58→17:33)
[2017-03-21] MEDS: levETIRAcetam INJ 500 MG in SODIUM CHLORIDE 0.9% INJ 100 ML IV SCH ×2 (09:58→20:54)
[2017-03-21] MEDS: CHLORHEXIDINE 0.12% (ORAL KIT) 15 ML CUP MT SCH ×2 (09:58→20:01)
[2017-03-21] MEDS: PRAVASTATIN SOD 80 MG TAB PO SCH (09:59)
[2017-03-21] MEDS: DOCUSATE SODIUM 50 MG/SENNA 8.6 MG TAB PO SCH ×2 (09:59→20:54)
[2017-03-21] MEDS: SERTRALINE HCL 50 MG TAB PO SCH (09:59)
[2017-03-21] MEDS: FAMOTIDINE 20 MG/2 ML VIAL IV PUSH SCH ×2 (09:59→20:54)
--- NOTE | 2017-03-21 10:37 | HHI.IDPN ---
Subjective Subjective Remarks Patient is a 57-year-old male, admitted to the hospital for evaluation of worsening slurred speech which started less than an hour prior to admission. Patient has had previous history of CVA, and has underlying right upper extremity paralysis, and left lower extremity weakness. He has mild slurred speech as a result of his prior stroke, but on the day of admission he started having worsening of his dysarthria. There was mention that he has not been healed recently. He denies any headache, respiratory complaint,. There's been no mention that he has had any fever or chills, neck pain, or any GI problem. CT of the head showed previous stroke. He had a neck CTA, and head CTA, which did not show any evidence of significant stenosis. MRI of the brain showed evidence of acute stroke in the right coated nucleus. Today patient had an episode of rigidity and ? posturing, and he ended up getting intubated. I discussed the case with Dr. Joseph the front end ui developer, and during this whole episode patient was apparently awake. He was complaining of some pain in the perineum. Patient had urinary retention, and had placement of a Zimmerman catheter. He has not been febrile since admission. His WBC is normal. His chest x-ray showing a left days infiltrate. Notes reviewed D/W RN Temps 99+ Got tachycardic when sedation decreased On the vent BP ok Has one (+) BC with Coag Neg Staph Antibiotics Rocephin Lines PIV Past Medical History Anxiety Arthritis CVA last Aug 2016 HTN Past Surgical History Hernia repair Allergies: Coded Allergies: No Known Allergies (Verified , 03/19/17) Objective . Vital Signs Date Time Temp Pulse Resp B/P Pulse Ox O2 Delivery O2 Flow Rate FiO2 03/21/17 09:00 100 03/21/17 08:31 100 40 03/21/17 08:00 101 03/21/17 08:00 40 03/21/17 08:00 98.6 101 16 121/76 100 03/21/17 06:00 96 03/21/17 04:16 100 50 03/21/17 04:00 113 03/21/17 04:00 50 03/21/17 04:00 99.3 113 22 137/86 100 03/21/17 02:00 97 03/21/17 00:46 100 50 03/21/17 00:00 50 03/21/17 00:00 95 03/21/17 00:00 98.8 95 17 125/79 100 03/20/17 22:00 95 03/20/17 20:00 50 03/20/17 20:00 97.9 96 19 123/82 100 03/20/17 20:00 105 03/20/17 19:58 100 50 03/20/17 18:00 90 03/20/17 16:42 100 50 03/20/17 16:00 98.3 96 17 112/77 100 03/20/17 16:00 96 03/20/17 13:35 100 100 03/20/17 12:00 98.5 112 18 131/70 96 03/20/17 03/20/17 03/21/17 15:00 23:00 07:00 Intake Total 1152 ml 904 ml 786 ml Output Total 350 ml 1550 ml 500 ml Balance 802 ml -646 ml 286 ml Intake IV Total 672 ml 904 ml 786 ml Tube Feeding 480 ml Output Urine Total 350 ml 350 ml 450 ml Stool Total 0 ml Gastric Drainage Total 50 ml Emesis 1200 ml . Laboratory Tests Test 03/19/17 03/20/17 03/21/17 18:45 04:59 03:44 White Blood Count 10.4 TH/MM3 9.9 TH/MM3 14.0 TH/MM3 Red Blood Count 4.82 MIL/MM3 4.14 MIL/MM3 4.05 MIL/MM3 Hemoglobin 13.7 GM/DL 11.8 GM/DL 11.8 GM/DL Bedside Hemoglobin 13.9 G/DL Hematocrit 41.4 % 35.7 % 35.0 % Bedside Hematocrit 41.0 % Mean Corpuscular Volume 85.8 FL 86.3 FL 86.4 FL Mean Corpuscular Hemoglobin 28.5 PG 28.6 PG 29.2 PG Mean Corpuscular Hemoglobin 33.2 % 33.1 % 33.8 % Concent Red Cell Distribution Width 13.1 % 12.9 % 13.0 % Platelet Count 464 TH/MM3 419 TH/MM3 431 TH/MM3 Mean Platelet Volume 8.1 FL 7.9 FL 8.5 FL Neutrophils (%) (Auto) 62.9 % 68.0 % 80.6 % Lymphocytes (%) (Auto) 27.1 % 22.9 % 13.0 % Monocytes (%) (Auto) 7.1 % 7.2 % 5.7 % Eosinophils (%) (Auto) 2.1 % 0.4 % 0.1 % Basophils (%) (Auto) 0.8 % 1.5 % 0.6 % Neutrophils # (Auto) 6.5 TH/MM3 6.7 TH/MM3 11.3 TH/MM3 Lymphocytes # (Auto) 2.8 TH/MM3 2.3 TH/MM3 1.8 TH/MM3 Monocytes # (Auto) 0.7 TH/MM3 0.7 TH/MM3 0.8 TH/MM3 Eosinophils # (Auto) 0.2 TH/MM3 0.0 TH/MM3 0.0 TH/MM3 Basophils # (Auto) 0.1 TH/MM3 0.1 TH/MM3 0.1 TH/MM3 CBC Comment DIFF FINAL DIFF FINAL DIFF FINAL Differential Comment Laboratory Tests Test 03/19/17 03/19/17 03/20/17 03/20/17 18:45 20:25 00:10 04:59 Bedside Sodium 135 MMOL/L Bedside Potassium 4.1 MMOL/L Bedside Chloride 99 MMOL/L Bedside Blood Urea Nitrogen 8 MG/DL Bedside Creatinine 0.7 MG/DL Bedside Glucose 112 MG/DL Total Creatine Kinase 73 U/L 170 U/L Troponin I LESS THAN 0.02 LESS THAN 0.02 NG/ML NG/ML Lactic Acid Level 3.1 mmol/L 2.1 mmol/L Sodium Level 140 MEQ/L Potassium Level 3.6 MEQ/L Chloride Level 107 MEQ/L Carbon Dioxide Level 23.6 MEQ/L Anion Gap 9 MEQ/L Blood Urea Nitrogen 7 MG/DL Creatinine 0.66 MG/DL Estimat Glomerular Filtration 124 ML/MIN Rate Random Glucose 111 MG/DL Calcium Level 8.9 MG/DL Phosphorus Level 2.0 MG/DL Magnesium Level 1.9 MG/DL Total Bilirubin 0.2 MG/DL Aspartate Amino Transf 18 U/L (AST/SGOT) Alanine Aminotransferase 27 U/L (ALT/SGPT) Alkaline Phosphatase 172 U/L Creatine Kinase MB 1.2 NG/ML Total Protein 7.2 GM/DL Albumin 3.2 GM/DL Test 03/20/17 03/21/17 14:19 03:30 Phosphorus Level 3.1 MG/DL 2.9 MG/DL Ammonia 43 MCMOL/L Triglycerides Level 181 MG/DL Cholesterol Level 194 MG/DL LDL Cholesterol 124 MG/DL HDL Cholesterol 33.4 MG/DL Cholesterol/HDL Ratio 5.80 RATIO Sodium Level 135 MEQ/L Potassium Level 3.1 MEQ/L Chloride Level 102 MEQ/L Carbon Dioxide Level 19.9 MEQ/L Anion Gap 13 MEQ/L Blood Urea Nitrogen 6 MG/DL Creatinine 0.49 MG/DL Estimat Glomerular Filtration 175 ML/MIN Rate Random Glucose 109 MG/DL Calcium Level 9.1 MG/DL Magnesium Level 1.8 MG/DL Total Bilirubin 0.3 MG/DL Aspartate Amino Transf 19 U/L (AST/SGOT) Alanine Aminotransferase 23 U/L (ALT/SGPT) Alkaline Phosphatase 164 U/L Total Protein 7.1 GM/DL Albumin 3.2 GM/DL Microbiology Date/Time Procedure Status Source Growth 03/19/17 23:05 Aerobic Blood Culture - Preliminary Resulted Blood Peripheral Gram Positive Cocci 03/19/17 23:05 Anaerobic Blood Culture - Preliminary Resulted Gram Positive Cocci 03/19/17 23:05 Aerobic Blood Culture - Preliminary Resulted Blood Peripheral NO GROWTH IN 1 DAY 03/19/17 23:05 Anaerobic Blood Culture - Preliminary Resulted Blood Peripheral NO GROWTH IN 1 DAY 03/20/17 11:15 Urine Culture Received Urine Catheterized Urine Pending 03/20/17 16:00 Gram Stain - Final Resulted Sputum Endotracheal 03/20/17 16:00 Sputum Culture Resulted Sputum Endotracheal Pending 03/21/17 03:30 Aerobic Blood Culture Received Blood Peripheral Pending 03/21/17 03:30 Anaerobic Blood Culture Received Blood Peripheral Pending 03/21/17 03:44 Aerobic Blood Culture Received Blood Peripheral Pending 03/21/17 03:44 Anaerobic Blood Culture Received Blood Peripheral Pending Imaging Chest X-Ray 03/20/17 0000 Signed Impressions: Service Date/Time: Monday, March 20, 2017 14:31 - CONCLUSION: Endotracheal tube. Left lower lobe infiltrate. Wiliam Santizo Jr., MD Brain MRI 03/20/17 0000 Signed Impressions: Service Date/Time: Monday, March 20, 2017 12:12 - CONCLUSION: 1. There is an area of acute cortical infarct involving the caudate nucleus on the right. 2. Old infarct involving the caudate on the left. 3. Limited exam due to motion artifact Adolph Pepe MD Abdomen/Pelvis CT 03/20/17 0000 Signed Impressions: Service Date/Time: March 09:13 - CONCLUSION: 1. Negative CT scan of the abdomen and pelvis. Adolph Pepe MD Neck CTA 03/19/17 0000 Signed Impressions: Service Date/Time: Sunday, March 19, 2017 20:09 - CONCLUSION: Atherosclerotic plaque without a hemodynamically significant stenosis involving either carotid artery or vertebral artery. Wiliam Santizo Jr., MD Head CTA 03/19/17 Signed Impressions: Service Date/Time: Sunday, March 19, 2017 20:09 - CONCLUSION: 1. Diffuse atherosclerotic plaque without a hemodynamically significant stenosis. Wiliam Santizo Jr., MD Head CT 03/19/17 Signed Impressions: Service Date/Time: Sunday, March 19, 2017 18:30 - CONCLUSION: 1. No acute intracranial abnormality. 2. Areas of chronic lacunar infarction as detailed above. Wiliam Santizo Jr., MD Physical Exam GENERAL: sedated and intubated, not in respiratory distress. SKIN: Cool and dry. No generalized rash, no ecchymoses and no evidence of embolic lesions. HEAD: Atraumatic. Normocephalic. No temporal wasting, or tenderness. EYES: Adwolf conjunctiva. No petechia or hemorrhage. Pupils equal, round and reactive to light. No scleral icterus. No injection or drainage. EARS, NOSE AND THROAT: Nose without bleeding or purulent nasal discharge. Endotracheal tube is in the mouth. NECK: Trachea midline. Supple and not tender, no meningeal signs. No new crit rigidity. CARDIOVASCULAR: Audible heart sounds, limited exam due to the coarse rhonchi bilaterally. RESPIRATORY: Bilateral coarse rhonchi, breath sounds equal bilaterally. ABDOMEN: Soft, nondistended, bowel sounds present and normoactive. No reaction to deep palpation. No guarding. No organomegaly. EXTREMITIES: No clubbing, cyanosis, or edema. No joint effusion. Warm feet. NEUROLOGICAL: Sedated, No ankle clonus. Pupils equal and reactive to light. RLE more rigid compared to LLE. (+) Babinski on R PSYCHIATRIC: Unable to assess LINE: No evidence of infection : Zimmerman in place, urine looks clear Assessment & Plan Remarks IMPRESSION Acute CVA, ?seizure, posturing - recurrent CVA, ? hypercoagulable, ?emboli - previous work-up only had TTE Clinically does not have usual picture of meningitis, and neurological symptoms more consistent with acute CVA L base infiltrate, possible aspiration PNA Urinary retention Hypertension One (+) BC with Coag Neg Staph possibly a contaminant RECOMMENDATION IV Rocephin empirically for PNA Neurology evaluating patient Follow C/S Monitor progress Will adjust Abx once C/S available D/W Dara Smith MD Mar 21, 2017 10:37
[2017-03-21] MEDS: SODIUM CHLOR 0.9% 1000 ML INJ 1,000 ML IV SCH (11:08)
--- NOTE | 2017-03-21 12:54 | HHI.CCPN ---
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 Per patient's he has right sided upper extremity paralysis and left lower extremity weakness secondary to his stroke. She states he has had some slurred speech but not to the degree that it began 45 minutes ago. Is concerned patient is having a recurrent stroke. He is on Plavix and aspirin at home. Patient denies any headache. No chest or tightness. No difficulty breathing. Patient has not been recently ill. He has been on by mouth baclofen for contractures, however he wasn't able to take those pills for last 24 hours due to difficulty swallowing. Subjective: 03/20; Afebrile. Upon evaluation this a.m., the patient completely aphasic, not responding to any commands. Diaphoretic, and tachycardic. CT brain was negative. Pending MRI this a.m.. Patient has received thus far since admission to the hospital noted Ativan 5 mg in conjunction with 2 mg of morphine in the emergency department. EEG currently underway. Neurology has been consulted. Patient was noted have bladder outlet obstruction previously, Minimal urine output with condom catheter, Zimmerman inserted with slight difficulty now adequate drainage. No seizure activity noted only spasticity at this time, patient continues on baclofen. 03/21: MRI revealed acute right caudate region infarct. Hypercoagulable bowel studies obtained per neurology Dr. Gonzalez, following. Patient previously complained of pelvic pain CT of the abdomen and pelvis results negative. Patient maintaining blood pressure within normal ranges. The patient continues on Plavix. ID consulted, Dr. Peters following. Objective Vital Signs Date Time Temp Pulse Resp B/P Pulse Ox O2 Delivery O2 Flow Rate FiO2 03/21/17 12:01 100 40 03/21/17 12:00 98.3 88 14 91/57 03/20/17 09:37 Nasal Cannula 2.00 Intake and Output 03/20/17 03/20/17 03/21/17 08:00 16:00 00:00 Intake Total 860 ml 1152 ml 904 ml Output Total 150 ml 350 ml 1550 ml Balance 710 ml 802 ml -646 ml Result Diagram: 03/21/17 0344 03/21/17 0330 Other Results Laboratory Tests Test 03/20/17 15:48 Blood Gas Puncture Site LT BRACHIAL Blood Gas Patient Temperature 98.6 Blood Gas HCO3 20 mmol/L (22-26) Blood Gas Base Excess -3.9 mmol/L (-2-2) Blood Gas Oxygen Saturation 96 % (90-100) Arterial Blood pH 7.37 (7.380-7.420) Arterial Blood Partial 36 mmHg (38-42) Pressure CO2 Arterial Blood Partial 101 mmHg Pressure O2 (61-120) Arterial Blood Oxygen Content 17.4 Vol % (12.0-20.0) Arterial Blood 0.8 % (0-4) Carboxyhemoglobin Arterial Blood Methemoglobin 1.1 % (0-2) Blood Gas Hemoglobin 12.8 G/DL (12.0-16.0) Oxygen Delivery Device VENTILATOR Blood Gas Ventilator Setting Blood Gas Inspired Oxygen 50 % Objective Remarks BP 113/72 Pulse 96 O2 saturation 99% GENERAL: Well-nourished male patient, lying in bed, intubated and sedated SKIN: Warm and dry HEAD: Atraumatic. Normocephalic. EYES: Pupils equal and round. No scleral icterus. No injection or drainage. ENT: No nasal bleeding or discharge. Mucous membranes pink and moist. Orotracheally intubated NECK: Trachea midline. No JVD. CARDIOVASCULAR: Telemetry normal rate and rhythm. RESPIRATORY: No accessory muscle use. Clear to auscultation. Breath sounds equal bilaterally. GASTROINTESTINAL: Abdomen soft, non-tender, nondistended. Hepatic and splenic margins not palpable. MUSCULOSKELETAL: Right upper extremity is in a brace. No clubbing. No cyanosis. No edema. NEUROLOGICAL: GCS 3T. Intubated and sedated Urinary Catheter: Yes Zimmerman insert reason: Measure Accurate Output Date of Insertion: Mar 20, 2017 A/P Assessment and Plan Altered mental status with slurred speech Acute infarct - 03/20 F/U MRI brain this am - Seizure prophylaxis- Keppra - [id number] results - Further workup per neurology-Dr. Gonzalez following - Continue aspirin and Plavix -Hold Ativan, and sedative type medications at this time -Follow-up hypercoagulable studies Hypertensive urgency - Lisinopril home medication ( patient unable to take by mouth meds at this time ) -Labetalol 10 mg every 6 hours when necessary for systolic blood pressure greater than 200 mmHG Tachycardia -Metoprolol 2.5 mg every 6 hours pRN for heart rate > 100 -Labetalol 10 mg every 6 hours for systolic blood pressure greater than 160mmHg Spasm post previous CVA x 2 - Continue baclofen Mild protein calorie malnutrition -OGT -Initiate tube feeds follow-up dietary consult Hyperlipidemia -Monitor LFTs -Continue pravastatin DVT GI prophylaxis - Subcutaneous heparin and Pepcid Dispo: Discussed with and POLITICAL SCIENCE FACULTY MEMBER at bedside Critical Care: This patient remains critically ill with one or more organ systems which are or may become a threat to life. I have spent in excess of 30 minutes discontinuously in the care and management of this patient. This time is exclusive of procedures, and includes, but is not limited to, evaluation of the patient, review of the medical record, discussions with family, consultants, nursing staff, or respiratory therapy, and documentation in the medical record. Physician Jessie Dimas MD Mar 21, 2017 12:54
[2017-03-21] MEDS: METOPROLOL TARTRATE 5 MG/5 ML VIAL IV PUSH PRN (14:12)
[2017-03-21] MEDS: cefTRIAXone INJ 2,000 MG in SODIUM CHLORIDE 0.9% INJ 100 ML IV SCH (17:31)
[2017-03-21] MEDS: BACLOFEN 10 MG TAB PO SCH (20:54)
[2017-03-21] MEDS: ATORVASTATIN 10 MG TAB PO SCH (20:54)
--- NOTE | 2017-03-21 21:49 | MG ---
cc: RIKA MANDUJANO Lab No: Date: 03/20/17 Age: 57 Sex: M Race: A 57-year-old acute stroke on the right, old infarct on the left, lethargy, violent behavior, psychiatric problems. MEDICATIONS 1. Ativan. 2. Morphine. Diffuse 7 Hz slowing is noted, in fact a 7 Hz, 60 microvolt symmetric posterior rhythm is seen. A lot of movement artifact is noted. The patient then appears may just fall asleep briefly with some sleep spindles which is synchronous and symmetric. Photic stimulation is performed without significant posterior driving. Hyperventilation is not performed. IMPRESSION Some mild, really minimal diffuse theta slowing consistent with a mild diffuse encephalopathy but no focal abnormality was noted. No seizure activity was seen. No PLEDs are noted. No major abnormality. MD MAURA Tejada/ALEXX /4:39 PM /9:40 PM
--- NOTE | 2017-03-21 22:37 | HHI.PR ---
Review/Management Diagnosis right basal ganglia stroke Plan folloe up echo continue plavix. Diagnosis/Plan: Subjective Subjective Comments No acute events reported Active Medications Current Medications Medications (Trade) Dose Ordered Sig/Ryan Route Start Time Stop Time Status Last Admin (NS 1000 ml Inj) 1,000 ml @ 84 mls/hr [id number] IV 03/19/17 23:36 03/21/17 11:08 (NS Flush) 2 ml UNSCH PRN .XX 03/19/17 23:45 (NS Flush) 2 ml BID .XX 03/20/17 09:00 03/21/17 20:01 (Tylenol) 650 mg Q6H PRN PO 03/19/17 23:45 (Morphine Inj) 2 mg Q2H PRN IV PUSH 03/19/17 23:45 Hold 03/20/17 05:15 (Pepcid Inj) 20 mg Q12HR IV PUSH 03/20/17 09:00 03/21/17 20:54 (Ativan Inj) 1 mg Q1H PRN IV 03/19/17 23:45 Hold 03/20/17 05:15 (Tears Naturale Opth Soln) 1 drop TID EACH EYE 03/20/17 09:00 03/21/17 17:33 (Zofran Inj) 4 mg Q6H PRN IV 03/19/17 23:45 (Heparin Inj) 5,000 units Q12H SQ 03/19/17 23:45 03/21/17 11:07 Miscellaneous Information 1 Q361D XX 03/19/17 23:45 03/19/17 23:45 (Chlorhexidine 2% Cloth) 3 pack Taper DAILY@04 TOP 03/20/17 04:00 03/16/18 03:59 03/21/17 02:57 (Chlorhexidine 2% Cloth) 3 pack UNSCH PRN TOP 03/19/17 23:45 (Edelmira-Colace) 1 tab BID PO 03/20/17 09:00 03/21/17 20:54 (Milk Of Magnesia Liq) 30 ml Q12H PRN PO 03/19/17 23:45 (Senokot) 17.2 mg Q12H PRN PO 03/19/17 23:45 (Dulcolax Supp) 10 mg DAILY PRN RECTAL 03/19/17 23:45 (Lactulose Liq) 30 ml DAILY PRN PO 03/19/17 23:45 (Lioresal) 20 mg HS PO 03/20/17 21:00 03/21/17 20:54 (Plavix) 75 mg DAILY PO 03/20/17 09:00 ([place] 5-325 Mg) 1 tab Q12HR PRN PO 03/19/17 23:45 (Prinivil) 5 mg DAILY PO 03/20/17 09:00 (Preparation H Oint) 1 applic Q6H PRN RECTAL 03/19/17 23:45 (Zoloft) 50 mg DAILY PO 03/20/17 09:00 03/21/17 09:59 Pravastatin Sodium 80 mg 80 mg DAILY PO 03/20/17 09:00 03/21/17 09:59 (Keppra Inj/NS Inj) 105 ml @ 420 mls/hr Q12HR IV 03/19/17 23:45 03/21/17 20:54 Metoprolol Tartrate 2.5 mg 2.5 mg Q6H PRN IV PUSH 03/20/17 10:45 03/21/17 14:12 Potassium Chloride 100 ml @ 50 mls/hr Q2H PRN IV 03/20/17 10:45 (KCl 20 Meq Premix Inj) 100 ml @ 50 mls/hr Q2H PRN IV 03/20/17 10:45 03/21/17 07:51 Potassium Bicarb/ Potassium Chloride 50 meq 50 meq UNSCH PRN PO 03/20/17 10:45 Potassium Chloride 100 ml @ 25 mls/hr UNSCH PRN IV 03/20/17 10:45 Potassium Chloride 100 ml @ 50 mls/hr Q2H PRN IV 03/20/17 10:45 (Magnesium Sulfate Inj/NS Inj) 100 ml @ 50 mls/hr UNSCH PRN IV 03/20/17 10:45 Magnesium Oxide 800 mg 800 mg UNSCH PRN PO 03/20/17 10:45 (Magnesium Sulfate Inj/NS Inj) 100 ml @ 50 mls/hr UNSCH PRN IV 03/20/17 10:45 Potassium Phosphate 2000 mg 2,000 mg Q4H PRN PO 03/20/17 10:45 (Sodium Phosphate Inj/NS 250 ml Inj) 250 ml @ 42 mls/hr UNSCH PRN IV 03/20/17 10:45 Potassium Phosphate 2000 mg 2,000 mg UNSCH PRN PO/TUBE 03/20/17 10:45 (Potassium Phosphate Inj/NS 250 ml Inj) 260 ml @ 42 mls/hr UNSCH PRN IV 03/20/17 10:45 Labetalol HCl 10 mg 10 mg Q6H PRN IV PUSH 03/20/17 11:30 (Diprivan 1000 Mg/100ml Inj) 100 ml @ 0 mls/hr TITRATE IV 03/20/17 13:45 03/21/17 06:50 Chlorhexidine Gluconate 15 ml 15 ml BID@08,20 MT 03/20/17 20:00 03/21/17 20:01 (fentaNYL DRIP) 250 ml @ 0 mls/hr TITRATE IV 03/20/17 14:45 03/21/17 05:09 (NS Flush) 2 ml BID IV FLUSH 03/20/17 21:00 03/21/17 07:50 (NS Flush) 2 ml UNSCH PRN IV FLUSH 03/20/17 16:15 (Lipitor) 10 mg HS PO 03/20/17 21:00 03/21/17 20:54 (NovoLOG SUPPLEMENTAL SCALE) 1 ACHS SQ 03/20/17 21:00 (D50w (Vial) Inj) 50 ml UNSCH PRN IV PUSH 03/20/17 16:15 Glucagon 1 mg 1 mg UNSCH PRN OTHER 03/20/17 16:15 (Rocephin Inj/NS Inj) 100 ml @ 200 mls/hr Q24H IV 03/20/17 17:00 03/21/17 17:31 Allergies Allergies Coded Allergies No Known Allergies (Verified03/19/17) Review of Systems All other ROS: ROS reviewed as documented in chart Exam I&O / VS 03/20/17 03/20/17 03/21/17 15:00 23:00 07:00 Intake Total 1152 ml 904 ml 786 ml Output Total 350 ml 1550 ml 500 ml Balance 802 ml -646 ml 286 ml Intake IV Total 672 ml 904 ml 786 ml Tube Feeding 480 ml Output Urine Total 350 ml 350 ml 450 ml Stool Total 0 ml Gastric Drainage Total 50 ml Emesis 1200 ml Vital Signs Date Time Temp Pulse Resp B/P Pulse Ox O2 Delivery O2 Flow Rate FiO2 03/21/17 20:00 109 03/21/17 20:00 99.3 115 15 140/73 99 03/21/17 20:00 40 03/21/17 19:31 100 40 03/21/17 18:00 102 03/21/17 16:27 98 40 03/21/17 16:00 40 03/21/17 16:00 109 03/21/17 16:00 98.6 109 14 102/63 100 03/21/17 14:00 130 03/21/17 12:01 100 40 03/21/17 12:00 40 03/21/17 12:00 98.3 88 14 91/57 100 03/21/17 12:00 88 03/21/17 10:00 103 03/21/17 09:00 100 03/21/17 08:31 100 40 03/21/17 08:00 101 03/21/17 08:00 40 03/21/17 08:00 98.6 101 16 121/76 100 03/21/17 06:00 96 03/21/17 04:16 100 50 03/21/17 04:00 113 03/21/17 04:00 50 03/21/17 04:00 99.3 113 22 137/86 100 03/21/17 02:00 97 03/21/17 00:46 100 50 03/21/17 00:00 50 03/21/17 00:00 95 03/21/17 00:00 98.8 95 17 125/79 100 General: Alert and Oriented, No acute distress Respiratory: Lungs CTA, Non-labored respirations, BS equal Cardiology: Normal rate, Regular Rhythm Musculoskeletal: Tenderness, Deformity Neurologic: Alert Psychiatric: Cooperative Exam Comments lethargic, follows occasional commands perrl MOTOR--weaker on left Objective Micro and Labs Laboratory Tests Test 03/21/17 03/21/17 03/21/17 03:30 03:44 15:35 Sodium Level 135 Potassium Level 3.1 4.2 Chloride Level 102 Carbon Dioxide Level 19.9 Anion Gap 13 Blood Urea Nitrogen 6 Creatinine 0.49 Estimat Glomerular Filtration 175 Rate Random Glucose 109 Calcium Level 9.1 Phosphorus Level 2.9 Magnesium Level 1.8 Total Bilirubin 0.3 Aspartate Amino Transf 19 (AST/SGOT) Alanine Aminotransferase 23 (ALT/SGPT) Alkaline Phosphatase 164 Total Protein 7.1 Albumin 3.2 White Blood Count 14.0 Red Blood Count 4.05 Hemoglobin 11.8 Hematocrit 35.0 Mean Corpuscular Volume 86.4 Mean Corpuscular Hemoglobin 29.2 Mean Corpuscular Hemoglobin 33.8 Concent Red Cell Distribution Width 13.0 Platelet Count 431 Mean Platelet Volume 8.5 Neutrophils (%) (Auto) 80.6 Lymphocytes (%) (Auto) 13.0 Monocytes (%) (Auto) 5.7 Eosinophils (%) (Auto) 0.1 Basophils (%) (Auto) 0.6 Neutrophils # (Auto) 11.3 Lymphocytes # (Auto) 1.8 Monocytes # (Auto) 0.8 Eosinophils # (Auto) 0.0 Basophils # (Auto) 0.1 CBC Comment DIFF FINAL Differential Comment Prothrombin Time 11.3 Prothromb Time International 1.0 Ratio Procalcitonin 0.06 Date/Time Procedure Status Source Growth 03/21/17 03:44 Aerobic Blood Culture Received Blood Peripheral Pending 03/21/17 03:44 Anaerobic Blood Culture Received Blood Peripheral Pending 03/20/17 16:00 Gram Stain - Final Resulted Sputum Endotracheal 03/20/17 16:00 Sputum Culture - Preliminary Resulted Sputum Endotracheal HEAVY GROWTH NORMAL RESPIRATORY CAROL ANN... 03/20/17 11:15 Urine Culture - Preliminary Resulted Urine Catheterized Urine NO GROWTH IN 24 HOURS. 03/19/17 23:05 Aerobic Blood Culture - Preliminary Resulted Blood Peripheral Staph Sp Coagulase Negative 03/19/17 23:05 Anaerobic Blood Culture - Preliminary Resulted Gram Positive Cocci Marcelino Gonzalez PhD Mar 21, 2017 22:37
[2017-03-22] VITALS (17 sets, daily range): BP systolic 92–124; BP diastolic 29–81; PULSE 81–128; RESP 14–15; TEMP 98.3–98.8; O2SAT 96–100
[2017-03-22] MEDS: SODIUM CHLOR 0.9% 1000 ML INJ 1,000 ML IV SCH ×3 (00:52→22:29)
[2017-03-22] MEDS: HEPARIN SODIUM - SQ 10,000 UNITS/ML VIAL SQ SCH ×3 (00:52→23:06)
[2017-03-22] MEDS: PROPOFOL 1000 MG/100 ML INJ 100 ML IV SCH ×3 (01:57→21:22)
[2017-03-22] MEDS: CHLORHEXIDINE GLUCONATE 2 % 1 PACK (2 CLOTHS) TOP SCH (04:03)
[2017-03-22 04:59] LABS: BLOOD GAS BASE EXCESS -1.4 mmol/L (-2-2); BLOOD GAS CARBOXYHEMOGLOBIN 0.7 % (0-4); BLOOD GAS HCO3 23 mmol/L (22-26); BLOOD GAS METHEMOGLOBIN 0.8 % (0-2); BLOOD GAS O2 HGB SATURATION 98 % (90-100); BLOOD GAS OXYGEN CONTENT 21.4 Vol % (12.0-20.0); BLOOD GAS PCO2 38 mmHg (38-42); BLOOD GAS PO2 165 mmHg (61-120); BLOOD GAS TOTAL HGB 15.4 G/DL (12.0-16.0); TEMP CORR TO 98.6
[2017-03-22 05:00] LABS: CRITICAL VALUE NO; OXYGEN DEVICE VENTILATOR
[2017-03-22 05:01] LABS: DRAW SITE LT RADIAL; FIO2 40 %; NUMBER OF ARTERIAL PUNCTURES 1; STAT NO; VENT SETTINGS PRVC/AC
[2017-03-22 06:49] LABS: HEMATOCRIT 33.3 % (39.0-51.0); MEAN CELL VOLUME 86.3 FL (80.0-100.0); MEAN CORPUSCULAR HEMOGLOBIN 28.5 PG (27.0-34.0); PLATELET COUNT 378 TH/MM3 (150-450); RED BLOOD COUNT 3.86 MIL/MM3 (4.50-5.90); REVIEW FLAG FINAL; WHITE BLOOD COUNT 8.8 TH/MM3 (4.0-11.0)
[2017-03-22] MEDS: INSULIN ASPART SUPPLEMENTAL SCALE SQ SCH ×4 (06:50→21:00)
[2017-03-22 07:13] LABS: BICARBONATE 22.7 MEQ/L (21.0-32.0); MAGNESIUM 1.9 MG/DL (1.5-2.5); POTASSIUM 3.2 MEQ/L (3.5-5.1)
[2017-03-22] MEDS ORDERED: SODIUM CHLORID 0.9% 500 ML INJ 500 ML IV ONE (07:45)
[2017-03-22] MEDS: SODIUM CHLORIDE 0.9% FLUSH 10 ML FLUSH SCH ×2 (07:45→21:23)
[2017-03-22] MEDS: SODIUM CHLORIDE 0.9% FLUSH 5 ML FLUSH IV FLUSH SCH ×2 (07:45→21:00)
[2017-03-22] MEDS: RESP: ALBUTEROL 2.5 MG/IPRATROPIUM 0.5 MG NEB (SCH) NEB ×3 (07:48→20:21)
[2017-03-22] MEDS: ARTIFICIAL TEARS OPTH SOLN 15 ML BTL EACH EYE SCH ×3 (09:00→16:34)
[2017-03-22] MEDS: CHLORHEXIDINE 0.12% (ORAL KIT) 15 ML CUP MT SCH ×2 (09:00→21:23)
[2017-03-22] MEDS: LISINOPRIL 5 MG TAB PO SCH (09:00)
[2017-03-22] MEDS: levETIRAcetam INJ 500 MG in SODIUM CHLORIDE 0.9% INJ 100 ML IV SCH ×2 (09:01→21:22)
[2017-03-22] MEDS: CLOPIDOGREL 75 MG TAB PO SCH (09:01)
[2017-03-22] MEDS: FAMOTIDINE 20 MG/2 ML VIAL IV PUSH SCH ×2 (09:01→21:22)
[2017-03-22] MEDS: PRAVASTATIN SOD 80 MG TAB PO SCH (09:01)
[2017-03-22] MEDS: DOCUSATE SODIUM 50 MG/SENNA 8.6 MG TAB PO SCH ×2 (09:01→21:22)
[2017-03-22] MEDS: SERTRALINE HCL 50 MG TAB PO SCH (09:02)
[2017-03-22] MEDS: POTASSIUM CHLOR 20 MEQ PREMIX 100 ML IV PRN ×2 (09:02→09:03)
[2017-03-22] MEDS: fentaNYL DRIP 250 ML IV SCH (10:58)
--- NOTE | 2017-03-22 13:03 | HHI.IDPN ---
Subjective Subjective Remarks Patient is a 57-year-old male, admitted to the hospital for evaluation of worsening slurred speech which started less than an hour prior to admission. Patient has had previous history of CVA, and has underlying right upper extremity paralysis, and left lower extremity weakness. He has mild slurred speech as a result of his prior stroke, but on the day of admission he started having worsening of his dysarthria. There was mention that he has not been healed recently. He denies any headache, respiratory complaint,. There's been no mention that he has had any fever or chills, neck pain, or any GI problem. CT of the head showed previous stroke. He had a neck CTA, and head CTA, which did not show any evidence of significant stenosis. MRI of the brain showed evidence of acute stroke in the right coated nucleus. Today patient had an episode of rigidity and ? posturing, and he ended up getting intubated. I discussed the case with Dr. Joseph the lime sludge kiln operator, and during this whole episode patient was apparently awake. He was complaining of some pain in the perineum. Patient had urinary retention, and had placement of a Zimmerman catheter. He has not been febrile since admission. His WBC is normal. His chest x-ray showing a left days infiltrate. Notes reviewed D/W RN Temps ok BP ok Sedation plant hr manager, wakes up Tolerating TF Got tachycardic when sedation decreased On the vent Has one (+) BC with Coag Neg Staph No new (+) BC Sputum with normal resp jazz WBC down to normal Antibiotics Rocephin Lines PIV Past Medical History Anxiety Arthritis CVA last Aug 2016 HTN Past Surgical History Hernia repair Allergies: Coded Allergies: No Known Allergies (Verified , 03/19/17) Objective . Vital Signs Date Time Temp Pulse Resp B/P Pulse Ox O2 Delivery O2 Flow Rate FiO2 03/22/17 10:00 93 03/22/17 08:00 40 03/22/17 08:00 98.7 111 15 124/68 99 03/22/17 08:00 111 03/22/17 07:48 99 35 03/22/17 06:00 128 03/22/17 04:00 107 03/22/17 04:00 98.5 85 14 122/81 100 03/22/17 04:00 40 03/22/17 03:31 100 40 03/22/17 02:00 107 03/22/17 00:00 98.4 94 15 105/51 100 03/22/17 00:00 40 03/22/17 00:00 94 03/21/17 23:28 99 40 03/21/17 22:00 124 03/21/17 20:00 109 03/21/17 20:00 99.3 115 15 140/73 99 03/21/17 20:00 40 03/21/17 19:31 100 40 03/21/17 18:00 102 03/21/17 16:27 98 40 03/21/17 16:00 40 03/21/17 16:00 109 03/21/17 16:00 98.6 109 14 102/63 100 03/21/17 14:00 130 03/21/17 03/21/17 03/22/17 14:59 22:59 06:59 Intake Total 588 ml 1072 ml 962 ml Output Total 700 ml 225 ml 200 ml Balance -112 ml 847 ml 762 ml Intake IV Total 588 ml 917 ml 724 ml Tube Feeding 115 ml 238 ml Other 40 ml Output Urine Total 450 ml 225 ml 200 ml Stool Total 0 ml 0 ml 0 ml Gastric Drainage Total 250 ml . Laboratory Tests Test 03/21/17 03/22/17 03:44 06:04 White Blood Count 14.0 TH/MM3 8.8 TH/MM3 Red Blood Count 4.05 MIL/MM3 3.86 MIL/MM3 Hemoglobin 11.8 GM/DL 11.0 GM/DL Hematocrit 35.0 % 33.3 % Mean Corpuscular Volume 86.4 FL 86.3 FL Mean Corpuscular Hemoglobin 29.2 PG 28.5 PG Mean Corpuscular Hemoglobin 33.8 % 33.0 % Concent Red Cell Distribution Width 13.0 % 13.0 % Platelet Count 431 TH/MM3 378 TH/MM3 Mean Platelet Volume 8.5 FL 8.1 FL Neutrophils (%) (Auto) 80.6 % Lymphocytes (%) (Auto) 13.0 % Monocytes (%) (Auto) 5.7 % Eosinophils (%) (Auto) 0.1 % Basophils (%) (Auto) 0.6 % Neutrophils # (Auto) 11.3 TH/MM3 Lymphocytes # (Auto) 1.8 TH/MM3 Monocytes # (Auto) 0.8 TH/MM3 Eosinophils # (Auto) 0.0 TH/MM3 Basophils # (Auto) 0.1 TH/MM3 CBC Comment DIFF FINAL Differential Comment Laboratory Tests Test 03/20/17 03/21/17 03/21/17 03/21/17 14:19 03:30 03:44 15:35 Phosphorus Level 3.1 MG/DL 2.9 MG/DL Ammonia 43 MCMOL/L Triglycerides Level 181 MG/DL Cholesterol Level 194 MG/DL LDL Cholesterol 124 MG/DL HDL Cholesterol 33.4 MG/DL Cholesterol/HDL Ratio 5.80 RATIO Sodium Level 135 MEQ/L Potassium Level 3.1 MEQ/L 4.2 MEQ/L Chloride Level 102 MEQ/L Carbon Dioxide Level 19.9 MEQ/L Anion Gap 13 MEQ/L Blood Urea Nitrogen 6 MG/DL Creatinine 0.49 MG/DL Estimat Glomerular Filtration 175 ML/MIN Rate Random Glucose 109 MG/DL Calcium Level 9.1 MG/DL Magnesium Level 1.8 MG/DL Total Bilirubin 0.3 MG/DL Aspartate Amino Transf 19 U/L (AST/SGOT) Alanine Aminotransferase 23 U/L (ALT/SGPT) Alkaline Phosphatase 164 U/L Total Protein 7.1 GM/DL Albumin 3.2 GM/DL Procalcitonin 0.06 ng/mL Test 03/22/17 06:04 Sodium Level 141 MEQ/L Potassium Level 3.2 MEQ/L Chloride Level 107 MEQ/L Carbon Dioxide Level 22.7 MEQ/L Anion Gap 11 MEQ/L Blood Urea Nitrogen 7 MG/DL Creatinine 0.60 MG/DL Estimat Glomerular Filtration 138 ML/MIN Rate Random Glucose 94 MG/DL Calcium Level 8.9 MG/DL Phosphorus Level 2.6 MG/DL Magnesium Level 1.9 MG/DL Microbiology Date/Time Procedure Status Source Growth 03/19/17 23:05 Aerobic Blood Culture - Preliminary Resulted Blood Peripheral Staph Sp Coagulase Negative 03/19/17 23:05 Anaerobic Blood Culture - Preliminary Resulted Staph Sp Coagulase Negative 03/19/17 23:05 Aerobic Blood Culture - Preliminary Resulted Blood Peripheral NO GROWTH IN 3 DAYS 03/19/17 23:05 Anaerobic Blood Culture - Preliminary Resulted Blood Peripheral NO GROWTH IN 3 DAYS 03/20/17 11:15 Urine Culture - Final Complete Urine Catheterized Urine NO GROWTH IN 48 HOURS. 03/20/17 16:00 Gram Stain - Final Resulted Sputum Endotracheal 03/20/17 16:00 Sputum Culture - Preliminary Resulted Sputum Endotracheal HEAVY GROWTH NORMAL RESPIRATORY JAZZ... 03/21/17 03:30 Aerobic Blood Culture - Preliminary Resulted Blood Peripheral NO GROWTH IN 1 DAY 03/21/17 03:30 Anaerobic Blood Culture - Preliminary Resulted Blood Peripheral NO GROWTH IN 1 DAY 03/21/17 03:44 Aerobic Blood Culture - Preliminary Resulted Blood Peripheral NO GROWTH IN 1 DAY 03/21/17 03:44 Anaerobic Blood Culture - Preliminary Resulted Blood Peripheral NO GROWTH IN 1 DAY Imaging Chest X-Ray 03/20/17 0000 Signed Impressions: Service Date/Time: Monday, March 20, 2017 14:31 - CONCLUSION: Endotracheal tube. Left lower lobe infiltrate. Wiliam Santizo Jr., MD Brain MRI 03/20/17 0000 Signed Impressions: Service Date/Time: Monday, March 20, 2017 12:12 - CONCLUSION: 1. There is an area of acute cortical infarct involving the caudate nucleus on the right. 2. Old infarct involving the caudate on the left. 3. Limited exam due to motion artifact Adolph Pepe MD Abdomen/Pelvis CT 03/20/17 0000 Signed Impressions: Service Date/Time: March 09:13 - CONCLUSION: 1. Negative CT scan of the abdomen and pelvis. Adolph Pepe MD Neck CTA 03/19/17 0000 Signed Impressions: Service Date/Time: Sunday, March 19, 2017 20:09 - CONCLUSION: Atherosclerotic plaque without a hemodynamically significant stenosis involving either carotid artery or vertebral artery. Wiliam Santizo Jr., MD Head CTA 03/19/17 0000 Signed Impressions: Service Date/Time: Sunday, March 19, 2017 20:09 - CONCLUSION: 1. Diffuse atherosclerotic plaque without a hemodynamically significant stenosis. Wiliam Santizo Jr., MD Head CT 03/19/17 0000 Signed Impressions: Service Date/Time: Sunday, March 19, 2017 18:30 - CONCLUSION: 1. No acute intracranial abnormality. 2. Areas of chronic lacunar infarction as detailed above. Wiliam Santizo Jr., MD Physical Exam GENERAL: Open eyes when stimulated, intubated, not in respiratory distress. SKIN: Cool and dry. No generalized rash, no ecchymoses and no evidence of embolic lesions. HEAD: Atraumatic. Normocephalic. No temporal wasting, or tenderness. EYES: [place] conjunctiva. No petechia or hemorrhage. Pupils equal, round and reactive to light. No scleral icterus. No injection or drainage. EARS, NOSE AND THROAT: Nose without bleeding or purulent nasal discharge. Endotracheal tube is in the mouth. NECK: Trachea midline. Supple and not tender, no meningeal signs. No new crit rigidity. CARDIOVASCULAR: Audible heart sounds RESPIRATORY: Coarse BS bilaterally. ABDOMEN: Soft, nondistended, bowel sounds present and normoactive. No reaction to deep palpation. No guarding. No organomegaly. EXTREMITIES: No clubbing, cyanosis, or edema. No joint effusion. Warm feet. NEUROLOGICAL: Opens eyes when stimulated. No ankle clonus. Pupils equal and reactive to light. PSYCHIATRIC: Unable to assess LINE: No evidence of infection : Zimmerman in place, urine looks clear Assessment & Plan Remarks IMPRESSION Acute CVA, ?seizure, posturing - recurrent CVA, ? hypercoagulable, ?emboli - previous work-up only had TTE Clinically does not have usual picture of meningitis, and neurological symptoms more consistent with acute CVA L base infiltrate, possible aspiration PNA Urinary retention Hypertension One (+) BC with Coag Neg Staph possibly a contaminant RECOMMENDATION IV Rocephin empirically for PNA - give 7 days Neurology evaluating patient Monitor progress Weaning per CCM D/W RN Dr Danya Silva covering this weekend - please call her if there are any ID issue that needs to be addressed this weekend; she will be available prn this weekend I will see patient back on Saturday Dara Peters MD Mar 22, 2017 13:03
--- NOTE | 2017-03-22 15:26 | HHI.CCPN ---
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 Per patient's he has right sided upper extremity paralysis and left lower extremity weakness secondary to his stroke. She states he has had some slurred speech but not to the degree that it began 45 minutes ago. Is concerned patient is having a recurrent stroke. He is on Plavix and aspirin at home. Patient denies any headache. No chest or tightness. No difficulty breathing. Patient has not been recently ill. He has been on by mouth baclofen for contractures, however he wasn't able to take those pills for last 24 hours due to difficulty swallowing. Subjective: 03/20; Afebrile. Upon evaluation this a.m., the patient completely aphasic, not responding to any commands. Diaphoretic, and tachycardic. CT brain was negative. Pending MRI this a.m.. Patient has received thus far since admission to the hospital noted Ativan 5 mg in conjunction with 2 mg of morphine in the emergency department. EEG currently underway. Neurology has been consulted. Patient was noted have bladder outlet obstruction previously, Minimal urine output with condom catheter, Zimmerman inserted with slight difficulty now adequate drainage. No seizure activity noted only spasticity at this time, patient continues on baclofen. 03/21: MRI revealed acute right caudate region infarct. Hypercoagulable bowel studies obtained per neurology Dr. Gonzalez, following. Patient previously complained of pelvic pain CT of the abdomen and pelvis results negative. Patient maintaining blood pressure within normal ranges. The patient continues on Plavix. ID consulted, Dr. Peters following. 03/22: Afebrile. Sedation minimized today. Patient is able to utilize left arm in follow commands. Propofol infusion discontinued Right upper extremity continue spasticity, with weakness but movement of hands to follow my commands. CPAP trials initiated today. Family meeting between this afternoon, and per patient's wishes, CODE STATUS changed to DNR. Palliative care consult initiated. Plan for family meeting on Saturday. Family states patient would not want a tracheostomy or PEG tube placement. I discussed with them the possibility of a trial of extubation, later in the week. Objective Vital Signs Date Time Temp Pulse Resp B/P Pulse Ox O2 Delivery O2 Flow Rate FiO2 03/22/17 14:00 101 03/22/17 12:00 40 03/22/17 12:00 98.8 14 115/64 99 03/20/17 09:37 Nasal Cannula 2.00 Intake and Output 03/21/17 03/21/17 03/21/17 07:59 15:59 23:59 Intake Total 786 ml 588 ml 1072 ml Output Total 500 ml 700 ml 225 ml Balance 286 ml -112 ml 847 ml Result Diagram: 03/22/17 0604 03/22/17 0604 Other Results Microbiology Date/Time Procedure Status Source Growth 03/20/17 11:15 Urine Culture - Final Complete Urine Catheterized Urine NO GROWTH IN 48 HOURS. Laboratory Tests Test 03/22/17 04:50 Blood Gas Puncture Site LT RADIAL Blood Gas Patient Temperature 98.6 Blood Gas HCO3 23 mmol/L (22-26) Blood Gas Base Excess -1.4 mmol/L (-2-2) Blood Gas Oxygen Saturation 98 % (90-100) Arterial Blood pH 7.39 (7.380-7.420) Arterial Blood Partial 38 mmHg (38-42) Pressure CO2 Arterial Blood Partial 165 mmHg Pressure O2 (61-120) Arterial Blood Oxygen Content 21.4 Vol % (12.0-20.0) Arterial Blood 0.7 % (0-4) Carboxyhemoglobin Arterial Blood Methemoglobin 0.8 % (0-2) Blood Gas Hemoglobin 15.4 G/DL (12.0-16.0) Oxygen Delivery Device VENTILATOR Blood Gas Ventilator Setting PRVC/AC Blood Gas Inspired Oxygen 40 % Objective Remarks BP 113/72 Pulse 96 O2 saturation 99% GENERAL: Well-nourished male patient, lying in bed, intubated and sedated SKIN: Warm and dry HEAD: Atraumatic. Normocephalic. EYES: Pupils equal and round. No scleral icterus. No injection or drainage. ENT: No nasal bleeding or discharge. Mucous membranes pink and moist. Orotracheally intubated NECK: Trachea midline. No JVD. CARDIOVASCULAR: Telemetry normal rate and rhythm. RESPIRATORY: No accessory muscle use. Clear to auscultation. Breath sounds equal bilaterally. GASTROINTESTINAL: Abdomen soft, non-tender, nondistended. Hepatic and splenic margins not palpable. MUSCULOSKELETAL: Right upper extremity is in a brace. No clubbing. No cyanosis. No edema. NEUROLOGICAL: GCS 3T. Intubated and sedated Urinary Catheter: Yes Zimmerman insert reason: Measure Accurate Output Date of Insertion: Mar 20, 2017 A/P Assessment and Plan Altered mental status with slurred speech Acute infarct - 03/20 F/U MRI brain this am - Seizure prophylaxis- Keppra - [id number] results - Further workup per neurology-Dr. Gonzalez following - Continue aspirin and Plavix -Hold Ativan, and sedative type medications at this time, discontinue propofol -Continue fentanyl infusion for ventilator synchrony -Follow-up hypercoagulable studies-pending Acute hypoxemic respiratory failure -Ventilator bundle -Obtain O2 sat greater than 92% -Decrease FiO2 0.35 -Daily chest x-rays monitor ABGs -Bronchodilators Hypertensive urgency - Lisinopril home medication ( patient unable to take by mouth meds at this time ) -Labetalol 10 mg every 6 hours when necessary for systolic blood pressure greater than 200 mmHG Tachycardia -Metoprolol 2.5 mg every 6 hours pRN for heart rate > 100 -Labetalol 10 mg every 6 hours for systolic blood pressure greater than 160mmHg S/P previous CVA x 2 (Nov, Aug 2016) - Continue baclofen Mild protein calorie malnutrition -OGT -Continue tube feeds Jevity 1.5 Hyperlipidemia -Monitor LFTs -Continue pravastatin ( home medication) DVT GI prophylaxis - Subcutaneous heparin and Pepcid Dispo: Level 3 Extensive discussion with family regarding the patient's desires. Plans for family meeting with palliative care on Saturday. Family requested DNR CODE STATUS effective today. Will continue optimization of treatmentand follow-up neurology recommendations regarding physical status and realistic expectations post recent CVA. . Physician Jessie Dimas MD Mar 22, 2017 15:26
[2017-03-22] MEDS: METOPROLOL TARTRATE 5 MG/5 ML VIAL IV PUSH PRN (15:42)
--- NOTE | 2017-03-22 16:22 | RADRPT ---
EXAM DATE/TIME: 03/22/2017 03:51 [facility] COMPARISON: CHEST SINGLE AP, March 20, 2017, 14:31. INDICATIONS : Respiratory failure. MEDICAL HISTORY : Cardiovascular disease. Hypertension. Hernia, hiatal SURGICAL HISTORY : None. ENCOUNTER: Subsequent ACUITY: 4 - 6 days PAIN SCORE: Non-responsive. LOCATION: Bilateral chest FINDINGS: Cardiomegaly. Endotracheal tube tip terminates 2 cm above the tomas. Enteric tube courses beneath th e diaphragm. There is a fracture deformity right mid clavicle. The lungs are clear. CONCLUSION: 1. Endotracheal tube in good position. The lungs are clear. Sloan Garay MD on March 22, 2017 at 4:47 Board Certified Radiologist. This report was verified electronically.
[2017-03-22] MEDS: cefTRIAXone INJ 2,000 MG in SODIUM CHLORIDE 0.9% INJ 100 ML IV SCH (16:34)
--- NOTE | 2017-03-22 17:04 | HHI.PR ---
Review/Management Diagnosis right basal ganglia stroke Plan continue plavix. Diagnosis/Plan: Subjective Subjective Comments No acute events reported Active Medications Current Medications Medications (Trade) Dose Ordered Sig/Ryan Route Start Time Stop Time Status Last Admin (NS 1000 ml Inj) 1,000 ml @ 84 mls/hr [id number] IV 03/19/17 23:36 03/22/17 10:58 (NS Flush) 2 ml UNSCH PRN .XX 03/19/17 23:45 (NS Flush) 2 ml BID .XX 03/20/17 09:00 03/22/17 07:45 (Tylenol) 650 mg Q6H PRN PO 03/19/17 23:45 (Morphine Inj) 2 mg Q2H PRN IV PUSH 03/19/17 23:45 Hold 03/20/17 05:15 (Pepcid Inj) 20 mg Q12HR IV PUSH 03/20/17 09:00 03/22/17 09:01 (Ativan Inj) 1 mg Q1H PRN IV 03/19/17 23:45 Hold 03/20/17 05:15 (Tears Naturale Opth Soln) 1 drop TID EACH EYE 03/20/17 09:00 03/22/17 16:34 (Zofran Inj) 4 mg Q6H PRN IV 03/19/17 23:45 (Heparin Inj) 5,000 units Q12H SQ 03/19/17 23:45 03/22/17 11:49 Miscellaneous Information 1 Q361D XX 03/19/17 23:45 03/19/17 23:45 (Chlorhexidine 2% Cloth) 3 pack Taper DAILY@04 TOP 03/20/17 04:00 03/16/18 03:59 03/22/17 04:03 (Chlorhexidine 2% Cloth) 3 pack UNSCH PRN TOP 03/19/17 23:45 ([place]ira-Colace) 1 tab BID PO 03/20/17 09:00 03/22/17 09:01 (Milk Of Magnesia Liq) 30 ml Q12H PRN PO 03/19/17 23:45 (Senokot) 17.2 mg Q12H PRN PO 03/19/17 23:45 (Dulcolax Supp) 10 mg DAILY PRN RECTAL 03/19/17 23:45 (Lactulose Liq) 30 ml DAILY PRN PO 03/19/17 23:45 (Lioresal) 20 mg HS PO 03/20/17 21:00 03/21/17 20:54 (Plavix) 75 mg DAILY PO 03/20/17 09:00 03/22/17 09:01 (Obion 5-325 Mg) 1 tab Q12HR PRN PO 03/19/17 23:45 (Prinivil) 5 mg DAILY PO 03/20/17 09:00 (Preparation H Oint) 1 applic Q6H PRN RECTAL 03/19/17 23:45 (Zoloft) 50 mg DAILY PO 03/20/17 09:00 03/22/17 09:02 Pravastatin Sodium 80 mg 80 mg DAILY PO 03/20/17 09:00 03/22/17 09:01 (Keppra Inj/NS Inj) 105 ml @ 420 mls/hr Q12HR IV 03/19/17 23:45 03/22/17 09:01 Metoprolol Tartrate 2.5 mg 2.5 mg Q6H PRN IV PUSH 03/20/17 10:45 03/22/17 15:42 Potassium Chloride 100 ml @ 50 mls/hr Q2H PRN IV 03/20/17 10:45 (KCl 20 Meq Premix Inj) 100 ml @ 50 mls/hr Q2H PRN IV 03/20/17 10:45 03/22/17 09:03 Potassium Bicarb/ Potassium Chloride 50 meq 50 meq UNSCH PRN PO 03/20/17 10:45 Potassium Chloride 100 ml @ 25 mls/hr UNSCH PRN IV 03/20/17 10:45 Potassium Chloride 100 ml @ 50 mls/hr Q2H PRN IV 03/20/17 10:45 (Magnesium Sulfate Inj/NS Inj) 100 ml @ 50 mls/hr UNSCH PRN IV 03/20/17 10:45 Magnesium Oxide 800 mg 800 mg UNSCH PRN PO 03/20/17 10:45 (Magnesium Sulfate Inj/NS Inj) 100 ml @ 50 mls/hr UNSCH PRN IV 03/20/17 10:45 Potassium Phosphate 2000 mg 2,000 mg Q4H PRN PO 03/20/17 10:45 (Sodium Phosphate Inj/NS 250 ml Inj) 250 ml @ 42 mls/hr UNSCH PRN IV 03/20/17 10:45 Potassium Phosphate 2000 mg 2,000 mg UNSCH PRN PO/TUBE 03/20/17 10:45 (Potassium Phosphate Inj/NS 250 ml Inj) 260 ml @ 42 mls/hr UNSCH PRN IV 03/20/17 10:45 Labetalol HCl 10 mg 10 mg Q6H PRN IV PUSH 03/20/17 11:30 (Diprivan 1000 Mg/100ml Inj) 100 ml @ 0 mls/hr TITRATE IV 03/20/17 13:45 03/22/17 05:54 Chlorhexidine Gluconate 15 ml 15 ml BID@08,20 MT 03/20/17 20:00 03/22/17 09:00 (fentaNYL DRIP) 250 ml @ 0 mls/hr TITRATE IV 03/20/17 14:45 03/22/17 10:58 (NS Flush) 2 ml BID IV FLUSH 03/20/17 21:00 03/22/17 07:45 (NS Flush) 2 ml UNSCH PRN IV FLUSH 03/20/17 16:15 (Lipitor) 10 mg HS PO 03/20/17 21:00 03/21/17 20:54 (NovoLOG SUPPLEMENTAL SCALE) 1 ACHS SQ 03/20/17 21:00 03/22/17 16:32 (D50w (Vial) Inj) 50 ml UNSCH PRN IV PUSH 03/20/17 16:15 Glucagon 1 mg 1 mg UNSCH PRN OTHER 03/20/17 16:15 (Rocephin Inj/NS Inj) 100 ml @ 200 mls/hr Q24H IV 03/20/17 17:00 03/26/17 23:00 03/22/17 16:34 Allergies Allergies Coded Allergies No Known Allergies (Verified03/19/17) Review of Systems All other ROS: ROS reviewed as documented in chart Exam I&O / VS 03/21/17 03/21/17 03/22/17 15:00 23:00 07:00 Intake Total 588 ml 1072 ml 962 ml Output Total 700 ml 225 ml 200 ml Balance -112 ml 847 ml 762 ml Intake IV Total 588 ml 917 ml 724 ml Tube Feeding 115 ml 238 ml Other 40 ml Output Urine Total 450 ml 225 ml 200 ml Stool Total 0 ml 0 ml 0 ml Gastric Drainage Total 250 ml Vital Signs Date Time Temp Pulse Resp B/P Pulse Ox O2 Delivery O2 Flow Rate FiO2 03/22/17 15:30 45 03/22/17 14:00 101 03/22/17 13:15 35 03/22/17 13:10 100 35 03/22/17 13:10 35 03/22/17 12:00 81 03/22/17 12:00 40 03/22/17 12:00 98.8 81 14 115/64 99 03/22/17 10:00 93 03/22/17 08:00 40 03/22/17 08:00 98.7 111 15 124/68 99 03/22/17 08:00 111 03/22/17 07:48 99 35 03/22/17 06:00 128 03/22/17 04:00 107 03/22/17 04:00 98.5 85 14 122/81 100 03/22/17 04:00 40 03/22/17 03:31 100 40 03/22/17 02:00 107 03/22/17 00:00 98.4 94 15 105/51 100 03/22/17 00:00 40 03/22/17 00:00 94 03/21/17 23:28 99 40 03/21/17 22:00 124 03/21/17 20:00 109 03/21/17 20:00 99.3 115 15 140/73 99 03/21/17 20:00 40 03/21/17 19:31 100 40 03/21/17 18:00 102 General: Alert and Oriented, No acute distress Respiratory: Lungs CTA, Non-labored respirations, BS equal Cardiology: Normal rate, Regular Rhythm Musculoskeletal: Tenderness, Deformity Neurologic: Alert Psychiatric: Cooperative Exam Comments lethargic, follows occasional commands perrl MOTOR--weaker on left Objective Micro and Labs Laboratory Tests Test 03/22/17 03/22/17 04:50 06:04 Blood Gas Puncture Site LT RADIAL Blood Gas Patient Temperature 98.6 Blood Gas HCO3 23 Blood Gas Base Excess -1.4 Blood Gas Oxygen Saturation 98 Arterial Blood pH 7.39 Arterial Blood Partial 38 Pressure CO2 Arterial Blood Partial 165 Pressure O2 Arterial Blood Oxygen Content 21.4 Arterial Blood 0.7 Carboxyhemoglobin Arterial Blood Methemoglobin 0.8 Blood Gas Hemoglobin 15.4 Oxygen Delivery Device VENTILATOR Blood Gas Ventilator Setting PRVC/AC Blood Gas Inspired Oxygen 40 White Blood Count 8.8 Red Blood Count 3.86 Hemoglobin 11.0 Hematocrit 33.3 Mean Corpuscular Volume 86.3 Mean Corpuscular Hemoglobin 28.5 Mean Corpuscular Hemoglobin 33.0 Concent Red Cell Distribution Width 13.0 Platelet Count 378 Mean Platelet Volume 8.1 Sodium Level 141 Potassium Level 3.2 Chloride Level 107 Carbon Dioxide Level 22.7 Anion Gap 11 Blood Urea Nitrogen 7 Creatinine 0.60 Estimat Glomerular Filtration 138 Rate Random Glucose 94 Calcium Level 8.9 Phosphorus Level 2.6 Magnesium Level 1.9 Date/Time Procedure Status Source Growth 03/21/17 03:44 Aerobic Blood Culture - Preliminary Resulted Blood Peripheral NO GROWTH IN 1 DAY 03/21/17 03:44 Anaerobic Blood Culture - Preliminary Resulted Blood Peripheral NO GROWTH IN 1 DAY 03/20/17 16:00 Gram Stain - Final Resulted Sputum Endotracheal 03/20/17 16:00 Sputum Culture - Preliminary Resulted Sputum Endotracheal HEAVY GROWTH NORMAL RESPIRATORY CAROL ANN... 03/20/17 11:15 Urine Culture - Final Complete Urine Catheterized Urine NO GROWTH IN 48 HOURS. Marcelino Gonzalez PhD Mar 22, 2017 17:04
--- NOTE | 2017-03-22 17:52 | PD.CONS ---
[facility] Service Rehabilitation Medicine Consult Requested By Marcelino Gonzalez MD Reason for Consult Comprehensive rehabilitation evaluation. Primary Care Physician Adry Olivarez MD History of Present Illness Deon Croft is a 57 year old right hand dominant male well known to me from inpatient rehabilitation course after previous stroke 08/2016 and outpatient clinic where he is followed for ongoing rehabilitation management. Patient was last seen 02/28/17 and was progressing. He was admitted to [facility] 03/19/17 with worsening of baseline slurred speech. Head CT showed no acute intracranial abnormality; chronic lacunar infarct left basal ganglia extending to conklin radiata and chronic right caudate infarct. Brain MRI 03/20/17 showed acute infarct in right caudate and old infarct in the left caudate. EEG negative for seizure activity. CT of abd/pelvis negative. Review of Systems ROS Limitations: Clinical Condition, Intubated Past Family Social History Allergies: Coded Allergies: No Known Allergies (Verified , 03/19/17) Past Medical History HTN GERD CVA 08/2016 OA Anxiety Current Medications Current Medications Medications (Trade) Dose Ordered Sig/Ryan Route Start Time Stop Time Status Last Admin (NS 1000 ml Inj) 1,000 ml @ 84 mls/hr [id number] IV 03/19/17 23:36 03/22/17 10:58 (NS Flush) 2 ml UNSCH PRN .XX 03/19/17 23:45 (NS Flush) 2 ml BID .XX 03/20/17 09:00 03/22/17 07:45 (Tylenol) 650 mg Q6H PRN PO 03/19/17 23:45 (Morphine Inj) 2 mg Q2H PRN IV PUSH 03/19/17 23:45 Hold 03/20/17 05:15 (Pepcid Inj) 20 mg Q12HR IV PUSH 03/20/17 09:00 03/22/17 09:01 (Ativan Inj) 1 mg Q1H PRN IV 03/19/17 23:45 Hold 03/20/17 05:15 (Tears Naturale Opth Soln) 1 drop TID EACH EYE 03/20/17 09:00 03/22/17 16:34 (Zofran Inj) 4 mg Q6H PRN IV 03/19/17 23:45 (Heparin Inj) 5,000 units Q12H SQ 03/19/17 23:45 03/22/17 11:49 Miscellaneous Information 1 [id number] XX 03/19/17 23:45 03/19/17 23:45 (Chlorhexidine 2% Cloth) 3 pack Taper DAILY@04 TOP 03/20/17 04:00 03/16/18 03:59 03/22/17 04:03 (Chlorhexidine 2% Cloth) 3 pack UNSCH PRN TOP 03/19/17 23:45 (Edelmira-Colace) 1 tab BID PO 03/20/17 09:00 03/22/17 09:01 (Milk Of Magnesia Liq) 30 ml Q12H PRN PO 03/19/17 23:45 (Senokot) 17.2 mg Q12H PRN PO 03/19/17 23:45 (Dulcolax Supp) 10 mg DAILY PRN RECTAL 03/19/17 23:45 (Lactulose Liq) 30 ml DAILY PRN PO 03/19/17 23:45 (Lioresal) 20 mg HS PO 03/20/17 21:00 03/21/17 20:54 (Plavix) 75 mg DAILY PO 03/20/17 09:00 03/22/17 09:01 ([place] 5-325 Mg) 1 tab Q12HR PRN PO 03/19/17 23:45 (Prinivil) 5 mg DAILY PO 03/20/17 09:00 (Preparation H Oint) 1 applic Q6H PRN RECTAL 03/19/17 23:45 (Zoloft) 50 mg DAILY PO 03/20/17 09:00 03/22/17 09:02 Pravastatin Sodium 80 mg 80 mg DAILY PO 03/20/17 09:00 03/22/17 09:01 (Keppra Inj/NS Inj) 105 ml @ 420 mls/hr Q12HR IV 03/19/17 23:45 03/22/17 09:01 Metoprolol Tartrate 2.5 mg 2.5 mg Q6H PRN IV PUSH 03/20/17 10:45 03/22/17 15:42 Potassium Chloride 100 ml @ 50 mls/hr Q2H PRN IV 03/20/17 10:45 (KCl 20 Meq Premix Inj) 100 ml @ 50 mls/hr Q2H PRN IV 03/20/17 10:45 03/22/17 09:03 Potassium Bicarb/ Potassium Chloride 50 meq 50 meq UNSCH PRN PO 03/20/17 10:45 Potassium Chloride 100 ml @ 25 mls/hr UNSCH PRN IV 03/20/17 10:45 Potassium Chloride 100 ml @ 50 mls/hr Q2H PRN IV 03/20/17 10:45 (Magnesium Sulfate Inj/NS Inj) 100 ml @ 50 mls/hr UNSCH PRN IV 03/20/17 10:45 Magnesium Oxide 800 mg 800 mg UNSCH PRN PO 03/20/17 10:45 (Magnesium Sulfate Inj/NS Inj) 100 ml @ 50 mls/hr UNSCH PRN IV 03/20/17 10:45 Potassium Phosphate 2000 mg 2,000 mg Q4H PRN PO 03/20/17 10:45 (Sodium Phosphate Inj/NS 250 ml Inj) 250 ml @ 42 mls/hr UNSCH PRN IV 03/20/17 10:45 Potassium Phosphate 2000 mg 2,000 mg UNSCH PRN PO/TUBE 03/20/17 10:45 (Potassium Phosphate Inj/NS 250 ml Inj) 260 ml @ 42 mls/hr UNSCH PRN IV 03/20/17 10:45 Labetalol HCl 10 mg 10 mg Q6H PRN IV PUSH 03/20/17 11:30 (Diprivan 1000 Mg/100ml Inj) 100 ml @ 0 mls/hr TITRATE IV 03/20/17 13:45 03/22/17 05:54 Chlorhexidine Gluconate 15 ml 15 ml BID@08,20 MT 03/20/17 20:00 03/22/17 09:00 (fentaNYL DRIP) 250 ml @ 0 mls/hr TITRATE IV 03/20/17 14:45 03/22/17 10:58 (NS Flush) 2 ml BID IV FLUSH 03/20/17 21:00 03/22/17 07:45 (NS Flush) 2 ml UNSCH PRN IV FLUSH 03/20/17 16:15 (Lipitor) 10 mg HS PO 03/20/17 21:00 03/21/17 20:54 (NovoLOG SUPPLEMENTAL SCALE) 1 ACHS SQ 03/20/17 21:00 03/22/17 16:32 (D50w (Vial) Inj) 50 ml UNSCH PRN IV PUSH 03/20/17 16:15 Glucagon 1 mg 1 mg UNSCH PRN OTHER 03/20/17 16:15 (Rocephin Inj/NS Inj) 100 ml @ 200 mls/hr Q24H IV 03/20/17 17:00 03/26/17 23:00 03/22/17 16:34 Family History Mother: HTN Social History Lives with in [place], [place]. Ambulating household distances with cane and able to transfer with supervision. No tobacco or ETOH. Exam I&O / VS 03/21/17 03/21/17 03/22/17 15:00 23:00 07:00 Intake Total 588 ml 1072 ml 962 ml Output Total 700 ml 225 ml 200 ml Balance -112 ml 847 ml 762 ml Intake IV Total 588 ml 917 ml 724 ml Tube Feeding 115 ml 238 ml Other 40 ml Output Urine Total 450 ml 225 ml 200 ml Stool Total 0 ml 0 ml 0 ml Gastric Drainage Total 250 ml Vital Signs Date Time Temp Pulse Resp B/P Pulse Ox O2 Delivery O2 Flow Rate FiO2 03/22/17 16:00 98.4 108 14 92/61 97 03/22/17 16:00 40 03/22/17 16:00 108 03/22/17 15:30 45 03/22/17 14:00 101 03/22/17 13:15 35 03/22/17 13:10 100 35 03/22/17 13:10 35 03/22/17 12:00 81 03/22/17 12:00 40 03/22/17 12:00 98.8 81 14 115/64 99 03/22/17 10:00 93 03/22/17 08:00 40 03/22/17 08:00 98.7 111 15 124/68 99 03/22/17 08:00 111 03/22/17 07:48 99 35 03/22/17 06:00 128 03/22/17 04:00 107 03/22/17 04:00 98.5 85 14 122/81 100 03/22/17 04:00 40 03/22/17 03:31 100 40 03/22/17 02:00 107 03/22/17 00:00 98.4 94 15 105/51 100 03/22/17 00:00 40 03/22/17 00:00 94 03/21/17 23:28 99 40 03/21/17 22:00 124 03/21/17 20:00 109 03/21/17 20:00 99.3 115 15 140/73 99 03/21/17 20:00 40 03/21/17 19:31 100 40 03/21/17 18:00 102 General: No acute distress Respiratory: Lungs CTA, Non-labored respirations, BS equal, Coarse breath sounds Gastrointestinal: Positive Bowel Sounds, Distended, Non-Tender Cardiovascular: Normal rate, Regular Rhythm, Other Skin: Other (No rash noted) Musculoskeletal: ROM (Limited right UE) Psychiatric: Other (Briefly opens eyes to stimultation and appears to become restless) Orientation: unable to asses Self, unable to asses Place, unable to asses Time , unable to asses Situation Neurologic: Pupils (PERRLA), Facial Symmetry (Right facial droop), Other (No following commands to move UE or LE; some spontaneous movement left UE; tone increased in all extremities) Babinski: Positive (Bilaterally) Assessment and Plan Diagnosis: (1) Acute CVA (cerebrovascular accident) Assessment 1. 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 Intubated and palliative care has been consulted 2. HTN 3. Anxiety 4. OA 5. GERD Plan 1. PT following for ROM and patient currently dependent for mobility 2. ST following for swallow and currently NPO 3. Continue to reposition q 2 hours and monitor skin carefully 4. SCD's in place for CTE prophylaxis 5. Will follow regarding ongoing rehabilitation in conjunction with case management and family requests per palliative care Thank you for this consult. Shira Silveira MD Mar 22, 2017 17:51
--- NOTE | 2017-03-22 18:07 | ECHRPT ---
Indication: Other transient cerebral ischemic attacks and related syndromes CONCLUSIONS Mildly dilated left ventricle. Wall thickness is normal. The left ventricular systolic function is moderately reduced with an estimated ejection fraction in the range of 40-45%. There hypokinesis with distinct regional wall motion abnormalities. Trace mitral valve regurgitation. There is mild tricuspid valve regurgitation. The estimated pulmonary arterial pressure is 32 mmHg. BP: 137 / 86 HR: 113 Rhythm: MEASUREMENTS (Male / Female) Normal Values Technical Quality: 2D ECHO LV Diastolic Diameter PLAX 4.6 cm 4.2 - 5.9 / 3.9 - 5.3 cm LV Systolic Diameter PLAX 3.8 cm IVS Diastolic Thickness 1.0 cm 0.6 - 1.0 / 0.6 - 0.9 cm LVPW Diastolic Thickness 0.7 cm 0.6 - 1.0 / 0.6 - 0.9 cm LV Relative Wall Thickness 0.4 RV Internal Dim ED PLAX 2.0 cm LA Systolic Diameter LX 3.2 cm 3.0 - 4.0 / 2.7 - 3.8 cm DOPPLER Mitral E Point Velocity 78.0 cm/s Mitral A Point Velocity 47.9 cm/s Mitral E to A Ratio 1.6 TR Peak Velocity 208.0 cm/s TR Peak Gradient 17.3 mmHg FINDINGS LEFT VENTRICLE Mildly dilated left ventricle. Wall thickness is normal. The left ventricular systolic function is moderately reduced with an estimated ejection fraction in the range of 40-45%. There hypokinesis with distinct regional wall motion abnormalities. RIGHT VENTRICLE Normal right ventricular size and systolic function. LEFT ATRIUM The left atrial size is normal. RIGHT ATRIUM The right atrial size is normal. ATRIAL SEPTUM Normal atrial septal thickness without atrial level shunting by limited color doppler interrogation. AORTA The aortic root and proximal ascending aorta are normal in size on limited imaging. MITRAL VALVE Trace mitral valve regurgitation. AORTIC VALVE Trileaflet aortic valve. No aortic valve stenosis or regurgitation. TRICUSPID VALVE There is mild tricuspid valve regurgitation. The estimated pulmonary arterial pressure is 32 mmHg. PULMONARY VALVE The pulmonary valve is not well visualized. VESSELS The inferior vena cava is normal in size. PERICARDIUM No pericardial effusion. Jared Rizo MD (Electronically Signed) Final Date:22 March 2017 18:06
--- NOTE | 2017-03-22 18:12 | PD.CONS ---
Consult Service Palliative Care Consult Requested By Dr. Joseph Primary Care Physician Adry Olivarez MD Reason for Consultation a. To assist with evaluation and management of symptoms including: Dyspnea, pain, anxiety, and goals of care. b. To assist medical decision maker(s) with: better understanding of current medical conditions; weighing benefits/burdens of medical treatment options; making medical treatment decisions. . HPI History of Present Illness Mr. Croft is a 57 year old male with past medical history of left ischemic CVA X 2, in November and an ischemic MCA stroke Aug 2016. HTN, GERD, arthritis, and anxiety. Patient presented to [facility] ED on 03/19/17 for stroke like symptoms including worsening slurred speech and numbness in face. HIs was able to get him to the hospital within 30 minutes of the onset of symptoms. Notes indicate patient had residual slurred speech from his prior CVA, as well as right hemiparesis and left lower extremity weakness. Initial brain CT was negative, however, brain MRI revealed new right cortical infarct. On 03/20/17 he was found to be aphasic, unresponsive with questionable posturing, tachycardic, and diaphoretic. He was subsequently intubated and placed on mechanical ventilation. Currently patient remains intubated and sedated. Nursing reports episode of tachycardia, tachypnea, and diaphoresis. He was placed back on sedation. Dr. Joseph reports, per conversation with family, they have elected DNR status. Palliative care was consulted to assist with further clarification of treatment goals. Spoke with via phone to introduce Palliative care service. She is very appreciative. She provided additional history, seems to have a good understanding of clinical condition. She is tearful when talking about current status. She requests meeting on 03/25/17 at 10am. Palliative care number provided. . Function/Cognitive Trajectory Was in [place] and home with outpatient rehab (for 5 months). Paralyzed on right after stroke. Showered with medical equipment independently. Walker and almost to cane. . Review of Systems ROS Limitations: Clinical Condition, Intubated, Altered Mental Status (sedated) Constitutional: COMPLAINS OF: Diaphoretic episodes, Generalized weakness Respiratory: COMPLAINS OF: Shortness of breath Gastrointestinal: COMPLAINS OF: Difficulty Swallowing Genitourinary: COMPLAINS OF: Urinary incontinence Neurologic: COMPLAINS OF: Abnormal gait, Localized weakness (right side paralysis. ), Paresthesias, Speech Problems, Poor Balance (ambulated with walker , almost walking with cane. ) Past Family Social History Coded Allergies: No Known Allergies (Verified , 03/19/17) Past Medical History * CVA X2, recent history of ischemic MCA infarct August 2016 with residual right hemiparesis, * HTN * GERD * anxiety * arthritis . Past Surgical History Hernia repair . Reported Medications Reported Meds & Active Scripts Active Hydrocodone-Acetaminophen 5-325 mg Tab 1 Tab PO Q12HR PRN Plavix (Clopidogrel Bisulfate) 75 Mg Tab 75 Mg PO DAILY Lisinopril 5 Mg Tab 5 Mg PO DAILY Simvastatin 80 Mg Tab 80 Mg PO DAILY Zoloft (Sertraline HCl) 50 Mg Tab 50 Mg PO DAILY Baclofen 10 Mg Tab 20 Mg PO HS Preparation H Topical (Phenylephrine-Mineral Oil-Petrolatum Topical) 0.25-3-14- 71.9 % Oint 1 Applic RECTAL Q6H PRN 30 Days . Current Medications Medications (Trade) Dose Ordered Sig/Ryan Route Start Time Stop Time Status Last Admin (NS 1000 ml Inj) 1,000 ml @ 84 mls/hr [id number] IV 03/19/17 23:36 03/22/17 10:58 (NS Flush) 2 ml UNSCH PRN .XX 03/19/17 23:45 (NS Flush) 2 ml BID .XX 03/20/17 09:00 03/22/17 07:45 (Tylenol) 650 mg Q6H PRN PO 03/19/17 23:45 (Morphine Inj) 2 mg Q2H PRN IV PUSH 03/19/17 23:45 Hold 03/20/17 05:15 (Pepcid Inj) 20 mg Q12HR IV PUSH 03/20/17 09:00 03/22/17 09:01 (Ativan Inj) 1 mg Q1H PRN IV 03/19/17 23:45 Hold 03/20/17 05:15 (Tears Naturale Opth Soln) 1 drop TID EACH EYE 03/20/17 09:00 03/22/17 11:50 (Zofran Inj) 4 mg Q6H PRN IV 03/19/17 23:45 (Heparin Inj) 5,000 units Q12H SQ 03/19/17 23:45 03/22/17 11:49 Miscellaneous Information 1 Q361D XX 03/19/17 23:45 03/19/17 23:45 (Chlorhexidine 2% Cloth) 3 pack Taper DAILY@04 TOP 03/20/17 04:00 03/16/18 03:59 03/22/17 04:03 (Chlorhexidine 2% Cloth) 3 pack UNSCH PRN TOP 03/19/17 23:45 (Edelmira-Colace) 1 tab BID PO 03/20/17 09:00 03/22/17 09:01 (Milk Of Magnesia Liq) 30 ml Q12H PRN PO 03/19/17 23:45 (Senokot) 17.2 mg Q12H PRN PO 03/19/17 23:45 (Dulcolax Supp) 10 mg DAILY PRN RECTAL 03/19/17 23:45 (Lactulose Liq) 30 ml DAILY PRN PO 03/19/17 23:45 (Lioresal) 20 mg HS PO 03/20/17 21:00 03/21/17 20:54 (Plavix) 75 mg DAILY PO 03/20/17 09:00 03/22/17 09:01 (Olancha 5-325 Mg) 1 tab Q12HR PRN PO 03/19/17 23:45 (Prinivil) 5 mg DAILY PO 03/20/17 09:00 (Preparation H Oint) 1 applic Q6H PRN RECTAL 03/19/17 23:45 (Zoloft) 50 mg DAILY PO 03/20/17 09:00 03/22/17 09:02 Pravastatin Sodium 80 mg 80 mg DAILY PO 03/20/17 09:00 03/22/17 09:01 (Keppra Inj/NS Inj) 105 ml @ 420 mls/hr Q12HR IV 03/19/17 23:45 03/22/17 09:01 Metoprolol Tartrate 2.5 mg 2.5 mg Q6H PRN IV PUSH 03/20/17 10:45 03/22/17 15:42 Potassium Chloride 100 ml @ 50 mls/hr Q2H PRN IV 03/20/17 10:45 (KCl 20 Meq Premix Inj) 100 ml @ 50 mls/hr Q2H PRN IV 03/20/17 10:45 03/22/17 09:03 Potassium Bicarb/ Potassium Chloride 50 meq 50 meq UNSCH PRN PO 03/20/17 10:45 Potassium Chloride 100 ml @ 25 mls/hr UNSCH PRN IV 03/20/17 10:45 Potassium Chloride 100 ml @ 50 mls/hr Q2H PRN IV 03/20/17 10:45 (Magnesium Sulfate Inj/NS Inj) 100 ml @ 50 mls/hr UNSCH PRN IV 03/20/17 10:45 Magnesium Oxide 800 mg 800 mg UNSCH PRN PO 03/20/17 10:45 (Magnesium Sulfate Inj/NS Inj) 100 ml @ 50 mls/hr UNSCH PRN IV 03/20/17 10:45 Potassium Phosphate 2000 mg 2,000 mg Q4H PRN PO 03/20/17 10:45 (Sodium Phosphate Inj/NS 250 ml Inj) 250 ml @ 42 mls/hr UNSCH PRN IV 03/20/17 10:45 Potassium Phosphate 2000 mg 2,000 mg UNSCH PRN PO/TUBE 03/20/17 10:45 (Potassium Phosphate Inj/NS 250 ml Inj) 260 ml @ 42 mls/hr UNSCH PRN IV 03/20/17 10:45 Labetalol HCl 10 mg 10 mg Q6H PRN IV PUSH 03/20/17 11:30 (Diprivan 1000 Mg/100ml Inj) 100 ml @ 0 mls/hr TITRATE IV 03/20/17 13:45 03/22/17 05:54 Chlorhexidine Gluconate 15 ml 15 ml BID@08,20 MT 03/20/17 20:00 03/22/17 09:00 (fentaNYL DRIP) 250 ml @ 0 mls/hr TITRATE IV 03/20/17 14:45 03/22/17 10:58 (NS Flush) 2 ml BID IV FLUSH 03/20/17 21:00 03/22/17 07:45 (NS Flush) 2 ml UNSCH PRN IV FLUSH 03/20/17 16:15 (Lipitor) 10 mg HS PO 03/20/17 21:00 03/21/17 20:54 (NovoLOG SUPPLEMENTAL SCALE) 1 ACHS SQ 03/20/17 21:00 (D50w (Vial) Inj) 50 ml UNSCH PRN IV PUSH 03/20/17 16:15 Glucagon 1 mg 1 mg UNSCH PRN OTHER 03/20/17 16:15 (Rocephin Inj/NS Inj) 100 ml @ 200 mls/hr Q24H IV 03/20/17 17:00 03/26/17 23:00 03/21/17 17:31 . Family History Mother, brother and sister with high cholesterol. Mother of stroke. . Substance Use Tobacco: smokes Alcohol: occasional Prescription med abuse: none Illicits: drug screen positive for marijuana Psychosocial History to Leonor for 10 years and together 20 years. Has 1 son, Pb who has arrived from [place]. Has a daughter who is estranged. . Spiritual/Cultural Factors Believes in God. Raised Church. Declines fountain operator support at this. . Living Will: Never completed Health Care Surrogate: Never completed Durable Power of Hydraulic Design Engineer: Never completed Health Care Surrogate(s): Patient is currently incapacitated and not expected to regain capacity. Per [place] Statutes, healthcare proxy falls to . . Documented care wishes: Family would like to meet Saturday to discuss treatment goals. Family previously expressed wishes for DNR status with Dr. Joseph. . Today's verbally stated goals: Per blow mold operator, family has elected DNR. . Family/friends goals: No family available to speak with, per blow mold operator Dr. Joseph, family would like to meet Saturday. NO CODE: per family request . Ethical and Legal Issues Patient is currently incapacitated and not expected to regain capacity. Per [place] Statutes, healthcare proxy falls to . Physical Exam Vital Signs Date Time Temp Pulse Resp B/P Pulse Ox O2 Delivery O2 Flow Rate FiO2 03/22/17 15:30 45 03/22/17 14:00 101 03/22/17 13:15 35 03/22/17 13:10 100 35 03/22/17 13:10 35 03/22/17 12:00 81 03/22/17 12:00 40 03/22/17 12:00 98.8 81 14 115/64 99 03/22/17 10:00 93 03/22/17 08:00 40 03/22/17 08:00 98.7 111 15 124/68 99 03/22/17 08:00 111 03/22/17 07:48 99 35 03/22/17 06:00 128 03/22/17 04:00 107 03/22/17 04:00 98.5 85 14 122/81 100 03/22/17 04:00 40 03/22/17 03:31 100 40 03/22/17 02:00 107 03/22/17 00:00 98.4 94 15 105/51 100 03/22/17 00:00 40 03/22/17 00:00 94 03/21/17 23:28 99 40 03/21/17 22:00 124 03/21/17 20:00 109 03/21/17 20:00 99.3 115 15 140/73 99 03/21/17 20:00 40 03/21/17 19:31 100 40 03/21/17 18:00 102 03/21/17 16:27 98 40 03/21/17 03/22/17 18:59 06:59 Intake Total 588 ml 2034 ml Output Total 700 ml 425 ml Balance -112 ml 1609 ml Intake IV Total 588 ml 1641 ml Tube Feeding 353 ml Other 40 ml Output Urine Total 450 ml 425 ml Stool Total 0 ml 0 ml Gastric Drainage Total 250 ml Exam CONSTITUTIONAL/GENERAL: This is an adequately nourished patient. Mechanically ventilated. TUBES/LINES/DRAINS: ETT, OGT, PIV right, SCD, harris, wrist restraints SKIN: No jaundice, rashes, or lesions. Skin pale. No wounds seen anteriorly. Skin temperature appropriate. He is diaphoretic. HEAD: Atraumatic. Normocephalic. EYES: Pupils unequal, right greater than left with brisk reaction on sedation. Extraocular motions intact. No scleral icterus. No injection or drainage. Fundi not examined. ENT: Unable to assess due to ETT and sedation. Bilateral nares without drainage. NECK: Trachea midline. Supple, nontender. No palpable thyroid enlargement or nodularity. CARDIOVASCULAR: Sinus tach,no murmur gallops, or rubs. No JVD. Peripheral pulses symmetric. RESPIRATORY/CHEST: Asynchronous, unlabored respirations. Clear to auscultation. Breath sounds equal bilaterally. No wheezes, rales, or rhonchi. GASTROINTESTINAL: Abdomen soft, nondistended. No hepato-splenomegaly, or palpable masses. No guarding. active bowel sounds. OGT, tolerating tube feedings. GENITOURINARY: Without palpable bladder distension. Harris catheter in place. Adequate clear yellow urine. MUSCULOSKELETAL: Extremities without clubbing, cyanosis, or edema. No mottling or clubbing. LYMPHATICS: No palpable cervical or supraclavicular adenopathy. NEUROLOGICAL: Intubated and sedated. Does not follow commands. Slow withdraw to noxious stimulation. PSYCHIATRIC: Sedated. Diagnostic Tests Laboratory Laboratory Tests Test 03/19/17 03/19/17 03/19/17 03/20/17 18:30 18:45 20:25 00:10 Prothrombin Time 11.4 SEC (9.8-11.6) Prothromb Time International 1.0 RATIO Ratio Activated Partial 30.8 SEC Thromboplast Time (24.3-30.1) Fibrinogen 579 mg/dL (227-377) White Blood Count 10.4 TH/MM3 (4.0-11.0) Red Blood Count 4.82 MIL/MM3 (4.50-5.90) Hemoglobin 13.7 GM/DL (13.0-17.0) Bedside Hemoglobin 13.9 G/DL (12.0-17.0) Hematocrit 41.4 % (39.0-51.0) Bedside Hematocrit 41.0 % (38.0-51.0) Mean Corpuscular Volume 85.8 FL (80.0-100.0) Mean Corpuscular Hemoglobin 28.5 PG (27.0-34.0) Mean Corpuscular Hemoglobin 33.2 % Concent (32.0-36.0) Red Cell Distribution Width 13.1 % (11.6-17.2) Platelet Count 464 TH/MM3 (150-450) Mean Platelet Volume 8.1 FL (7.0-11.0) Neutrophils (%) (Auto) 62.9 % (16.0-70.0) Lymphocytes (%) (Auto) 27.1 % (9.0-44.0) Monocytes (%) (Auto) 7.1 % (0.0-8.0) Eosinophils (%) (Auto) 2.1 % (0.0-4.0) Basophils (%) (Auto) 0.8 % (0.0-2.0) Neutrophils # (Auto) 6.5 TH/MM3 (1.8-7.7) Lymphocytes # (Auto) 2.8 TH/MM3 (1.0-4.8) Monocytes # (Auto) 0.7 TH/MM3 (0-0.9) Eosinophils # (Auto) 0.2 TH/MM3 (0-0.4) Basophils # (Auto) 0.1 TH/MM3 (0-0.2) CBC Comment DIFF FINAL Differential Comment Bedside Sodium 135 MMOL/L (138-146) Bedside Potassium 4.1 MMOL/L (3.5-4.9) Bedside Chloride 99 MMOL/L (98-109) Bedside Blood Urea Nitrogen 8 MG/DL (8-26) Bedside Creatinine 0.7 MG/DL (0.8-1.3) Bedside Glucose 112 MG/DL (60-95) Total Creatine Kinase 73 U/L (39-308) Troponin I LESS THAN 0.02 NG/ML (0.02-0.05) Blood Type A POSITIVE Antibody Screen NEGATIVE Blood Bank Comment Lactic Acid Level 3.1 mmol/L 2.1 mmol/L (0.4-2.0) (0.4-2.0) Test 03/20/17 03/20/17 03/20/17 03/20/17 02:30 04:59 06:00 10:14 Nasal Screen MRSA (PCR) MRSA NOT DETECTED (NOT DETECT) White Blood Count 9.9 TH/MM3 (4.0-11.0) Red Blood Count 4.14 MIL/MM3 (4.50-5.90) Hemoglobin 11.8 GM/DL (13.0-17.0) Hematocrit 35.7 % (39.0-51.0) Mean Corpuscular Volume 86.3 FL (80.0-100.0) Mean Corpuscular Hemoglobin 28.6 PG (27.0-34.0) Mean Corpuscular Hemoglobin 33.1 % Concent (32.0-36.0) Red Cell Distribution Width 12.9 % (11.6-17.2) Platelet Count 419 TH/MM3 (150-450) Mean Platelet Volume 7.9 FL (7.0-11.0) Neutrophils (%) (Auto) 68.0 % (16.0-70.0) Lymphocytes (%) (Auto) 22.9 % (9.0-44.0) Monocytes (%) (Auto) 7.2 % (0.0-8.0) Eosinophils (%) (Auto) 0.4 % (0.0-4.0) Basophils (%) (Auto) 1.5 % (0.0-2.0) Neutrophils # (Auto) 6.7 TH/MM3 (1.8-7.7) Lymphocytes # (Auto) 2.3 TH/MM3 (1.0-4.8) Monocytes # (Auto) 0.7 TH/MM3 (0-0.9) Eosinophils # (Auto) 0.0 TH/MM3 (0-0.4) Basophils # (Auto) 0.1 TH/MM3 (0-0.2) CBC Comment DIFF FINAL Differential Comment Sodium Level 140 MEQ/L (136-145) Potassium Level 3.6 MEQ/L (3.5-5.1) Chloride Level 107 MEQ/L (98-107) Carbon Dioxide Level 23.6 MEQ/L (21.0-32.0) Anion Gap 9 MEQ/L (5-15) Blood Urea Nitrogen 7 MG/DL (7-18) Creatinine 0.66 MG/DL (0.60-1.30) Estimat Glomerular Filtration 124 ML/MIN Rate (>89) Random Glucose 111 MG/DL (74-106) Calcium Level 8.9 MG/DL (8.5-10.1) Phosphorus Level 2.0 MG/DL (2.5-4.9) Magnesium Level 1.9 MG/DL (1.5-2.5) Total Bilirubin 0.2 MG/DL (0.2-1.0) Aspartate Amino Transf 18 U/L (15-37) (AST/SGOT) Alanine Aminotransferase 27 U/L (12-78) (ALT/SGPT) Alkaline Phosphatase 172 U/L (45-117) Total Creatine Kinase 170 U/L (39-308) Creatine Kinase MB 1.2 NG/ML (0.5-3.6) Troponin I LESS THAN 0.02 NG/ML (0.02-0.05) Total Protein 7.2 GM/DL (6.4-8.2) Albumin 3.2 GM/DL (3.4-5.0) Urine Color YELLOW (YELLW/STRAW) Urine Turbidity CLEAR (CLEAR) Urine pH 7.5 (5.0-8.5) Urine Specific [place] 1.030 (1.002-1.035) Urine Protein NEG mg/dL (NEG-TRACE) Urine Glucose (UA) NEG mg/dL (NEG) Urine Ketones NEG mg/dL (NEG) Urine Occult Blood NEG (NEG) Urine Nitrite NEG (NEG) Urine Bilirubin NEG (NEG) Urine Urobilinogen LESS THAN 2.0 MG/DL (LESS THAN 2.0) Urine Leukocyte Esterase NEG (NEG) Urine WBC 1 /hpf (0-5) Microscopic Urinalysis Comment CULT NOT INDICATED Urine Opiates Screen NEG (NEG) Urine Barbiturates Screen NEG (NEG) Urine Amphetamines Screen NEG (NEG) Urine Benzodiazepines Screen NEG (NEG) Urine Cocaine Screen NEG (NEG) Urine Cannabinoids Screen POS (NEG) Blood Gas Puncture Site LT RADIAL Blood Gas Patient Temperature 98.6 Blood Gas HCO3 22 mmol/L (22-26) Blood Gas Base Excess -2.4 mmol/L (-2-2) Blood Gas Oxygen Saturation 96 % (90-100) Arterial Blood pH 7.40 (7.380-7.420) Arterial Blood Partial 36 mmHg (38-42) Pressure CO2 Arterial Blood Partial 110 mmHg Pressure O2 (61-120) Arterial Blood Oxygen Content 17.0 Vol % (12.0-20.0) Arterial Blood 1.0 % (0-4) Carboxyhemoglobin Arterial Blood Methemoglobin 1.1 % (0-2) Blood Gas Hemoglobin 12.5 G/DL (12.0-16.0) Oxygen Delivery Device NASAL CANNULA Blood Gas Liter Flow 2 L/M Blood Gas Inspired Oxygen 28 % Test 03/20/17 03/20/17 03/21/17 03/21/17 14:19 15:48 03:30 03:44 Phosphorus Level 3.1 MG/DL 2.9 MG/DL (2.5-4.9) (2.5-4.9) Ammonia 43 MCMOL/L (11-32) Triglycerides Level 181 MG/DL (42-150) Cholesterol Level 194 MG/DL (120-200) LDL Cholesterol 124 MG/DL (0-99) HDL Cholesterol 33.4 MG/DL (40.0-60.0) Cholesterol/HDL Ratio 5.80 RATIO Blood Gas Puncture Site LT BRACHIAL Blood Gas Patient Temperature 98.6 Blood Gas HCO3 20 mmol/L (22-26) Blood Gas Base Excess -3.9 mmol/L (-2-2) Blood Gas Oxygen Saturation 96 % (90-100) Arterial Blood pH 7.37 (7.380-7.420) Arterial Blood Partial 36 mmHg (38-42) Pressure CO2 Arterial Blood Partial 101 mmHg Pressure O2 (61-120) Arterial Blood Oxygen Content 17.4 Vol % (12.0-20.0) Arterial Blood 0.8 % (0-4) Carboxyhemoglobin Arterial Blood Methemoglobin 1.1 % (0-2) Blood Gas Hemoglobin 12.8 G/DL (12.0-16.0) Oxygen Delivery Device VENTILATOR Blood Gas Ventilator Setting Blood Gas Inspired Oxygen 50 % Sodium Level 135 MEQ/L (136-145) Potassium Level 3.1 MEQ/L (3.5-5.1) Chloride Level 102 MEQ/L (98-107) Carbon Dioxide Level 19.9 MEQ/L (21.0-32.0) Anion Gap 13 MEQ/L (5-15) Blood Urea Nitrogen 6 MG/DL (7-18) Creatinine 0.49 MG/DL (0.60-1.30) Estimat Glomerular Filtration 175 ML/MIN Rate (>89) Random Glucose 109 MG/DL (74-106) Calcium Level 9.1 MG/DL (8.5-10.1) Magnesium Level 1.8 MG/DL (1.5-2.5) Total Bilirubin 0.3 MG/DL (0.2-1.0) Aspartate Amino Transf 19 U/L (15-37) (AST/SGOT) Alanine Aminotransferase 23 U/L (12-78) (ALT/SGPT) Alkaline Phosphatase 164 U/L (45-117) Total Protein 7.1 GM/DL (6.4-8.2) Albumin 3.2 GM/DL (3.4-5.0) White Blood Count 14.0 TH/MM3 (4.0-11.0) Red Blood Count 4.05 MIL/MM3 (4.50-5.90) Hemoglobin 11.8 GM/DL (13.0-17.0) Hematocrit 35.0 % (39.0-51.0) Mean Corpuscular Volume 86.4 FL (80.0-100.0) Mean Corpuscular Hemoglobin 29.2 PG (27.0-34.0) Mean Corpuscular Hemoglobin 33.8 % Concent (32.0-36.0) Red Cell Distribution Width 13.0 % (11.6-17.2) Platelet Count 431 TH/MM3 (150-450) Mean Platelet Volume 8.5 FL (7.0-11.0) Neutrophils (%) (Auto) 80.6 % (16.0-70.0) Lymphocytes (%) (Auto) 13.0 % (9.0-44.0) Monocytes (%) (Auto) 5.7 % (0.0-8.0) Eosinophils (%) (Auto) 0.1 % (0.0-4.0) Basophils (%) (Auto) 0.6 % (0.0-2.0) Neutrophils # (Auto) 11.3 TH/MM3 (1.8-7.7) Lymphocytes # (Auto) 1.8 TH/MM3 (1.0-4.8) Monocytes # (Auto) 0.8 TH/MM3 (0-0.9) Eosinophils # (Auto) 0.0 TH/MM3 (0-0.4) Basophils # (Auto) 0.1 TH/MM3 (0-0.2) CBC Comment DIFF FINAL Differential Comment Prothrombin Time 11.3 SEC (9.8-11.6) Prothromb Time International 1.0 RATIO Ratio Procalcitonin 0.06 ng/mL (0.00-0.50) Test 03/21/17 03/22/17 03/22/17 15:35 04:50 06:04 Potassium Level 4.2 MEQ/L 3.2 MEQ/L (3.5-5.1) (3.5-5.1) Blood Gas Puncture Site LT RADIAL Blood Gas Patient Temperature 98.6 Blood Gas HCO3 23 mmol/L (22-26) Blood Gas Base Excess -1.4 mmol/L (-2-2) Blood Gas Oxygen Saturation 98 % (90-100) Arterial Blood pH 7.39 (7.380-7.420) Arterial Blood Partial 38 mmHg (38-42) Pressure CO2 Arterial Blood Partial 165 mmHg Pressure O2 (61-120) Arterial Blood Oxygen Content 21.4 Vol % (12.0-20.0) Arterial Blood 0.7 % (0-4) Carboxyhemoglobin Arterial Blood Methemoglobin 0.8 % (0-2) Blood Gas Hemoglobin 15.4 G/DL (12.0-16.0) Oxygen Delivery Device VENTILATOR Blood Gas Ventilator Setting PRVC/AC Blood Gas Inspired Oxygen 40 % White Blood Count 8.8 TH/MM3 (4.0-11.0) Red Blood Count 3.86 MIL/MM3 (4.50-5.90) Hemoglobin 11.0 GM/DL (13.0-17.0) Hematocrit 33.3 % (39.0-51.0) Mean Corpuscular Volume 86.3 FL (80.0-100.0) Mean Corpuscular Hemoglobin 28.5 PG (27.0-34.0) Mean Corpuscular Hemoglobin 33.0 % Concent (32.0-36.0) Red Cell Distribution Width 13.0 % (11.6-17.2) Platelet Count 378 TH/MM3 (150-450) Mean Platelet Volume 8.1 FL (7.0-11.0) Sodium Level 141 MEQ/L (136-145) Chloride Level 107 MEQ/L (98-107) Carbon Dioxide Level 22.7 MEQ/L (21.0-32.0) Anion Gap 11 MEQ/L (5-15) Blood Urea Nitrogen 7 MG/DL (7-18) Creatinine 0.60 MG/DL (0.60-1.30) Estimat Glomerular Filtration 138 ML/MIN Rate (>89) Random Glucose 94 MG/DL (74-106) Calcium Level 8.9 MG/DL (8.5-10.1) Phosphorus Level 2.6 MG/DL (2.5-4.9) Magnesium Level 1.9 MG/DL (1.5-2.5) Result Diagram: 03/22/17 0604 03/22/17 0604 Microbiology Microbiology Date/Time Procedure Status Source Growth 03/19/17 23:05 Aerobic Blood Culture - Preliminary Resulted Blood Peripheral Staph Sp Coagulase Negative 03/19/17 23:05 Anaerobic Blood Culture - Preliminary Resulted Staph Sp Coagulase Negative 03/19/17 23:05 Aerobic Blood Culture - Preliminary Resulted Blood Peripheral NO GROWTH IN 3 DAYS 03/19/17 23:05 Anaerobic Blood Culture - Preliminary Resulted Blood Peripheral NO GROWTH IN 3 DAYS 03/20/17 11:15 Urine Culture - Final Complete Urine Catheterized Urine NO GROWTH IN 48 HOURS. 03/20/17 16:00 Gram Stain - Final Resulted Sputum Endotracheal 03/20/17 16:00 Sputum Culture - Preliminary Resulted Sputum Endotracheal HEAVY GROWTH NORMAL RESPIRATORY CAROL ANN... 7/13/17 03:30 Aerobic Blood Culture - Preliminary Resulted Blood Peripheral NO GROWTH IN 1 DAY 03/21/17 03:30 Anaerobic Blood Culture - Preliminary Resulted Blood Peripheral NO GROWTH IN 1 DAY 03/21/17 03:44 Aerobic Blood Culture - Preliminary Resulted Blood Peripheral NO GROWTH IN 1 DAY 03/21/17 03:44 Anaerobic Blood Culture - Preliminary Resulted Blood Peripheral NO GROWTH IN 1 DAY Imaging Last Impressions Chest X-Ray 03/20/17 0000 Signed Impressions: Service Date/Time: Monday, March 20, 2017 14:31 - CONCLUSION: Endotracheal tube. Left lower lobe infiltrate. Wiliam Santizo Jr., MD Brain MRI 03/20/17 0000 Signed Impressions: Service Date/Time: Monday, March 20, 2017 12:12 - CONCLUSION: 1. There is an area of acute cortical infarct involving the caudate nucleus on the right. 2. Old infarct involving the caudate on the left. 3. Limited exam due to motion artifact Adolph Pepe MD Abdomen/Pelvis CT 03/20/17 0000 Signed Impressions: Service Date/Time: March 09:13 - CONCLUSION: 1. Negative CT scan of the abdomen and pelvis. Adolph Pepe MD Neck CTA 03/19/17 0000 Signed Impressions: Service Date/Time: Sunday, March 19, 2017 20:09 - CONCLUSION: Atherosclerotic plaque without a hemodynamically significant stenosis involving either carotid artery or vertebral artery. Wiliam Santizo Jr., MD Head CTA 03/19/17 0000 Signed Impressions: Service Date/Time: Sunday, March 19, 2017 20:09 - CONCLUSION: 1. Diffuse atherosclerotic plaque without a hemodynamically significant stenosis. Wiliam Santizo Jr., MD Head CT 03/19/17 0000 Signed Impressions: Service Date/Time: Sunday, March 19, 2017 18:30 - CONCLUSION: 1. No acute intracranial abnormality. 2. Areas of chronic lacunar infarction as detailed above. Wiliam Santizo Jr., MD Procedures 03/20/17: Intubated, harris placed 03/21/17: EEG mild diffuse encephalopathy Patient/Family Conference Present at Family Conference: Spoke with via phone. Family Conference Time (mins): 25 Family Conference Location: Telephone Issues Discussed: Spoke with via phone to introduce Palliative care service. She is very appreciative. She provided additional history, seems to have a good understanding of clinical condition. She is tearful when talking about current status. She requests meeting on 03/25/17 at 10am. Palliative care number provided. . Assessment and Plan Disease Oriented Problem List: (1) Acute CVA (cerebrovascular accident) (2) Aphasia (3) Dysphagia due to recent stroke (4) Hemiplegia affecting dominant side (5) Impaired mobility and activities of daily living (6) Anxiety Symptom Scale: (1) Pain 0-10 Scale: Unable to quantify (2) Dyspnea 0-10 Scale: Unable to quantify (3) Anxiety 0-10 Scale: Unable to quantify Pertinent Non-Medical Issues Psychosocial: with one son. Spiritual: Adventist Legal: Incapacitated and not expected to regain capacity. HCP . Ethical issues impacting care: None Important Contacts : Leonor ([phone]) . Prognosis 57 year old male with a history of 2 previous strokes in the past 6 months (Nov and Aug). Currently admitted with basal ganglia infarct. Patient remains critically-ill in the ICU mechanically intubated and sedated. Overall prognosis is poor. Code Status: No Code Plan * Patient is currently incapacitated and not expected to regain capacity. Per [place] Statutes, healthcare proxy falls to . * NO CODE. * Spoke with via phone to introduce Palliative care service. She is very appreciative. She provided additional history, seems to have a good understanding of clinical condition. She is tearful when talking about current status. * Palliative care/ family meeting arranged per family request on 03/25/17 at 10am. * SYMPTOMS: dyspnea: on mech vent. Pain: due to stroke, intubation. bedbound status. On Fentanyl drip. Appears comfortable. No new medication recommendations at this time. * Palliative care number provided. . Thank you for the opportunity to participate in the care of Mr. Croft. Attestation To help prompt me to consider important information that might be impacting today's encounter and assessment, information from prior notes written by myself or my colleagues may have been "brought forward" into today's note. My signature on this note, however, is an attestation that I personally performed the exam, history, and/or decision-making noted today, and, unless otherwise indicated, the interactions with patient, family, and staff as well as the review of records all occurred today. I also attest that the listed assessment and stated plan reflect my best clinical judgment today based on the combination of historical information, prior notes, and today's exam/ interactions. When time spent is documented, it refers only to time spent today by the signer, or if indicated, combined time spent today by collaborating physician/nurse practitioner. Suzanna Dueñas Mar 22, 2017 17:26
[2017-03-22] MEDS: BACLOFEN 10 MG TAB PO SCH (21:22)
[2017-03-22] MEDS: ATORVASTATIN 10 MG TAB PO SCH (21:23)
[2017-03-23] VITALS (19 sets, daily range): BP systolic 97–116; BP diastolic 56–71; PULSE 87–122; RESP 14–17; TEMP 97.6–99.6; O2SAT 99–100
[2017-03-23] MEDS: fentaNYL DRIP 250 ML IV SCH ×2 (02:26→20:39)
[2017-03-23] MEDS: PROPOFOL 1000 MG/100 ML INJ 100 ML IV SCH ×2 (02:26→20:38)
[2017-03-23] MEDS: CHLORHEXIDINE GLUCONATE 2 % 1 PACK (2 CLOTHS) TOP SCH (02:27)
[2017-03-23 04:42] LABS: BLOOD GAS BASE EXCESS -1.3 mmol/L (-2-2); BLOOD GAS CARBOXYHEMOGLOBIN 0.9 % (0-4); BLOOD GAS HCO3 24 mmol/L (22-26); BLOOD GAS METHEMOGLOBIN 0.9 % (0-2); BLOOD GAS O2 HGB SATURATION 97 % (90-100); BLOOD GAS OXYGEN CONTENT 14.8 Vol % (12.0-20.0); BLOOD GAS PCO2 43 mmHg (38-42); BLOOD GAS PO2 128 mmHg (61-120); BLOOD GAS TOTAL HGB 10.7 G/DL (12.0-16.0); CRITICAL VALUE NO; OXYGEN DEVICE VENTILATOR; TEMP CORR TO 98.6
[2017-03-23 04:43] LABS: DRAW SITE RT BRACHIAL; FIO2 45 %; NUMBER OF ARTERIAL PUNCTURES 2; STAT NO; VENT SETTINGS PRVC/AV
[2017-03-23 05:35] LABS: MEAN CORPUSCULAR HEMOGLOBIN 29.4 PG (27.0-34.0); MEAN CORPUSCULAR HGB CONC 33.4 % (32.0-36.0); PLATELET COUNT 372 TH/MM3 (150-450); RED BLOOD COUNT 3.64 MIL/MM3 (4.50-5.90); RED CELL DISTRIBUTION WIDTH 13.2 % (11.6-17.2); REVIEW FLAG FINAL; WHITE BLOOD COUNT 9.7 TH/MM3 (4.0-11.0)
[2017-03-23 06:09] LABS: BICARBONATE 22.8 MEQ/L (21.0-32.0); MAGNESIUM 1.8 MG/DL (1.5-2.5); POTASSIUM 3.7 MEQ/L (3.5-5.1)
[2017-03-23] MEDS: INSULIN ASPART SUPPLEMENTAL SCALE SQ SCH ×4 (06:20→21:00)
[2017-03-23] MEDS: RESP: ALBUTEROL 2.5 MG/IPRATROPIUM 0.5 MG NEB (SCH) NEB ×3 (07:43→20:14)
[2017-03-23] MEDS: CHLORHEXIDINE 0.12% (ORAL KIT) 15 ML CUP MT SCH ×2 (07:58→20:40)
[2017-03-23] MEDS: FAMOTIDINE 20 MG/2 ML VIAL IV PUSH SCH ×2 (08:18→20:39)
[2017-03-23] MEDS: levETIRAcetam INJ 500 MG in SODIUM CHLORIDE 0.9% INJ 100 ML IV SCH ×2 (08:18→20:39)
[2017-03-23] MEDS: SERTRALINE HCL 50 MG TAB PO SCH (08:18)
[2017-03-23] MEDS: PRAVASTATIN SOD 80 MG TAB PO SCH (08:18)
[2017-03-23] MEDS: CLOPIDOGREL 75 MG TAB PO SCH (08:18)
[2017-03-23] MEDS: SODIUM CHLORIDE 0.9% FLUSH 5 ML FLUSH IV FLUSH SCH ×2 (08:18→20:40)
[2017-03-23] MEDS: DOCUSATE SODIUM 50 MG/SENNA 8.6 MG TAB PO SCH ×2 (08:18→20:40)
[2017-03-23] MEDS: SODIUM CHLORIDE 0.9% FLUSH 10 ML FLUSH SCH ×2 (08:19→20:39)
[2017-03-23] MEDS: ARTIFICIAL TEARS OPTH SOLN 15 ML BTL EACH EYE SCH ×3 (08:19→17:23)
[2017-03-23] MEDS: LISINOPRIL 5 MG TAB PO SCH (08:19)
[2017-03-23] MEDS: SODIUM CHLOR 0.9% 1000 ML INJ 1,000 ML IV SCH ×2 (11:29→22:13)
[2017-03-23] MEDS: HEPARIN SODIUM - SQ 10,000 UNITS/ML VIAL SQ SCH ×2 (11:30→23:53)
--- NOTE | 2017-03-23 13:03 | HHI.IDPN ---
Subjective Subjective Remarks ID Xcover for Dr Peters chart reviewd Patient is a 57-year-old male, with multiple CVAs, acute VDRF, PNA His chest x-ray showing a left days infiltrate. He is on CFTX RN notified me this a on + blood clx [facility] Notes reviewed D/W RN afebrile Normal BP on vent, not much secreions WBC normal blood clx with Staph epui in one set 1/2; Staph hominis 2./2 in another set Antibiotics Rocephin Lines PIV Past Medical History Anxiety Arthritis CVA last Aug 2016 HTN Past Surgical History Hernia repair Allergies: Coded Allergies: No Known Allergies (Verified , 03/19/17) Objective . Vital Signs Date Time Temp Pulse Resp B/P Pulse Ox O2 Delivery O2 Flow Rate FiO2 03/23/17 11:36 100 40 03/23/17 10:00 95 03/23/17 08:00 98 03/23/17 08:00 40 03/23/17 08:00 98.5 90 14 97/56 100 03/23/17 07:45 35 03/23/17 07:40 100 45 03/23/17 06:00 87 03/23/17 04:00 40 03/23/17 04:00 97.6 88 14 98/66 100 03/23/17 04:00 88 03/23/17 03:36 100 45 03/23/17 02:00 104 03/23/17 00:21 100 45 03/23/17 00:00 40 03/23/17 00:00 98.5 104 15 110/70 100 03/23/17 00:00 104 03/22/17 22:00 102 03/22/17 20:17 100 45 03/22/17 20:00 98.3 92 14 111/29 99 03/22/17 20:00 97 03/22/17 20:00 40 03/22/17 18:30 96 45 03/22/17 18:00 95 03/22/17 16:00 98.4 108 14 92/61 97 03/22/17 16:00 40 03/22/17 16:00 108 03/22/17 15:30 45 03/22/17 14:00 101 03/22/17 13:15 35 03/22/17 13:10 100 35 03/22/17 13:10 35 03/22/17 03/22/17 03/23/17 15:00 23:00 07:00 Intake Total 2082 ml 1316 ml 1179 ml Output Total 350 ml 350 ml 250 ml Balance 1732 ml 966 ml 929 ml Intake IV Total 1653 ml 968 ml 865 ml Tube Feeding 309 ml 228 ml 254 ml Tube Irrigant 120 ml 120 ml 60 ml Output Urine Total 350 ml 350 ml 250 ml Stool Total 0 ml 0 ml . Laboratory Tests Test 03/22/17 03/23/17 06:04 04:44 White Blood Count 8.8 TH/MM3 9.7 TH/MM3 Red Blood Count 3.86 MIL/MM3 3.64 MIL/MM3 Hemoglobin 11.0 GM/DL 10.7 GM/DL Hematocrit 33.3 % 32.0 % Mean Corpuscular Volume 86.3 FL 88.0 FL Mean Corpuscular Hemoglobin 28.5 PG 29.4 PG Mean Corpuscular Hemoglobin 33.0 % 33.4 % Concent Red Cell Distribution Width 13.0 % 13.2 % Platelet Count 378 TH/MM3 372 TH/MM3 Mean Platelet Volume 8.1 FL 7.6 FL Laboratory Tests Test 03/21/17 03/22/17 03/22/17 03/23/17 15:35 06:04 20:39 04:44 Potassium Level 4.2 MEQ/L 3.2 MEQ/L 4.1 MEQ/L 3.7 MEQ/L Sodium Level 141 MEQ/L 137 MEQ/L Chloride Level 107 MEQ/L 107 MEQ/L Carbon Dioxide Level 22.7 MEQ/L 22.8 MEQ/L Anion Gap 11 MEQ/L 7 MEQ/L Blood Urea Nitrogen 7 MG/DL 6 MG/DL Creatinine 0.60 MG/DL 0.43 MG/DL Estimat Glomerular Filtration 138 ML/MIN 203 ML/MIN Rate Random Glucose 94 MG/DL 98 MG/DL Calcium Level 8.9 MG/DL 8.7 MG/DL Phosphorus Level 2.6 MG/DL 2.6 MG/DL Magnesium Level 1.9 MG/DL 1.8 MG/DL Microbiology Date/Time Procedure Status Source Growth 03/20/17 16:00 Gram Stain - Final Resulted Sputum Endotracheal 03/20/17 16:00 Sputum Culture - Preliminary Resulted Sputum Endotracheal HEAVY GROWTH NORMAL RESPIRATORY JAZZ... 03/21/17 03:30 Aerobic Blood Culture - Preliminary Resulted Blood Peripheral NO GROWTH IN 2 DAYS 03/21/17 03:30 Anaerobic Blood Culture - Preliminary Resulted Blood Peripheral NO GROWTH IN 2 DAYS 03/21/17 03:44 Aerobic Blood Culture - Preliminary Resulted Blood Peripheral NO GROWTH IN 2 DAYS 03/21/17 03:44 Anaerobic Blood Culture - Preliminary Resulted Blood Peripheral NO GROWTH IN 2 DAYS Imaging Last Impressions Chest X-Ray 03/22/17 0600 Signed Impressions: Service Date/Time: Wednesday, March 22, 2017 03:51 - CONCLUSION: 1. Endotracheal tube in good position. The lungs are clear. Sloan Garay MD Brain MRI 03/20/17 0000 Signed Impressions: Service Date/Time: Monday, March 20, 2017 12:12 - CONCLUSION: 1. There is an area of acute cortical infarct involving the caudate nucleus on the right. 2. Old infarct involving the caudate on the left. 3. Limited exam due to motion artifact Adolph Pepe MD Abdomen/Pelvis CT 03/20/17 0000 Signed Impressions: Service Date/Time: March 09:13 - CONCLUSION: 1. Negative CT scan of the abdomen and pelvis. Adolph Pepe MD Neck CTA 03/19/17 0000 Signed Impressions: Service Date/Time: Sunday, March 19, 2017 20:09 - CONCLUSION: Atherosclerotic plaque without a hemodynamically significant stenosis involving either carotid artery or vertebral artery. Wiliam Santizo Jr., MD Head CTA 03/19/17 0000 Signed Impressions: Service Date/Time: Sunday, March 19, 2017 20:09 - CONCLUSION: 1. Diffuse atherosclerotic plaque without a hemodynamically significant stenosis. Wiliam Santizo Jr., MD Head CT 03/19/17 0000 Signed Impressions: Service Date/Time: Sunday, March 19, 2017 18:30 - CONCLUSION: 1. No acute intracranial abnormality. 2. Areas of chronic lacunar infarction as detailed above. Wiliam Santizo Jr., MD Physical Exam GENERAL: Open eyes when stimulated, intubated, not in respiratory distress. SKIN: Cool and dry. No generalized rash, no ecchymoses and no evidence of embolic lesions. HEAD: Atraumatic. Normocephalic. No temporal wasting, or tenderness. EYES: [place] conjunctiva. No petechia or hemorrhage. Pupils equal, round and reactive to light. No scleral icterus. No injection or drainage. EARS, NOSE AND THROAT: Nose without bleeding or purulent nasal discharge. Endotracheal tube is in the mouth. NECK: Trachea midline. Supple and not tender, no meningeal signs. No new crit rigidity. CARDIOVASCULAR: Reg rate and rhythms no murmurs, rubs gallops RESPIRATORY: Rhonchi bilaterally. ABDOMEN: Soft, nondistended, bowel sounds present and normoactive. No reaction to deep palpation. No guarding. No organomegaly. EXTREMITIES: No clubbing, cyanosis, + trace edema. Warm feet. NEUROLOGICAL: Opens eyes when stimulated. NOt following commnds No ankle clonus. Pupils equal and reactive to light. PSYCHIATRIC: Unable to assess LINE: No evidence of infection : Zimmemran in place, urine looks clear Assessment & Plan Remarks IMPRESSION Acute CVA, - recurrent CVA, Acute VDRF, not tolarating CPAP L base infiltrate, possible aspiration PNA - nl resp jazz on sputum clx Urinary retention Hypertension Coag Neg Staph bactermia , different stains, Staph epi and Staph hominins most cw contaminant RECOMMENDATION cont IV Rocephin empirically for PNA - give 7 days no need no add vancomycin at this point will repeat blood clx if clinically indicated (fever, unexplained leukocytosis ets) D/W RN Samanta Andre Dr, MD Mar 23, 2017 13:03
--- NOTE | 2017-03-23 14:45 | HHI.CCPN ---
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 Per patient's he has right sided upper extremity paralysis and left lower extremity weakness secondary to his stroke. She states he has had some slurred speech but not to the degree that it began 45 minutes ago. Is concerned patient is having a recurrent stroke. He is on Plavix and aspirin at home. Patient denies any headache. No chest or tightness. No difficulty breathing. Patient has not been recently ill. He has been on by mouth baclofen for contractures, however he wasn't able to take those pills for last 24 hours due to difficulty swallowing. Subjective: 03/20; Afebrile. Upon evaluation this a.m., the patient completely aphasic, not responding to any commands. Diaphoretic, and tachycardic. CT brain was negative. Pending MRI this a.m.. Patient has received thus far since admission to the hospital noted Ativan 5 mg in conjunction with 2 mg of morphine in the emergency department. EEG currently underway. Neurology has been consulted. Patient was noted have bladder outlet obstruction previously, Minimal urine output with condom catheter, Zimmerman inserted with slight difficulty now adequate drainage. No seizure activity noted only spasticity at this time, patient continues on baclofen. 03/21: MRI revealed acute right caudate region infarct. Hypercoagulable bowel studies obtained per neurology Dr. Gonzalez, following. Patient previously complained of pelvic pain CT of the abdomen and pelvis results negative. Patient maintaining blood pressure within normal ranges. The patient continues on Plavix. ID consulted, Dr. Peters following. 03/22: Afebrile. Sedation minimized today. Patient is able to utilize left arm in follow commands. Propofol infusion discontinued Right upper extremity continue spasticity, with weakness but movement of hands to follow my commands. CPAP trials initiated today. Family meeting between this afternoon, and per patient's wishes, CODE STATUS changed to DNR. Palliative care consult initiated. Plan for family meeting on Saturday. Family states patient would not want a tracheostomy or PEG tube placement. I discussed with them the possibility of a trial of extubation, later in the week. 03/23: Afebrile. The patient fell CPAP trials this a.m.. Tube feeds at 30 cc noted large amount of residual 200 cc this a.m. Metoclopramide initiated. Blood culture was noted to have gram-positive cocci, resulted staph epidermidis , possible contaminant . Objective Vital Signs Date Time Temp Pulse Resp B/P Pulse Ox O2 Delivery O2 Flow Rate FiO2 03/23/17 14:00 104 03/23/17 12:00 40 03/23/17 12:00 99.1 17 116/71 99 03/20/17 09:37 Nasal Cannula 2.00 Intake and Output 03/22/17 03/22/17 03/22/17 07:59 15:59 23:59 Intake Total 962 ml 2082 ml 1316 ml Output Total 200 ml 350 ml 350 ml Balance 762 ml 1732 ml 966 ml Result Diagram: 03/23/17 0444 03/23/17 0444 Other Results Microbiology Date/Time Procedure Status Source Growth 03/20/17 16:00 Gram Stain - Final Complete Sputum Endotracheal 03/20/17 16:00 Sputum Culture - Final Complete Sputum Endotracheal HEAVY GROWTH NORMAL RESPIRATORY CAROL [facility] Laboratory Tests Test 03/23/17 04:30 Blood Gas Puncture Site RT BRACHIAL Blood Gas Patient Temperature 98.6 Blood Gas HCO3 24 mmol/L (22-26) Blood Gas Base Excess -1.3 mmol/L (-2-2) Blood Gas Oxygen Saturation 97 % (90-100) Arterial Blood pH 7.35 (7.380-7.420) Arterial Blood Partial 43 mmHg (38-42) Pressure CO2 Arterial Blood Partial 128 mmHg Pressure O2 (61-120) Arterial Blood Oxygen Content 14.8 Vol % (12.0-20.0) Arterial Blood 0.9 % (0-4) Carboxyhemoglobin Arterial Blood Methemoglobin 0.9 % (0-2) Blood Gas Hemoglobin 10.7 G/DL (12.0-16.0) Oxygen Delivery Device VENTILATOR Blood Gas Ventilator Setting PRVC/AV Blood Gas Inspired Oxygen 45 % Objective Remarks Infusions Diprivan 20 mcgs/hr Fentanyl 100 mcgs/hr Normal saline 84 cc/hour GENERAL: Well-nourished male patient, lying in bed, intubated and sedated SKIN: Warm and dry HEAD: Atraumatic. Normocephalic. EYES: Pupils equal and round. No scleral icterus. No injection or drainage. ENT: No nasal bleeding or discharge. Mucous membranes pink and moist. Orotracheally intubated NECK: Trachea midline. No JVD. CARDIOVASCULAR: Telemetry normal rate and rhythm. RESPIRATORY: No accessory muscle use. Clear to auscultation. Breath sounds equal bilaterally. GASTROINTESTINAL: Abdomen soft, non-tender, nondistended. Normoactive bowel sounds Hepatic and splenic margins not palpable. MUSCULOSKELETAL: Right upper extremity is in a brace. No clubbing. No cyanosis. No edema. NEUROLOGICAL: RASS -2 . Significant spasticity noted right upper extremity with weakness Date of Insertion: Mar 20, 2017 A/P Assessment and Plan Altered mental status with slurred speech Acute infarct - 03/20 F/U MRI brain this am - Seizure prophylaxis- Keppra - [id number] results - Further workup per neurology-Dr. Gonzalez following - Continue aspirin and Plavix -Hold Ativan, and sedative type medications at this time, discontinue propofol -Continue fentanyl infusion for ventilator synchrony -Follow-up hypercoagulable studies-pending Acute hypoxemic respiratory failure -Ventilator bundle -Obtain O2 sat greater than 92% -Decrease FiO2 0.35 -Daily chest x-rays monitor ABGs -Bronchodilators Hypertensive urgency - Lisinopril home medication ( patient unable to take by mouth meds at this time ) -Labetalol 10 mg every 6 hours when necessary for systolic blood pressure greater than 200 mmHG Tachycardia -Metoprolol 2.5 mg every 6 hours PRN for heart rate > 100 -Labetalol 10 mg every 6 hours for systolic blood pressure greater than 180mmHg S/P previous CVA x 2 (Nov, Aug 2016) - Continue baclofen Mild protein calorie malnutrition - Tube feeds Jevity 1.5 Hyperlipidemia -Continue pravastatin ( home medication) DVT GI prophylaxis - Subcutaneous heparin and Pepcid Dispo: Level 2 Extensive discussion with family regarding the patient's desires. Plans for family meeting with palliative care on Saturday. Family requested DNR CODE STATUS effective today. Will continue optimization of treatment and follow-up neurology recommendations regarding physical status and realistic expectations post recent CVA. . Physician Jessie Dimas MD Mar 23, 2017 14:45
[2017-03-23] MEDS: METOCLOPRAMIDE HCL 10 MG/2 ML VIAL IV PUSH SCH ×2 (14:52→20:39)
[2017-03-23] MEDS: cefTRIAXone INJ 2,000 MG in SODIUM CHLORIDE 0.9% INJ 100 ML IV SCH (16:29)
[2017-03-23] MEDS ORDERED: SODIUM CHLORID 0.9% 500 ML INJ 500 ML IV ONE (17:00)
[2017-03-23] MEDS: ATORVASTATIN 10 MG TAB PO SCH (20:39)
[2017-03-23] MEDS: BACLOFEN 10 MG TAB PO SCH (20:40)
[2017-03-24] VITALS (19 sets, daily range): BP systolic 91–134; BP diastolic 54–75; PULSE 97–114; RESP 12–18; TEMP 98–99.4; O2SAT 96–100
[2017-03-24] MEDS: CHLORHEXIDINE GLUCONATE 2 % 1 PACK (2 CLOTHS) TOP SCH (02:05)
[2017-03-24] MEDS: PROPOFOL 1000 MG/100 ML INJ 100 ML IV SCH ×4 (02:05→21:00)
--- NOTE | 2017-03-24 04:20 | RADRPT ---
EXAM DATE/TIME: 03/24/2017 03:51 [facility] COMPARISON: CHEST SINGLE AP, March 22, 2017, 3:51. INDICATIONS : Evaluate respiratory failure and ETT. MEDICAL HISTORY : Cardiovascular disease. Hypertension Hiatal hernia. SURGICAL HISTORY : None. ENCOUNTER: Subsequent ACUITY: 4 - 6 days PAIN SCORE: Non-responsive. LOCATION: Bilateral chest FINDINGS: Endotracheal tube and enteric tube again seen. There is patchy consolidation in the left lung greates t in the left lower lobe and increased from previous. Minimal streaky infiltrate at the right base al so new. Osseous structures are intact. Cardiomegaly. CONCLUSION: Worsening appearance of the chest. Sloan Garay MD on March 24, 2017 at 4:18 Board Certified Radiologist. This report was verified electronically.
[2017-03-24 05:38] LABS: HEMATOCRIT 26.4 % (39.0-51.0); MEAN CELL VOLUME 86.7 FL (80.0-100.0); MEAN CORPUSCULAR HEMOGLOBIN 29.7 PG (27.0-34.0); MEAN CORPUSCULAR HGB CONC 34.2 % (32.0-36.0); PLATELET COUNT 331 TH/MM3 (150-450); RED BLOOD COUNT 3.04 MIL/MM3 (4.50-5.90); RED CELL DISTRIBUTION WIDTH 13.2 % (11.6-17.2); REVIEW FLAG FINAL; WHITE BLOOD COUNT 8.3 TH/MM3 (4.0-11.0)
[2017-03-24 05:57] LABS: ALT (GPT) 17 U/L (12-78); ANION GAP 8 MEQ/L (5-15); AST (GOT) 24 U/L (15-37); BICARBONATE 26.3 MEQ/L (21.0-32.0); BLOOD UREA NITROGEN 6 MG/DL (7-18); CHLORIDE 107 MEQ/L (98-107); GLOMERULAR FILTRATION RATE 183 ML/MIN (>89); MAGNESIUM 1.7 MG/DL (1.5-2.5); POTASSIUM 3.2 MEQ/L (3.5-5.1); SODIUM (NA) 141 MEQ/L (136-145)
[2017-03-24 05:59] LABS: ALKALINE PHOSPHATASE 129 U/L (45-117); INDIRECT BILIRUBIN 0.1 MG/DL (0.0-0.8); TOTAL BILIRUBIN ADULT 0.2 MG/DL (0.2-1.0)
[2017-03-24] MEDS: INSULIN ASPART SUPPLEMENTAL SCALE SQ SCH (06:10)
[2017-03-24] MEDS: POTASSIUM CHLOR 20 MEQ PREMIX 100 ML IV PRN ×4 (06:16→10:35)
[2017-03-24] MEDS: METOCLOPRAMIDE HCL 10 MG/2 ML VIAL IV PUSH SCH ×3 (06:16→21:19)
[2017-03-24 07:50] LABS: THROMBIN TIME FOR LA 16 sec (13-19)
[2017-03-24] MEDS: RESP: ALBUTEROL 2.5 MG/IPRATROPIUM 0.5 MG NEB (SCH) NEB ×2 (08:29→13:10)
[2017-03-24] MEDS: SODIUM CHLORIDE 0.9% FLUSH 5 ML FLUSH IV FLUSH SCH ×2 (09:00→21:00)
[2017-03-24] MEDS: ARTIFICIAL TEARS OPTH SOLN 15 ML BTL EACH EYE SCH ×3 (09:00→17:37)
[2017-03-24] MEDS: SODIUM CHLORIDE 0.9% FLUSH 10 ML FLUSH SCH ×2 (09:00→21:14)
[2017-03-24] MEDS: CHLORHEXIDINE 0.12% (ORAL KIT) 15 ML CUP MT SCH ×2 (09:02→21:15)
[2017-03-24] MEDS: CLOPIDOGREL 75 MG TAB PO SCH (09:08)
[2017-03-24] MEDS: PRAVASTATIN SOD 80 MG TAB PO SCH (09:08)
[2017-03-24] MEDS: SERTRALINE HCL 50 MG TAB PO SCH (09:08)
[2017-03-24] MEDS: levETIRAcetam INJ 500 MG in SODIUM CHLORIDE 0.9% INJ 100 ML IV SCH ×2 (09:08→21:14)
[2017-03-24] MEDS: FAMOTIDINE 20 MG/2 ML VIAL IV PUSH SCH ×2 (09:08→21:18)
[2017-03-24] MEDS: LISINOPRIL 5 MG TAB PO SCH (09:08)
[2017-03-24] MEDS: DOCUSATE SODIUM 50 MG/SENNA 8.6 MG TAB PO SCH ×2 (09:08→21:15)
[2017-03-24] MEDS: SODIUM CHLOR 0.9% 1000 ML INJ 1,000 ML IV SCH ×2 (10:51→21:19)
[2017-03-24] MEDS: HEPARIN SODIUM - SQ 10,000 UNITS/ML VIAL SQ SCH (13:18)
--- NOTE | 2017-03-24 15:47 | HHI.CCPN ---
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 Per patient's he has right sided upper extremity paralysis and left lower extremity weakness secondary to his stroke. She states he has had some slurred speech but not to the degree that it began 45 minutes ago. Is concerned patient is having a recurrent stroke. He is on Plavix and aspirin at home. Patient denies any headache. No chest or tightness. No difficulty breathing. Patient has not been recently ill. He has been on by mouth baclofen for contractures, however he wasn't able to take those pills for last 24 hours due to difficulty swallowing. Subjective: 03/20; Afebrile. Upon evaluation this a.m., the patient completely aphasic, not responding to any commands. Diaphoretic, and tachycardic. CT brain was negative. Pending MRI this a.m.. Patient has received thus far since admission to the hospital noted Ativan 5 mg in conjunction with 2 mg of morphine in the emergency department. EEG currently underway. Neurology has been consulted. Patient was noted have bladder outlet obstruction previously, Minimal urine output with condom catheter, Zimmerman inserted with slight difficulty now adequate drainage. No seizure activity noted only spasticity at this time, patient continues on baclofen. 03/21: MRI revealed acute right caudate region infarct. Hypercoagulable bowel studies obtained per neurology Dr. Gonzalez, following. Patient previously complained of pelvic pain CT of the abdomen and pelvis results negative. Patient maintaining blood pressure within normal ranges. The patient continues on Plavix. ID consulted, Dr. Peters following. 03/22: Afebrile. Sedation minimized today. Patient is able to utilize left arm in follow commands. Propofol infusion discontinued Right upper extremity continue spasticity, with weakness but movement of hands to follow my commands. CPAP trials initiated today. Family meeting between this afternoon, and per patient's wishes, CODE STATUS changed to DNR. Palliative care consult initiated. Plan for family meeting on Saturday. Family states patient would not want a tracheostomy or PEG tube placement. I discussed with them the possibility of a trial of extubation, later in the week. 03/23: Afebrile. The patient failed CPAP trials this a.m.. Tube feeds at 30 cc noted large amount of residual 200 cc this a.m. Metoclopramide initiated. Blood culture was noted to have gram-positive cocci, resulted staph epidermidis , possible contaminant . 03/24: The family is at bedside. No acute events overnight. CPAP trials are underway. Planned meeting with palliative medicine in the morning, to determine goals of care. Family leaning toward possible hospice, or terminal weaning process. Family have stated emphatically that the patient would not want a tracheostomy or PEG tube to placement. Objective Vital Signs Date Time Temp Pulse Resp B/P Pulse Ox O2 Delivery O2 Flow Rate FiO2 03/24/17 14:00 110 03/24/17 13:11 97 40 03/24/17 12:00 98.0 14 134/72 03/20/17 09:37 Nasal Cannula 2.00 Intake and Output 03/23/17 03/23/17 03/24/17 08:00 16:00 00:00 Intake Total 1179 ml 1284 ml 1773 ml Output Total 250 ml 200 ml 400 ml Balance 929 ml 1084 ml 1373 ml Result Diagram: 03/24/17 0442 03/24/17 0442 Objective Remarks Infusions Diprivan 20 mcgs/hr Fentanyl 100 mcgs/hr Normal saline 42 cc/hour GENERAL: Well-nourished male patient, lying in bed, intubated and sedated SKIN: Warm and dry HEAD: Atraumatic. Normocephalic. EYES: Pupils equal and round. No scleral icterus. No injection or drainage. ENT: No nasal bleeding or discharge. Mucous membranes pink and moist. Orotracheally intubated NECK: Trachea midline. No JVD. CARDIOVASCULAR: Telemetry normal rate and rhythm. RESPIRATORY: No accessory muscle use. Clear to auscultation. Breath sounds equal bilaterally. GASTROINTESTINAL: Abdomen soft, non-tender, nondistended. Normoactive bowel sounds Hepatic and splenic margins not palpable. MUSCULOSKELETAL: Right upper extremity is in a brace. No clubbing. No cyanosis. No edema. NEUROLOGICAL: RASS -2 . Significant spasticity noted right upper extremity with weakness Date of Insertion: Mar 20, 2017 A/P Assessment and Plan Altered mental status with slurred speech Acute infarct - 03/20 F/U MRI brain this am - Seizure prophylaxis- Keppra - [id number] results - Further workup per neurology-Dr. Carlos following - Continue aspirin and Plavix -Hold Ativan, and sedative type medications at this time, discontinue propofol -Continue fentanyl infusion for ventilator synchrony -Follow-up hypercoagulable studies-pending Acute hypoxemic respiratory failure -Ventilator bundle -Maintain O2 sat greater than 92% -Decrease FiO2 0.35 -Daily chest x-rays monitor ABGs -Bronchodilators Hypertensive urgency - Lisinopril home medication ( patient unable to take by mouth meds at this time ) -Labetalol 10 mg every 6 hours when necessary for systolic blood pressure greater than 200 mmHG Tachycardia -Metoprolol 2.5 mg every 6 hours PRN for heart rate > 100 -Labetalol 10 mg every 6 hours for systolic blood pressure greater than 180mmHg S/P previous CVA x 2 (Nov, Aug 2016) - Continue baclofen Mild protein calorie malnutrition - Tube feeds Jevity 1.5 Hyperlipidemia -Continue pravastatin ( home medication) DVT GI prophylaxis - Subcutaneous heparin and Pepcid Dispo: Level 2 Extensive discussion with family regarding the patient's desires. Plans for family meeting with palliative care on Saturday. Family requested DNR CODE STATUS effective today. Will continue optimization of treatment and follow-up neurology recommendations regarding physical status and realistic expectations post recent CVA. . Physician Jessie Dimas MD Mar 24, 2017 15:47
[2017-03-24] MEDS: cefTRIAXone INJ 2,000 MG in SODIUM CHLORIDE 0.9% INJ 100 ML IV SCH (16:28)
[2017-03-24] MEDS: ATORVASTATIN 10 MG TAB PO SCH (21:15)
[2017-03-24] MEDS: BACLOFEN 10 MG TAB PO SCH (21:15)
[2017-03-24] MEDS: fentaNYL DRIP 250 ML IV SCH (21:18)
[2017-03-25] VITALS (15 sets, daily range): BP systolic 106–125; BP diastolic 60–69; PULSE 83–120; RESP 14–22; TEMP 98.9–100.5; O2SAT 87–100
[2017-03-25] MEDS: HEPARIN SODIUM - SQ 10,000 UNITS/ML VIAL SQ SCH (00:20)
[2017-03-25] MEDS: PROPOFOL 1000 MG/100 ML INJ 100 ML IV SCH (03:50)
[2017-03-25] MEDS: CHLORHEXIDINE GLUCONATE 2 % 1 PACK (2 CLOTHS) TOP SCH (03:52)
[2017-03-25] MEDS: METOCLOPRAMIDE HCL 10 MG/2 ML VIAL IV PUSH SCH (06:00)
[2017-03-25] MEDS: LISINOPRIL 5 MG TAB PO SCH (09:00)
[2017-03-25] MEDS: SODIUM CHLORIDE 0.9% FLUSH 10 ML FLUSH SCH (09:00)
[2017-03-25] MEDS: FAMOTIDINE 20 MG/2 ML VIAL IV PUSH SCH (09:22)
[2017-03-25] MEDS: levETIRAcetam INJ 500 MG in SODIUM CHLORIDE 0.9% INJ 100 ML IV SCH ×2 (09:22→20:33)
[2017-03-25] MEDS: PRAVASTATIN SOD 80 MG TAB PO SCH (09:23)
[2017-03-25] MEDS: CLOPIDOGREL 75 MG TAB PO SCH (09:23)
[2017-03-25] MEDS: DOCUSATE SODIUM 50 MG/SENNA 8.6 MG TAB PO SCH (09:23)
[2017-03-25] MEDS: SERTRALINE HCL 50 MG TAB PO SCH (09:23)
[2017-03-25] MEDS: SODIUM CHLORIDE 0.9% FLUSH 5 ML FLUSH IV FLUSH SCH ×2 (09:24→20:33)
[2017-03-25] MEDS: ARTIFICIAL TEARS OPTH SOLN 15 ML BTL EACH EYE SCH ×3 (09:24→17:10)
[2017-03-25] MEDS: CHLORHEXIDINE 0.12% (ORAL KIT) 15 ML CUP MT SCH (09:24)
[2017-03-25] MEDS: SODIUM CHLOR 0.9% 1000 ML INJ 1,000 ML IV SCH (11:18)
[2017-03-25] MEDS ORDERED: LORazepam 2 MG/ML VIAL IV ONE ×2 (11:45→12:15)
--- NOTE | 2017-03-25 12:11 | HHI.HCPN ---
Reason for visit a. To assist with evaluation and management of symptoms including: Dyspnea, pain. b. To assist medical decision maker(s) with: better understanding of current medical conditions; weighing benefits/burdens of medical treatment options; making medical treatment decisions. . (Suzanna Dueñas) Subjective/Interval History Patient seen and examined in ICU. , son and daughter in law at bedside. Discussed with Dr. Solis, Dr. Leonard and nursing staff. Patient remain on mech vent (FiO2 50%). Failed CPAP trials over the weekend. Afebrile. No new labs or imaging. Dr. Solis supports family decision to transition to comfort focused care with withdrawal of life support given 3 strokes in 6 months, failing CPAP trials, hypotension, trajectory of decline in the past 6 months and that family reports that patient WOULD NOT want trach/PEG. . Family/friend interactions Met with (Leonor), son (Pb) and daughter in law (Anyi). Medical update provided. Reviewed options including continued aggressive care which may require trach and PEG per review of naturopathic doctor notes. We talked about possible medical extubation. stops me during the conversation to ask "why would we keep doing these things to him?" I explained we can not definitively determine the extent of recovery he will be able to make or time it will take for such recovery. She reports the patient would be furious that he has been on life support this long. She and son are certain he would not want continued aggressive given his trajectory of decline including 3 strokes in the past 6 months. They feel it is time to stop "making him suffer." Family reports they are "just speaking for him" he has told them repeatedly in the past he did not want to live like this. Family has clearly decided to transition to comfort focused care and wants to proceed with withdrawal of life support today. They are going to go home to make some calls to additional family members. Declines guidance director. Will consider hospice support in AM if he survives. . (Suzanna Dueñas) Advance Directives Living Will: Never completed Health Care Surrogate: Never completed Durable Power of [place]: Never completed (Suzanna Dueñas) Advance Directive Specifics Health Care Surrogate(s): Patient is currently incapacitated and not expected to regain capacity. Per [place] Statutes, healthcare proxy falls to . . Documented care wishes: Family would like to meet Saturday to discuss treatment goals. Family previously expressed wishes for DNR status with Dr. oJseph. . Significant change in goals: NO CODE. Transition to comfort focused care with withdrawal of life support today. . (Suzanna Dueñas) Objective Vital Signs Date Time Temp Pulse Resp B/P Pulse Ox O2 Delivery O2 Flow Rate FiO2 03/25/17 08:32 93 50 03/25/17 06:00 83 03/25/17 04:18 98.9 90 14 108/63 98 03/25/17 04:18 40 03/25/17 04:03 100 40 03/25/17 04:00 89 03/25/17 02:00 89 03/25/17 00:00 100.1 98 16 120/69 98 03/25/17 00:00 98 03/25/17 00:00 40 03/24/17 23:53 99 40 03/24/17 22:00 106 03/24/17 21:18 96 40 03/24/17 20:00 99.2 112 18 128/73 97 03/24/17 20:00 40 03/24/17 20:00 112 03/24/17 18:00 110 03/24/17 17:20 98 40 03/24/17 16:00 110 03/24/17 16:00 40 03/24/17 16:00 98.0 114 12 128/75 99 03/24/17 14:00 110 03/24/17 13:11 97 40 03/24/17 13:11 40 03/24/17 12:00 40 03/24/17 12:00 110 03/24/17 12:00 98.0 107 14 134/72 99 Intake & Output 03/25/17 03/25/17 07:00 19:00 Intake Total 2511 ml Output Total 2560.0 ml Balance -49.0 ml Intake IV Total 1867 ml Tube Feeding 554 ml Other 90 ml Output Urine Total 2500 ml Tube Feeding Residual Discard 60.0 ml Physical Exam CONSTITUTIONAL/GENERAL: This is an adequately nourished patient. Mechanically ventilated. TUBES/LINES/DRAINS: ETT, OGT, PIV right, SCD, harris, wrist restraints SKIN: No jaundice, rashes, or lesions. Skin pale. No wounds seen anteriorly. Skin temperature appropriate. He is diaphoretic. EYES: Pupils unequal, right greater than left with brisk reaction on sedation. CARDIOVASCULAR: Sinus tach,no murmur gallops, or rubs. RESPIRATORY/CHEST: Clear to auscultation. Breath sounds equal bilaterally. No wheezes, rales, or rhonchi. GASTROINTESTINAL: Abdomen soft, nondistended. No hepato-splenomegaly, or palpable masses. No guarding. active bowel sounds. OGT, tolerating tube feedings. GENITOURINARY: Without palpable bladder distension. Harris catheter in place. Adequate clear yellow urine. MUSCULOSKELETAL: Extremities without clubbing, cyanosis, or edema. No mottling or clubbing. NEUROLOGICAL: Intubated and sedated. Follows some simple commands intermittently. Slow withdraw to noxious stimulation. PSYCHIATRIC: Sedated. . (Suzanna Dueñas) Diagnostic Tests Laboratory Laboratory Tests Test 03/22/17 03/23/17 03/23/17 03/24/17 20:39 04:30 04:44 04:42 Potassium Level 4.1 MEQ/L 3.7 MEQ/L 3.2 MEQ/L (3.5-5.1) (3.5-5.1) (3.5-5.1) Blood Gas Puncture Site RT BRACHIAL Blood Gas Patient Temperature 98.6 Blood Gas HCO3 24 mmol/L (22-26) Blood Gas Base Excess -1.3 mmol/L (-2-2) Blood Gas Oxygen Saturation 97 % (90-100) Arterial Blood pH 7.35 (7.380-7.420) Arterial Blood Partial 43 mmHg (38-42) Pressure CO2 Arterial Blood Partial 128 mmHg Pressure O2 (61-120) Arterial Blood Oxygen Content 14.8 Vol % (12.0-20.0) Arterial Blood 0.9 % (0-4) Carboxyhemoglobin Arterial Blood Methemoglobin 0.9 % (0-2) Blood Gas Hemoglobin 10.7 G/DL (12.0-16.0) Oxygen Delivery Device VENTILATOR Blood Gas Ventilator Setting PRVC/AV Blood Gas Inspired Oxygen 45 % White Blood Count 9.7 TH/MM3 8.3 TH/MM3 (4.0-11.0) (4.0-11.0) Red Blood Count 3.64 MIL/MM3 3.04 MIL/MM3 (4.50-5.90) (4.50-5.90) Hemoglobin 10.7 GM/DL 9.0 GM/DL (13.0-17.0) (13.0-17.0) Hematocrit 32.0 % 26.4 % (39.0-51.0) (39.0-51.0) Mean Corpuscular Volume 88.0 FL 86.7 FL (80.0-100.0) (80.0-100.0) Mean Corpuscular Hemoglobin 29.4 PG 29.7 PG (27.0-34.0) (27.0-34.0) Mean Corpuscular Hemoglobin 33.4 % 34.2 % Concent (32.0-36.0) (32.0-36.0) Red Cell Distribution Width 13.2 % 13.2 % (11.6-17.2) (11.6-17.2) Platelet Count 372 TH/MM3 331 TH/MM3 (150-450) (150-450) Mean Platelet Volume 7.6 FL 8.3 FL (7.0-11.0) (7.0-11.0) Sodium Level 137 MEQ/L 141 MEQ/L (136-145) (136-145) Chloride Level 107 MEQ/L 107 MEQ/L (98-107) (98-107) Carbon Dioxide Level 22.8 MEQ/L 26.3 MEQ/L (21.0-32.0) (21.0-32.0) Anion Gap 7 MEQ/L (5-15) 8 MEQ/L (5-15) Blood Urea Nitrogen 6 MG/DL (7-18) 6 MG/DL (7-18) Creatinine 0.43 MG/DL 0.47 MG/DL (0.60-1.30) (0.60-1.30) Estimat Glomerular Filtration 203 ML/MIN 183 ML/MIN Rate (>89) (>89) Random Glucose 98 MG/DL 99 MG/DL (74-106) (74-106) Calcium Level 8.7 MG/DL 7.9 MG/DL (8.5-10.1) (8.5-10.1) Phosphorus Level 2.6 MG/DL 2.6 MG/DL (2.5-4.9) (2.5-4.9) Magnesium Level 1.8 MG/DL 1.7 MG/DL (1.5-2.5) (1.5-2.5) Total Bilirubin 0.2 MG/DL (0.2-1.0) Direct Bilirubin LESS THAN 0.1 MG/DL (0.0-0.2) Indirect Bilirubin 0.1 MG/DL (0.0-0.8) Aspartate Amino Transf 24 U/L (15-37) (AST/SGOT) Alanine Aminotransferase 17 U/L (12-78) (ALT/SGPT) Alkaline Phosphatase 129 U/L (45-117) Total Protein 5.2 GM/DL (6.4-8.2) Albumin 2.1 GM/DL (3.4-5.0) (Suzanna Dueñas) Result Diagram: 03/24/172 03/24/172 Microbiology Microbiology Date/Time Procedure Status Source Growth 03/21/17 03:44 Aerobic Blood Culture - Preliminary Resulted Blood Peripheral NO GROWTH IN 4 DAYS 03/21/17 03:44 Anaerobic Blood Culture - Preliminary Resulted Blood Peripheral NO GROWTH IN 4 DAYS 03/20/17 16:00 Gram Stain - Final Complete Sputum Endotracheal 03/20/17 16:00 Sputum Culture - Final Complete Sputum Endotracheal HEAVY GROWTH NORMAL RESPIRATORY CAROL ANN . Imaging Last Impressions Chest X-Ray 03/24/17 0600 Signed Impressions: Service Date/Time: Friday, March 24, 2017 03:51 - CONCLUSION: Worsening appearance of the chest. Sloan Garay MD Brain MRI 03/20/17 0000 Signed Impressions: Service Date/Time: Monday, March 20, 2017 12:12 - CONCLUSION: 1. There is an area of acute cortical infarct involving the caudate nucleus on the right. 2. Old infarct involving the caudate on the left. 3. Limited exam due to motion artifact Adolph Pepe MD Abdomen/Pelvis CT 03/20/17 0000 Signed Impressions: Service Date/Time: March 09:13 - CONCLUSION: 1. Negative CT scan of the abdomen and pelvis. Adolph Pepe MD Neck CTA 03/19/17 0000 Signed Impressions: Service Date/Time: Sunday, March 19, 2017 20:09 - CONCLUSION: Atherosclerotic plaque without a hemodynamically significant stenosis involving either carotid artery or vertebral artery. Wiliam Santizo Jr., MD Head CTA 03/19/17 0000 Signed Impressions: Service Date/Time: Sunday, March 19, 2017 20:09 - CONCLUSION: 1. Diffuse atherosclerotic plaque without a hemodynamically significant stenosis. Wiliam Santizo Jr., MD Head CT 03/19/17 0000 Signed Impressions: Service Date/Time: Sunday, March 19, 2017 18:30 - CONCLUSION: 1. No acute intracranial abnormality. 2. Areas of chronic lacunar infarction as detailed above. Wiliam Santizo Jr., MD . Procedures 03/20/17: Intubated, harris placed 03/21/17: EEG mild diffuse encephalopathy (Suzanna Dueñas) Assessment and Plan Disease Oriented Problem List: (1) Acute CVA (cerebrovascular accident) (2) Aphasia (3) Dysphagia due to recent stroke (4) Hemiplegia affecting dominant side (5) Impaired mobility and activities of daily living (6) Anxiety Symptom Scale: (1) Pain 0-10 Scale: Unable to quantify (2) Dyspnea 0-10 Scale: Unable to quantify (3) Anxiety 0-10 Scale: Unable to quantify Pertinent Non-Medical Issues Psychosocial: with one son. Spiritual: Confucianist Legal: Incapacitated and not expected to regain capacity. HCP . Ethical issues impacting care: None . Important Contacts : Leonor ([phone]) . Prognosis 57 year old male with a history of 2 previous strokes in the past 6 months (Nov and Aug). Currently admitted with basal ganglia infarct. Patient remains critically-ill in the ICU mechanically intubated and sedated. Overall prognosis is poor. Code Status: No Code Plan * Patient is currently incapacitated and not expected to regain capacity. Per [place] Statutes, healthcare proxy falls to . * NO CODE. * Spoke with via phone to introduce Palliative care service. She is very appreciative. She provided additional history, seems to have a good understanding of clinical condition. She is tearful when talking about current status. * Palliative care/ family meeting: Met with (Leonor), son (Pb) and daughter in law (Anyi). Medical update provided. Reviewed options including continued aggressive care which may require trach and PEG per review of naturopathic doctor notes. We talked about possible medical extubation. stops me during the conversation to ask "why would we keep doing these things to him?" I explained we can not definitively determine the extent of recovery he will be able to make or time it will take for such recovery. She reports the patient would be furious that he has been on life support this long. She and son are certain he would not want continued aggressive given his trajectory of decline including 3 strokes in the past 6 months. They feel it is time to stop "making him suffer." Family reports they are "just speaking for him" he has told them repeatedly in the past he did not want to live like this. Family has clearly decided to transition to comfort focused care and wants to proceed with withdrawal of life support today. They are going to go home to make some calls to additional family members. * Declines guidance director. * Will consider hospice support in AM if he survives. * Exhibits B & C on chart, signed. * SYMPTOMS: dyspnea: on mech vent. Pain: due to stroke, intubation. bedbound status. On Fentanyl drip. Orders written for comfort/ withdrawal of life support. * Palliative care number provided. . (Suzanna Dueñas) Time Spent Total Floor Time (mins): 75 Face to Face Time (mins): 50 >50% Counseling/Coord of Care: Yes (Suzanna Dueñas) Attestation To help prompt me to consider important information that might be impacting today's encounter and assessment, information from prior notes written by myself or my colleagues may have been "brought forward" into today's note. My signature on this note, however, is an attestation that I personally performed the exam, history, and/or decision-making noted today, and, unless otherwise indicated, the interactions with patient, family, and staff as well as the review of records all occurred today. I also attest that the listed assessment and stated plan reflect my best clinical judgment today based on the combination of historical information, prior notes, and today's exam/ interactions. When time spent is documented, it refers only to time spent today by the signer, or if indicated, combined time spent today by collaborating physician/nurse practitioner. (Suzanna Dueñas) Collaborating MD Comments Chart reviewed. Case discussed with palliative care SOLIDS CONTROL TECHNICIAN. I have reviewed above SOLIDS CONTROL TECHNICIAN note and concur. I have personally examined the patient and have signed the attestation that his condition is "terminal." 57 y/o male remains vent dependent in SICU after experiencing his third stroke in 6 months. Minimally responsive at time of my visit. He is failing spontaneous breathing trials. Patient unable to participate in decision making. is proxy. feels strongly patient would not want ongoing aggressive care which would probably require tracheostomy and PEG tube placement. Tmax 100.1 Other VS stable. Mechanically ventilated Lungs clear Tachycardic. Sinus rhythm on monitor. Abdomen benign. Neuro: Contracted right hand. Intermittently follows a simple command. Withdraws to noxious stimulation. PLAN: Will honor patient's wishes as understood by and rest of family. Condition is terminal. Patient is not expected to regain capacity to make further decisions. Will support family's decision to withdraw life support. TIME: Over 75 minutes of total OUTREACH LIAISON and physician time spent on floor with chart review, patient exam, discussion with family, discussion with naturopathic doctor. Over 50% of time spent on counseling/coordination of care. . . (Yo Leonard MD) Suzanna Dueñas Mar 25, 2017 12:11 Yo Leonard MD Mar 25, 2017 17:59
[2017-03-25] MEDS ORDERED: LORazepam 2 MG/ML VIAL IV PRN (12:15)
[2017-03-25] MEDS ORDERED: FUROSEMIDE 20 MG/2 ML VIAL IV PRN (12:15)
[2017-03-25] MEDS ORDERED: LORazepam 2 MG/ML VIAL IVS PRN (12:15)
[2017-03-25] MEDS ORDERED: HYDROmorphone HCL PF 1 MG/ML VIAL IV PRN (12:15)
[2017-03-25] MEDS: HYOSCYAMINE 0.5 MG/ML AMP IV PRN ×2 (12:50→19:54)
--- NOTE | 2017-03-25 15:20 | HHI.CCPN ---
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 Per patient's he has right sided upper extremity paralysis and left lower extremity weakness secondary to his stroke. She states he has had some slurred speech but not to the degree that it began 45 minutes ago. Is concerned patient is having a recurrent stroke. He is on Plavix and aspirin at home. Patient denies any headache. No chest or tightness. No difficulty breathing. Patient has not been recently ill. He has been on by mouth baclofen for contractures, however he wasn't able to take those pills for last 24 hours due to difficulty swallowing. Subjective: 03/20; Afebrile. Upon evaluation this a.m., the patient completely aphasic, not responding to any commands. Diaphoretic, and tachycardic. CT brain was negative. Pending MRI this a.m.. Patient has received thus far since admission to the hospital noted Ativan 5 mg in conjunction with 2 mg of morphine in the emergency department. EEG currently underway. Neurology has been consulted. Patient was noted have bladder outlet obstruction previously, Minimal urine output with condom catheter, Zimmerman inserted with slight difficulty now adequate drainage. No seizure activity noted only spasticity at this time, patient continues on baclofen. 03/21: MRI revealed acute right caudate region infarct. Hypercoagulable bowel studies obtained per neurology Dr. Gonzalez, following. Patient previously complained of pelvic pain CT of the abdomen and pelvis results negative. Patient maintaining blood pressure within normal ranges. The patient continues on Plavix. ID consulted, Dr. Peters following. 03/22: Afebrile. Sedation minimized today. Patient is able to utilize left arm in follow commands. Propofol infusion discontinued Right upper extremity continue spasticity, with weakness but movement of hands to follow my commands. CPAP trials initiated today. Family meeting between this afternoon, and per patient's wishes, CODE STATUS changed to DNR. Palliative care consult initiated. Plan for family meeting on Saturday. Family states patient would not want a tracheostomy or PEG tube placement. I discussed with them the possibility of a trial of extubation, later in the week. 03/23: Afebrile. The patient failed CPAP trials this a.m.. Tube feeds at 30 cc noted large amount of residual 200 cc this a.m. Metoclopramide initiated. Blood culture was noted to have gram-positive cocci, resulted staph epidermidis , possible contaminant . 03/24: The family is at bedside. No acute events overnight. CPAP trials are underway. Planned meeting with palliative medicine in the morning, to determine goals of care. Family leaning toward possible hospice, or terminal weaning process. Family have stated emphatically that the patient would not want a tracheostomy or PEG tube to placement. 03/25: Family is firm that patient would not want artificial support for this illness. Objective Vital Signs Date Time Temp Pulse Resp B/P Pulse Ox O2 Delivery O2 Flow Rate FiO2 03/25/17 12:55 87 Room Air 03/25/17 12:00 96 03/25/17 12:00 40 03/25/17 12:00 99.2 14 106/60 Intake and Output 03/24/17 03/24/17 03/24/17 07:59 15:59 23:59 Intake Total 1164 ml 1427 ml 1355 ml Output Total 450 ml 800 ml 2010.0 ml Balance 714 ml 627 ml -655.0 ml Result Diagram: 03/24/1744103/24/17441 Objective Remarks Infusions Diprivan 20 mcgs/hr Fentanyl 100 mcgs/hr Normal saline 42 cc/hour GENERAL: Well-nourished male patient, lying in bed, intubated and sedated SKIN: Warm and dry HEAD: Atraumatic. Normocephalic. EYES: Pupils equal and round. No scleral icterus. No injection or drainage. ENT: No nasal bleeding or discharge. Mucous membranes pink and moist. Orotracheally intubated NECK: Trachea midline. No JVD. CARDIOVASCULAR: Telemetry normal rate and rhythm. RESPIRATORY: No accessory muscle use. Clear to auscultation. Breath sounds equal bilaterally. GASTROINTESTINAL: Abdomen soft, non-tender, nondistended. Normoactive bowel sounds Hepatic and splenic margins not palpable. MUSCULOSKELETAL: Right upper extremity is in a brace. No clubbing. No cyanosis. No edema. NEUROLOGICAL: RASS -2 . Significant spasticity noted right upper extremity with weakness Date of Insertion: Mar 20, 2017 A/P Assessment and Plan Altered mental status with slurred speech Acute infarct - 03/20 F/U MRI brain this am - Seizure prophylaxis- Keppra - [id number] results - Further workup per neurology-Dr. Gonzalez following - Continue aspirin and Plavix -Hold Ativan, and sedative type medications at this time, discontinue propofol -Continue fentanyl infusion for ventilator synchrony -Follow-up hypercoagulable studies-pending Acute hypoxemic respiratory failure -Ventilator bundle -Maintain O2 sat greater than 92% -Decrease FiO2 0.35 -Daily chest x-rays monitor ABGs -Bronchodilators Hypertensive urgency - Lisinopril home medication ( patient unable to take by mouth meds at this time ) -Labetalol 10 mg every 6 hours when necessary for systolic blood pressure greater than 200 mmHG Tachycardia -Metoprolol 2.5 mg every 6 hours PRN for heart rate > 100 -Labetalol 10 mg every 6 hours for systolic blood pressure greater than 180mmHg S/P previous CVA x 2 (Nov, Aug 2016) - Continue baclofen Mild protein calorie malnutrition - Tube feeds Jevity 1.5 Hyperlipidemia -Continue pravastatin ( home medication) DVT GI prophylaxis - Subcutaneous heparin and Pepcid Dispo: Level 2 Extensive discussion with family regarding the patient's desires. Plans for family meeting with palliative care today Family requested DNR CODE STATUS effective today. Will continue optimization of treatment and follow-up neurology recommendations regarding physical status and realistic expectations post recent CVA. Anticipate withdrawal. . Harish Solis MD Mar 25, 2017 15:19
[2017-03-25] MEDS: LORazepam 2 MG/ML VIAL IV SCH ×3 (17:10→23:56)
[2017-03-25] MEDS: fentaNYL DRIP 250 ML IV SCH (19:35)
[2017-03-26] MEDS: LORazepam 2 MG/ML VIAL IV SCH ×3 (03:52→12:00)
[2017-03-26] MEDS: HYOSCYAMINE 0.5 MG/ML AMP IV PRN ×2 (03:53→10:38)
[2017-03-26 07:41] VITALS: O2SAT 91
[2017-03-26 08:00] VITALS: BP 118/65; PULSE 115; RESP 14; TEMP 98.9; O2SAT 92
[2017-03-26] MEDS: SODIUM CHLORIDE 0.9% FLUSH 5 ML FLUSH IV FLUSH SCH (08:24)
[2017-03-26] MEDS: fentaNYL DRIP 250 ML IV SCH (08:24)
[2017-03-26] MEDS: ARTIFICIAL TEARS OPTH SOLN 15 ML BTL EACH EYE SCH ×2 (08:24→12:46)
[2017-03-26] MEDS: levETIRAcetam INJ 500 MG in SODIUM CHLORIDE 0.9% INJ 100 ML IV SCH (08:24)
[2017-03-26] MEDS: LORazepam 2 MG/ML VIAL IV PRN ×4 (10:30→13:40)
--- NOTE | 2017-03-26 10:30 | HHI.HCPN ---
[facility] she did not wish to talk in patient's room. She is a little distraught regarding patients condition, states he needs to be medicated, "he is burning up". Nurse in to administer medication. Offered active listening and emotional support. brings up hospice and desires for Mr. Croft to be transferred to the [facility]. Order placed for hospice. Case management aware. Hospice nurse aware and will be coming to meet with patient's . Palliative care number provided. Palliative care will continue to follow throughout hospitalization. Fatou Santizo, INSTRUMENT REPAIRER Mar 26, 2017 10:30
[2017-03-26] MEDS: HYDROmorphone HCL PF 1 MG/ML VIAL IV PRN ×4 (10:31→13:40)
--- NOTE | 2017-03-26 11:19 | HHI.CCPN ---
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 Per patient's he has right sided upper extremity paralysis and left lower extremity weakness secondary to his stroke. She states he has had some slurred speech but not to the degree that it began 45 minutes ago. Is concerned patient is having a recurrent stroke. He is on Plavix and aspirin at home. Patient denies any headache. No chest or tightness. No difficulty breathing. Patient has not been recently ill. He has been on by mouth baclofen for contractures, however he wasn't able to take those pills for last 24 hours due to difficulty swallowing. Subjective: 03/20; Afebrile. Upon evaluation this a.m., the patient completely aphasic, not responding to any commands. Diaphoretic, and tachycardic. CT brain was negative. Pending MRI this a.m.. Patient has received thus far since admission to the hospital noted Ativan 5 mg in conjunction with 2 mg of morphine in the emergency department. EEG currently underway. Neurology has been consulted. Patient was noted have bladder outlet obstruction previously, Minimal urine output with condom catheter, Zimmerman inserted with slight difficulty now adequate drainage. No seizure activity noted only spasticity at this time, patient continues on baclofen. 03/21: MRI revealed acute right caudate region infarct. Hypercoagulable bowel studies obtained per neurology Dr. Gonzalez, following. Patient previously complained of pelvic pain CT of the abdomen and pelvis results negative. Patient maintaining blood pressure within normal ranges. The patient continues on Plavix. ID consulted, Dr. Peters following. 03/22: Afebrile. Sedation minimized today. Patient is able to utilize left arm in follow commands. Propofol infusion discontinued Right upper extremity continue spasticity, with weakness but movement of hands to follow my commands. CPAP trials initiated today. Family meeting between this afternoon, and per patient's wishes, CODE STATUS changed to DNR. Palliative care consult initiated. Plan for family meeting on Saturday. Family states patient would not want a tracheostomy or PEG tube placement. I discussed with them the possibility of a trial of extubation, later in the week. 03/23: Afebrile. The patient failed CPAP trials this a.m.. Tube feeds at 30 cc noted large amount of residual 200 cc this a.m. Metoclopramide initiated. Blood culture was noted to have gram-positive cocci, resulted staph epidermidis , possible contaminant . 03/24: The family is at bedside. No acute events overnight. CPAP trials are underway. Planned meeting with palliative medicine in the morning, to determine goals of care. Family leaning toward possible hospice, or terminal weaning process. Family have stated emphatically that the patient would not want a tracheostomy or PEG tube to placement. 03/25: Family is firm that patient would not want artificial support for this illness. 03/26: [facility] Objective Vital Signs Date Time Temp Pulse Resp B/P Pulse Ox O2 Delivery O2 Flow Rate FiO2 03/26/17 08:00 98.9 115 14 118/65 92 03/25/17 19:45 21 03/25/17 12:55 Room Air Intake and Output 03/25/17 03/25/17 03/26/17 08:00 16:00 00:00 Intake Total 1156 ml 643 ml 221 ml Output Total 550.0 ml 450 ml 750 ml Balance 606.0 ml 193 ml -529 ml Result Diagram: 03/24/17 0442 03/24/17 0442 Objective Remarks Infusions Diprivan 20 mcgs/hr Fentanyl 100 mcgs/hr Normal saline 42 cc/hour GENERAL: Well-nourished male patient, lying in bed, intubated and sedated SKIN: Warm and dry HEAD: Atraumatic. Normocephalic. EYES: Pupils equal and round. No scleral icterus. No injection or drainage. ENT: No nasal bleeding or discharge. Mucous membranes pink and moist. Orotracheally intubated NECK: Trachea midline. No JVD. CARDIOVASCULAR: Telemetry normal rate and rhythm. RESPIRATORY: No accessory muscle use. Clear to auscultation. Breath sounds equal bilaterally. GASTROINTESTINAL: Abdomen soft, non-tender, nondistended. Normoactive bowel sounds Hepatic and splenic margins not palpable. MUSCULOSKELETAL: Right upper extremity is in a brace. No clubbing. No cyanosis. No edema. NEUROLOGICAL: RASS -2 . Significant spasticity noted right upper extremity with weakness Date of Insertion: Mar 20, 2017 A/P Assessment and Plan Altered mental status with slurred speech Acute infarct - 03/20 F/U MRI brain this am - Seizure prophylaxis- Keppra - [id number] results - Further workup per neurology-Dr. Gonzalez following - Continue aspirin and Plavix -Hold Ativan, and sedative type medications at this time, discontinue propofol -Continue fentanyl infusion for ventilator synchrony -Follow-up hypercoagulable studies-pending Acute hypoxemic respiratory failure -Ventilator bundle -Maintain O2 sat greater than 92% -Decrease FiO2 0.35 -Daily chest x-rays monitor ABGs -Bronchodilators Hypertensive urgency - Lisinopril home medication ( patient unable to take by mouth meds at this time ) -Labetalol 10 mg every 6 hours when necessary for systolic blood pressure greater than 200 mmHG Tachycardia -Metoprolol 2.5 mg every 6 hours PRN for heart rate > 100 -Labetalol 10 mg every 6 hours for systolic blood pressure greater than 180mmHg S/P previous CVA x 2 (Nov, Aug 2016) - Continue baclofen Mild protein calorie malnutrition - Tube feeds Jevity 1.5 Hyperlipidemia -Continue pravastatin ( home medication) DVT GI prophylaxis - Subcutaneous heparin and Pepcid Dispo: Level 2 Extensive discussion with family regarding the patient's desires. Plans for family meeting with palliative care today Family requested DNR CODE STATUS effective today. Will continue optimization of treatment and follow-up neurology recommendations regarding physical status and realistic expectations post recent CVA. Anticipate withdrawal and transfer to [facility] . Harish Solis MD Mar 26, 2017 11:19
--- NOTE | 2017-03-26 11:22 | HHI.DS ---
Discharge Summary Admission Date Mar 19, 2017 at 22:50 Discharge Date: Mar 26, 2017 Admitting Diagnosis ACUTE DYSARTHRIA; TACHYCARDIA; ?SEIZURES (1) Acute CVA (cerebrovascular accident) ICD Code: I63.9 Diagnosis: Principal Procedures Mechanical ventilation. 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 Per patient's he has right sided upper extremity paralysis and left lower extremity weakness secondary to his stroke. She states he has had some slurred speech but not to the degree that it began 45 minutes ago. Is concerned patient is having a recurrent stroke. He is on Plavix and aspirin at home. Patient denies any headache. No chest or tightness. No difficulty breathing. Patient has not been recently ill. He has been on by mouth baclofen for contractures, however he wasn't able to take those pills for last 24 hours due to difficulty swallowing. CBC/BMP: 03/24/17 0442 03/24/17 0442 Significant Findings Laboratory Tests Test 03/24/17 04:42 Red Blood Count 3.04 MIL/MM3 (4.50-5.90) Hemoglobin 9.0 GM/DL (13.0-17.0) Hematocrit 26.4 % (39.0-51.0) Potassium Level 3.2 MEQ/L (3.5-5.1) Blood Urea Nitrogen 6 MG/DL (7-18) Creatinine 0.47 MG/DL (0.60-1.30) Calcium Level 7.9 MG/DL (8.5-10.1) Alkaline Phosphatase 129 U/L (45-117) Total Protein 5.2 GM/DL (6.4-8.2) Albumin 2.1 GM/DL (3.4-5.0) Imaging CT, MRI head PE at Discharge Deteriorating neurological status. Transfer Summary [facility] Patient will be transferred to the care center after extubation. 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 Per patient's he has right sided upper extremity paralysis and left lower extremity weakness secondary to his stroke. She states he has had some slurred speech but not to the degree that it began 45 minutes ago. Is concerned patient is having a recurrent stroke. He is on Plavix and aspirin at home. Patient denies any headache. No chest or tightness. No difficulty breathing. Patient has not been recently ill. He has been on by mouth baclofen for contractures, however he wasn't able to take those pills for last 24 hours due to difficulty swallowing. Subjective: 03/20; Afebrile. Upon evaluation this a.m., the patient completely aphasic, not responding to any commands. Diaphoretic, and tachycardic. CT brain was negative. Pending MRI this a.m.. Patient has received thus far since admission to the hospital noted Ativan 5 mg in conjunction with 2 mg of morphine in the emergency department. EEG currently underway. Neurology has been consulted. Patient was noted have bladder outlet obstruction previously, Minimal urine output with condom catheter, Zimmerman inserted with slight difficulty now adequate drainage. No seizure activity noted only spasticity at this time, patient continues on baclofen. 03/21: MRI revealed acute right caudate region infarct. Hypercoagulable bowel studies obtained per neurology Dr. Gonzalez, following. Patient previously complained of pelvic pain CT of the abdomen and pelvis results negative. Patient maintaining blood pressure within normal ranges. The patient continues on Plavix. ID consulted, Dr. Peters following. 03/22: Afebrile. Sedation minimized today. Patient is able to utilize left arm in follow commands. Propofol infusion discontinued Right upper extremity continue spasticity, with weakness but movement of hands to follow my commands. CPAP trials initiated today. Family meeting between this afternoon, and per patient's wishes, CODE STATUS changed to DNR. Palliative care consult initiated. Plan for family meeting on Saturday. Family states patient would not want a tracheostomy or PEG tube placement. I discussed with them the possibility of a trial of extubation, later in the week. 03/23: Afebrile. The patient failed CPAP trials this a.m.. Tube feeds at 30 cc noted large amount of residual 200 cc this a.m. Metoclopramide initiated. Blood culture was noted to have gram-positive cocci, resulted staph epidermidis , possible contaminant . 03/24: The family is at bedside. No acute events overnight. CPAP trials are underway. Planned meeting with palliative medicine in the morning, to determine goals of care. Family leaning toward possible hospice, or terminal weaning process. Family have stated emphatically that the patient would not want a tracheostomy or PEG tube to placement. 03/25: Family is firm that patient would not want artificial support for this illness. 03/26: [facility]rangements made [facility] Pt Condition on Discharge: Deteriorating Discharge Disposition: Hospice/Med Facility Discharge Instructions DIET: Follow Instructions for: As Tolerated, No Restrictions Activities you can perform: Regular-No Restrictions Harish Solis MD Mar 26, 2017 11:22
== END 2017-03-26 13:50 | disposition hospice, inpatient (51) | DRG 64 ==
LOC: NEPC 18:17 → NEDA 22:50 → N03B 03-20 02:26
PROVIDERS: ADMIT Internal Medicine Critical Care Medicine; ATTEND Internal Medicine Critical Care Medicine
PROC: 0T9B70Z Drainage of Bladder with Drainage Device, Via Natural or Artificial Opening (ICD-10-PCS; principal; 2017-03-20)
PROC: 5A1955Z Respiratory Ventilation, Greater than 96 Consecutive Hours (ICD-10-PCS; 2017-03-20)
PROC: 0D9670Z Drainage of Stomach with Drainage Device, Via Natural or Artificial Opening (ICD-10-PCS; 2017-03-20)
PROC: 0BH17EZ Insertion of Endotracheal Airway into Trachea, Via Natural or Artificial Opening (ICD-10-PCS; 2017-03-20)
DX: I63.9 Cerebral infarction, unspecified (principal); J69.0 Pneumonitis due to inhalation of food and vomit; J96.01 Acute respiratory failure with hypoxia; G93.40 Encephalopathy, unspecified; R56.9 Unspecified convulsions; R13.10 Dysphagia, unspecified; I69.854 Hemiplegia and hemiparesis following other cerebrovascular disease affecting left non-dominant side; E44.1 Mild protein-calorie malnutrition; I69.351 Hemiplegia and hemiparesis following cerebral infarction affecting right dominant side; I10 Essential (primary) hypertension; F32.9 Major depressive disorder, single episode, unspecified; F41.9 Anxiety disorder, unspecified; M19.90 Unspecified osteoarthritis, unspecified site; R47.81 Slurred speech; Z79.02 Long term (current) use of antithrombotics/antiplatelets; Z79.82 Long term (current) use of aspirin; E78.00 Pure hypercholesterolemia, unspecified; K21.9 Gastro-esophageal reflux disease without esophagitis; Z72.0 Tobacco use; R00.0 Tachycardia, unspecified; G89.29 Other chronic pain; R47.1 Dysarthria and anarthria; M25.511 Pain in right shoulder; I16.0 Hypertensive urgency; R33.9 Retention of urine, unspecified; Z51.5 Encounter for palliative care; Z66 Do not resuscitate; I69.391 Dysphagia following cerebral infarction; Z74.01 Bed confinement status; E78.5 Hyperlipidemia, unspecified
CPT/HCPCS: 31500; 36600; 70450; 70496; 70498; 70551; 71010; 74176; 76937; 80048; 80053; 80061; 80076; 80307; 81001; 81240; 81241; 82140; 82435; 82550; 82552; 82565; 82805; 82947; 82948; 83605; 83735; 84100; 84132; 84145; 84295; 84484; 84520; 85025; 85027; 85303; 85306; 85384; 85597; 85598; 85610; 85613; 85670; 85730; 86147; 86403; 86850; 86900; 86901; 87040; 87070; 87077; 87086; 87186; 87205; 87641; 93005; 93306; 94002; 94003; 94640; 94664; 95819; 96361; 96374; 96376; J0696; J1170; J1644; J1815; J1940; J1953; J1980; J2060; J2270; J2765; J3010; J3480; J7030; J7040; Q9963; Q9967